=== PATIENT | female | born 1955 | race Caucasian/White ===

== ENCOUNTER → 2019-03-10 | Outpatient (CLI) | payer MEDICARE | END | disposition home or self-care (01) | LOC: LABPAT 17:20 | PROVIDERS: ATTEND Orthopaedic Surgery | DX: Z01.812 Encounter for preprocedural laboratory examination (principal) | CPT/HCPCS: 87070 ==

== ENCOUNTER 2019-04-05 05:51 | Day surgery (SDC) | payer MEDICARE ==
--- NOTE | 2019-04-04 10:35 | HP ---
HISTORY AND PHYSICAL CHIEF COMPLAINT: Right knee pain. HISTORY OF PRESENT ILLNESS: The patient is a 64-year-old female on disability, who presents with progressive right knee pain over the past year. She is having pain with normal weightbearing activities. She notes that it does limit her. She has intermittent swelling as well. She has tried medications in addition to previous injections with only partial temporary relief. PAST MEDICAL HISTORY: Significant for arthritis, depression, type 2 diabetes, and COPD. PAST SURGICAL HISTORY: Significant for previous hysterectomy and eye surgery. CURRENT MEDICATIONS: 1. Albuterol. 2. Fluoxetine. 3. Metformin. 4. Symbicort. She denies drug allergies. FAMILY HISTORY: Significant for cancer, hypertension, and diabetes. SOCIAL HISTORY: Significant for 1/4 pack per day tobacco use. 16 POINT REVIEW OF SYSTEMS: Otherwise reviewed and is noncontributory. PHYSICAL EXAMINATION: The patient is approximately 4 foot 8, 239 pounds of endomorphic habitus. HEENT exam is nonfocal. Neck is supple. She has painless passive motion of her right hip. Straight leg raise is negative. Active motion right knee -10 degrees full extension to 110 degrees of flexion. She is tender about the medial joint line. She has mild effusion. Collaterals are stable, Marcio is negative, Pallavi's is equivocal. She has genu varum alignment. Previous x-rays of the right knee obtained in the office show severe medial and patellofemoral compartment narrowing. IMPRESSION: 1. Right knee severe medial patellofemoral compartment osteoarthrosis. 2. Morbid obesity. 3. Hoy-fzvffvw-znrybjwav diabetes. 4. Chronic obstructive pulmonary disease. RECOMMENDATIONS: I talked to the patient at length regarding her condition along with treatment options. At this point, she is quite symptomatic and limited because of pain related to her osteoarthrosis despite extensive conservative measures. After thorough discussion, she opts to proceed with surgery. We will plan to proceed with right total knee arthroplasty. We will institute DVT prophylaxis postoperatively. Risks and benefits were discussed at length in layman's terms. The patient underwent preoperative pulmonary evaluation by Dr. Whiteside and preoperative cardiac evaluation by Dr. Turner. MMODL / YAMILETN: [id number] /
[~2019-04-05 05:51] MED LIST: ACETAMINOPHEN TAB 500 MG TAB PO ONE; MELOXICAM 7.5 MG TAB PO ONE; TRANEXAMIC ACID 1,000 MG in SODIUM CHLORIDE 0.9% 100 ML IVPB ONE
[2019-04-05] MEDS ORDERED: HYDROmorphone 0.5 MG/0.5 ML SYRINGE IVP PRN ×2 (06:03→09:37)
[2019-04-05] MEDS ORDERED: SCOPOLAMINE 1.5MG/72HR PATCH TRANSDERM ONE (06:03)
[2019-04-05] MEDS ORDERED: ONDANSETRON 4 MG/2 ML VIAL IVP ONE (06:03)
[2019-04-05] MEDS ORDERED: MIDAZOLAM 2 MG/2 ML VIAL IV PRN (06:03)
[2019-04-05] MEDS ORDERED: DEXAMETHASONE SOD PHOSPHATE 10 MG/ML 1 ML VIAL IV ONE (06:03)
[2019-04-05] MEDS: LACTATED RINGERS 1,000 ML IV SCH (06:36)
[2019-04-05] MEDS ORDERED: LIDOCAINE 1% 20 ML VIAL (10MG/ML) FOR IV START INTRADERMA ONE (06:36)
[2019-04-05 06:37] LABS: Glucose,Whole Blood 143 mg/dL (75-99)
[2019-04-05] MEDS ORDERED: PROPOFOL 10 MG/ML 20 ML VIAL IV ONE (08:10)
[2019-04-05] MEDS ORDERED: MIDAZOLAM 2 MG/2 ML VIAL ONE (08:10)
[2019-04-05] MEDS ORDERED: SODIUM CHLORIDE 0.9% 100 ML BAG ONE (08:10)
[2019-04-05] MEDS ORDERED: TRANEXAMIC ACID 1,000 MG/10 ML VIAL ONE (08:10)
[2019-04-05] MEDS ORDERED: KETAMINE 10 MG/ML 20 ML VIAL ONE (08:10)
[2019-04-05] MEDS ORDERED: ROPIVACAINE 5MG/ML 20ML VIAL MISCELLANE ONE (08:48)
[2019-04-05] MEDS ORDERED: ROPIVACAINE 246.25 MG, EPINEPHrine 0.5 MG, KETOROLAC 30 MG, cloNIDine HCL/PF 80 MCG, WA... MISCELLANE ONE ×5 (09:00)
[2019-04-05] MEDS ORDERED: ROPIVACAINE 0.2%-NS ON-Q PUMP 1,090 MG, EMPTY PAIN BALL 1 EACH MISCELLANE PRN (09:12)
--- NOTE | 2019-04-05 09:14 | P.ANPRN ---
Procedure Note - Anesthesia - Nerve Block Performed Right Adductor Canal Infusion Time Out Performed: Yes Date of Procedure: 04/05/19 Procedure Start Time: 07:17 Procedure Stop Time: 07:40 Location of Patient Procedure: PreOp Indication: Acute Post-Operative Pain, Requested by Surgeon (uriah) Specifically requested for management of pain by DrAlex: Jr Perea Sedation Type: Sedate with meaningful contact maintained Preparation: Sterile Prep Position: Supine Catheter Depth at Skin (cm): 8 Catheter: Indwelling Needle Types: Pajunk Needle Gauge: 18 Ultrasound used to visualize needle placement: Yes Ultrasound used to observe medication spread: Yes Injectate: 0.5% Ropivacaine (see comment for volume) (20) Blood Aspirated: No Pain Paresthesia on Injection Noted: No Resistance on Injection: Normal Image Stored and Saved: Yes Events: Other (see comment) (Difficult visualization. used two different machines to achieve only a mediocre view.)
[2019-04-05] MEDS ORDERED: ACETAMINOPHEN TAB 325 MG TAB PO PRN (09:37)
[2019-04-05] MEDS ORDERED: HYDROcodone/APAP 7.5-325MG 1 EACH TAB PO PRN (09:37)
[2019-04-05] MEDS ORDERED: ONDANSETRON 4 MG/2 ML VIAL IVP PRN (09:37)
[2019-04-05] MEDS ORDERED: traMADol 50 MG TAB PO PRN (09:37)
[2019-04-05] MEDS ORDERED: MAGNESIUM HYDROXIDE 2,400 MG/10 ML CUP PO PRN (09:37)
[2019-04-05] MEDS ORDERED: NALOXONE 0.4 MG/ML 1 ML VIAL IV PRN (09:37)
--- NOTE | 2019-04-05 10:04 | P.OP ---
Date of Procedure: 04/05/19 Preoperative Diagnosis: Right knee severe tricompartmental osteoarthrosis Postoperative Diagnosis: Same Procedure(s) Performed: Right total knee arthroplastycruciate retainingcemented Implants: Depuy Attune size 3 narrow cemented femoral component, size 2 cemented tibial component, 9 mm articular surface, 29 mm cemented patellar component. This was a cruciate retaining implant. Anesthesia: regional, local, spinal Surgeon: Jr Perea Agricultural Production Engineer #1: Иван Duffy Estimated Blood Loss (ml): 50 Pathology: other (Bone fragments) Condition: stable Disposition: PACU Indications for Procedure: The patient's a 64-year-old female who presents with progressive right knee pain secondary to osteoarthrosis despite conservative treatment. A discussion of the risks and benefits of operative intervention versus continued conservative measures was made with the patient. She opted to proceed with surgery. Operative risks to include infection, neurovascular injury, development of blood clots, possible component loosening, possible component failure need for subsequent procedures was discussed. Informed consent was obtained. Operative Findings: As below Description of Procedure: The patient was brought to the operating room, and after induction of spinal anesthesia the right lower extremity was prepped and draped in a normal fashion. The tourniquet was inflated to 270 mmHg. A longitudinal incision extending 3 finger breaths above the superior pole of the patella extending to the medial aspect the tibial tubercle was then made. The skin and subcutaneous tissues were divided sharply. Electrocautery was used for hemostasis. A medial parapatellar arthrotomy was then performed. The medial soft tissues to include the superficial and deep portions of the medial collateral ligament as well as the medial hamstring tendons were elevated subperiosteally. The proximal medial tibia osteophytes were carefully removed. The patella was everted. The knee was flexed. A portion of the retropatellar fat pad was excised sharply. The anterior cruciate ligament was sacrificed. A starting hole was made in the distal femur 1 cm anterior to the posterior cruciate origin. An intramedullary femoral guide was gently inserted planning on 5 valgus distal cut with 9 mm distal resection. The cutting block was pinned in place. The distal cut was then made. The posterior referencing sizing guide was utilized. 3 of external rotation was built into the system and verified off the trans- epicondylar axis and the posterior condyles. I felt size 3 was most appropriate. The cutting block was pinned in place. The anterior, posterior, and chamfer cuts were then made. The bone fragments were removed. A sulcus cut was then made with the appropriate guide. The trial size 3 femoral component was then placed and was fully seated. There was good anterior to posterior and medial to lateral fit. The distal peg holes were then drilled. The trial c omponent was then removed. Attention was then paid towards preparing the proximal tibia. An extra medullary guide was utilized in line with the tibial shaft and second metatarsal distally. A 7 posterior slope was planned. I planned on 2 mm resection from the medial compartment. The cutting block was pinned in place. The proximal tibial cut was then made. The bone was removed in one fragment. The remnants of the medial and lateral menisci were excised the capsule junction with electrocautery. The tibia sized most appropriately at size 2. The posterior osteophytes off the distal femur were carefully removed with a curved osteotome. The trial tibial and femoral components were placed along with a 9 millimeters articular surface. I was able to obtain full flexion and extension with good stability with varus and valgus stress. After several flexion and extension cycles, the tibial rotation was marked with electrocautery in line with the medial one third of the tibial tubercle. Attention was then paid towards preparing the patella. A patella reamer was utilized taking this down to 14 mm of bone stock. A good flush cut was made. The patella sized most appropriately at 29 millimeters. The peg holes were then drilled. The trial component was placed. The knee was taken through a range of motion. I had good patellofemoral tracking with no hands technique. The trial components were then removed. The tibia was prepared in the appropriate rotation with appropriate drill and keel punch. The flexion and extension gaps were checked and felt to be symmetric. The posterior soft tissues were injected with ropivacaine. The bony surfaces were prepared with pulsatile lavage and dried. The deep tibial component was then cemented in place and was fully seated. Excess cement was removed. The femoral component was cemented in place and was fully seated. Again excess cement was removed. The trial 9 millimeters surface was then inserted in the knee was put in full extension. The patella component was cemented in place. After the cement had sufficiently hardened, the knee was again taken through a range of motion. Again there was good stability in flexion and extension with varus and valgus stress. The trial articular surface was then removed. The final articular surface was placed and was impacted. Care was taken to avoid any soft tissue interposition. Pulsatile lavage was again utilized. The tourniquet was deflated with approximately 50 minutes total tourniquet time. There was minimal drainage therefore a deep drain was not placed. The medial parapatellar arthrotomy was then closed with #2 Ethibond suture. The subcutaneous tissues were reapproximated interrupted 2-0 Vicryl sutures. The skin was reapproximated with 3-0 subarticular strata fix suture. Skin tape and adhesive was applied. A sterile dressing was applied. The patient was then awoken from sedation and transferred to recovery room in good condition. Blood loss was estimated at 50 milliliters. No complications were incurred. Sponge and needle counts were correct at the end the case. Nickolas TORRES assisted during the major components this case to include exposure, bone resection, and implantation.
--- NOTE | 2019-04-05 10:19 | XR ---
EXAMINATION TYPE: XR knee limited RT DATE OF EXAM: 04/05/2019 COMPARISON: NONE TECHNIQUE: Two views submitted HISTORY: Post op FINDINGS: There is a prosthetic knee in near anatomic alignment. There is soft tissue edema and emphysema. Tamayo rgical drain noted. Soft tissue calcifications are likely vascular. IMPRESSION: 1. Postoperative change. Appears in near-anatomic alignment
[2019-04-05 10:24] LABS: Glucose,Whole Blood 174 mg/dL (75-99)
[2019-04-05 11:00] VITALS: BMI 53.8
--- NOTE | 2019-04-05 12:47 | P.CNPUL ---
History of Present Illness Consult date: 04/05/19 Requesting physician: Jr Perea Reason for consult: COPD Chief complaint: Right knee pain History of present illness: This is a very pleasant 64-year-old female patient who follows with Dr. Lyon as her primary care physician. She has a history of diabetes mellitus, depression, osteoarthritis. She has chronic tobacco dependence and subsequent chronic obstructive pulmonary disease, restrictive lung disease, obstructive sleep apnea on home CPAP and follows with Dr. Whiteside in our office for the same. She was seen in the office 03/25/2019 for preop clearance of the right knee replacement. Pulmonary function tests revealed an FEV1 value 53% of predicted with moderate restrictive lung disease. He is seen today in the postoperative period on the regular medical floor. She did undergo a total right knee replacement this morning by Dr. Perea. She is currently awake and alert in no acute distress. She is maintaining good O2 saturations in the 90s on 3 L/m per nasal cannula. She's been afebrile. Hemodynamically stable. Awake and alert in no acute distress. No shortness of breath, cough or congestion. Her pain is well controlled. Anticoagulated with Xarelto. Pain pump in place. Review of Systems REVIEW OF SYSTEMS: CONSTITUTIONAL: Denies any recent significant weight loss or weight gain. EYES: Denies change in vision. EARS, NOSE, MOUTH, THROAT: Denies headaches, denies sore throat. CARDIOVASCULAR: Denies chest pain, palpitations or syncopal episodes. RESPIRATORY: Denies shortness of breath, cough, congestion or hemoptysis. GASTROINTESTINAL: Denies change in appetite, denies abdominal pain GENITOURINARY: Denies hematuria, denies infections. MUSKULOSKELETAL: Ongoing right knee pain. INTEGUMENTARY: Denies rash, denies eczema. NEUROLOGICAL: Denies recent memory loss, no recent seizure activity. PSYCHIATRIC: Denies anxiety, denies depression. HEMATOLOGIC/LYMPHATIC: Denies anemia, denies enlarged lymph nodes. Past Medical History Past Medical History: Asthma, Cancer, COPD, Diabetes Mellitus, Eye Disorder, Hyperlipidemia, Osteoarthritis (OA), Sleep Apnea/CPAP/BIPAP Additional Past Medical History / Comment(s): Uterine CA 2016. Glaucoma. CTS Rt wrist. Uses CPAP. History of Any Multi-Drug Resistant Organisms: None Reported Past Surgical History: Section, Hysterectomy Additional Past Surgical History / Comment(s): C-S x2. D&C. Eyelid surgery. Past Anesthesia/Blood Transfusion Reactions: Previous Problems w/ Anesthesia Additional Past Anesthesia/Blood Transfusion Reaction / Comment(s): Woke up once trying to pull ET tube out, had to be restrained. Past Psychological History: Depression Smoking Status: Former smoker Past Alcohol Use History: Rare Additional Past Alcohol Use History / Comment(s): Smoked 45 years, 1 ppd, quit 02/16/19. Past Drug Use History: None Reported - Past Family History Father Family Medical History: Cancer Medications and Allergies Home Medications Medication Instructions Recorded Confirmed Type Albuterol Inhaler [Ventolin Hfa 1 - 2 puff INHALATION RT-Q6H PRN 04/01/19 04/05/19 History Inhaler] Albuterol Nebulizer 1 inhalation INHALATION QID PRN 04/01/19 04/05/19 History Budesonide-Formot 160-4.5 Mcg 2 puff INHALATION BID 04/01/19 04/05/19 History [Symbicort 160-4.5 Mcg Inhaler] Dapagliflozin Propanediol [Farxiga] 10 mg PO DAILY 04/01/19 04/05/19 History FLUoxetine HCL [PROzac] 20 mg PO DAILY 04/01/19 04/05/19 History HYDROcodone/APAP 5-325MG [Sharon 1 tab PO TID PRN 04/01/19 04/05/19 History 5-325] Latanoprost/Pf [Latanoprost 0.005% 1 drop BOTH EYES HS 04/01/19 04/05/19 History Eye Drop] Montelukast [Singulair] 10 mg PO HS 04/01/19 04/05/19 History Pioglitazone [Actos] 45 mg PO DAILY 04/01/19 04/05/19 History metFORMIN HCL [Glucophage] 850 mg PO BID 04/01/19 04/05/19 History Allergies Allergy/AdvReac Type Severity Reaction Status Date / Time No Known Allergies Allergy Verified 04/05/19 06:24 Physical Exam Vitals: Vital Signs Temp Pulse Pulse Resp BP BP Pulse Ox 04/05/19 10:30 65 16 109/59 95 04/05/19 10:14 60 16 103/56 94 L 04/05/19 09:59 97 F L 60 14 110/57 95 04/05/19 07:48 65 16 122/57 96 04/05/19 06:13 98.8 F 70 16 145/66 93 L Intake and Output 04/04/19 04/05/19 04/05/19 22:59 06:59 14:59 Intake Total 600 475 Output Total 50 Balance 600 425 Intake: IV 600 475 Output: Estimated Blood Loss 50 GENERAL EXAM: Alert, obese pleasant 64-year-old female on 3 L nasal cannula, comfortable in no apparent distress. HEAD: Normocephalic. EYES: Normal reaction of pupils, equal size. NOSE: Clear with pink turbinates. THROAT: Crowding of the posterior pharynx. No erythema or exudates. NECK: Short. No masses, no JVD. CHEST: No chest wall deformity. LUNGS: Equal air entry with no crackles, wheeze, rhonchi or dullness. CVS: S1 and S2 normal with no audible murmur, regular rhythm. ABDOMEN: No hepatosplenomegaly, normal bowel sounds, no guarding or rigidity. SPINE: No scoliosis or deformity SKIN: No rashes CENTRAL NERVOUS SYSTEM: No focal deficits, tone is normal in all 4 extremities. EXTREMITIES: Genaro wrap to the right knee. Pain pump in place. Peripheral pulses intact. Results - Laboratory Findings Abnormal lab findings: Abnormal Labs 04/05/19 04/05/19 06:35 10:22 POC Glucose (mg/dL) 143 H 174 H Assessment and Plan Assessment: #1 Right knee pain status post total right knee arthroplasty, postoperative day #0. #2 Osteoarthritis. #3 Morbid obesity. #4 Obstructive sleep apnea, utilizing home CPAP. #5 Chronic tobacco dependence. #6 Chronic obstructive/restrictive pulmonary disease, currently inactive and stable. #7 Diabetes mellitus. #8 History of depression. Plan: The patient was seen and evaluated by Dr. Whiteside. She is currently stable from the pulmonary standpoint. We will order Symbicort and albuterol inhalations. Continue Singulair. Pain is adequately controlled. Add incentive spirometer. Increase her activity as tolerated. Anticoagulated with Xarelto. We'll continue to follow and make further recommendations based on her clinical status. I, the cosigning physician, performed a history & physical examination of the patient. Lungs sounds are clear. Maintaining good O2 saturations in the 90s on 3 L/m per nasal cannula. I discussed the assessment and plan of care with my nurse practitioner, Erica Blake. I attest to the above note as dictated by her. Time with Patient: Greater than 30
[2019-04-05] MEDS: HYDROcodone/APAP 7.5-325MG 1 EACH TAB PO PRN ×2 (15:27→19:48)
[2019-04-05] MEDS: metFORMIN 850 MG TAB PO SCH (17:44)
[2019-04-05] MEDS: ALBUTEROL NEBULIZED 2.5 MG/3 ML INHALATION PRN (19:43)
[2019-04-05] MEDS: SYMBICORT 160-4.5 MCG INHALER INHALATION SCH (19:44)
[2019-04-05 20:21] LABS: Glucose,Whole Blood 237 mg/dL (75-99)
[2019-04-05] MEDS ORDERED: SENNOSIDES-DOCUSATE SODIUM 1 EACH TAB PO SCH (21:00)
[2019-04-05] MEDS ORDERED: MONTELUKAST 10 MG TAB PO SCH (21:00)
[2019-04-06] MEDS: HYDROcodone/APAP 7.5-325MG 1 EACH TAB PO PRN ×2 (05:39→12:18)
[2019-04-06] MEDS: LACTATED RINGERS 1,000 ML IV SCH (06:22)
[2019-04-06 07:19] LABS: Anisocytosis Slight; Basophils % (A) 0 %; Eosinophils % (A) 0 %; HCT 45.4 % (34.0-46.0); HGB 13.7 gm/dL (11.4-16.0); Hypochromasia Slight; Lymphocytes % (A) 6 %; MCH 25.1 pg (25.0-35.0); MCHC 30.2 g/dL (31.0-37.0); Mean Platelet Volume 7.4; Monocytes # (A) 0.6 k/uL (0-1.0); Monocytes % (A) 4 %; Neutrophils # (A) 14.5 k/uL (1.3-7.7); Neutrophils % (A) 89 %; Platelet Count 315 k/uL (150-450); RBC 5.47 m/uL (3.80-5.40); RDW 16.6 % (11.5-15.5); WBC 16.3 k/uL (3.8-10.6)
[2019-04-06] MEDS: ALBUTEROL NEBULIZED 2.5 MG/3 ML INHALATION PRN (07:46)
[2019-04-06] MEDS: SYMBICORT 160-4.5 MCG INHALER INHALATION SCH (07:46)
[2019-04-06] MEDS: metFORMIN 850 MG TAB PO SCH (08:17)
[2019-04-06 08:24] VITALS: BP 120/67; PULSE 68; RESP 16; TEMP 98.1
[2019-04-06] MEDS ORDERED: RIVAROXABAN 10 MG TAB PO SCH (09:00)
[2019-04-06] MEDS ORDERED: PIOGLITAZONE 45 MG TAB PO SCH (09:00)
[2019-04-06] MEDS ORDERED: FLUoxetine HCL 20 MG CAP PO SCH (09:00)
--- NOTE | 2019-04-06 11:28 | P.PN ---
Subjective Progress Note Date: 04/06/19 Principal diagnosis: Status post right total knee arthroplasty Patient evaluated at bedside, she's resting comfortably. She's ambulated well with therapy. She denies any chest pain or shortness of breath. Her pain is controlled. Objective - Vital Signs Vital signs: Vital Signs Temp 98.1 F 04/06/19 08:23 Pulse 68 04/06/19 08:23 Resp 16 04/06/19 08:23 BP 120/67 04/06/19 08:23 Pulse Ox 94 L 04/06/19 08:23 Intake & Output 04/05/19 04/06/19 04/06/19 18:59 06:59 18:59 Intake Total 919 Output Total 50 Balance 869 Intake: IV 475 Oral 444 Output: Estimated Blood Loss 50 Other: Voiding Method Toilet Toilet # Voids 1 1 - Exam Right lower extremity: Incision is clean, dry, and intact. The exofin fusion tape is in good condition. There is minimal soft tissue swelling and ecchymosis surrounding the medial and lateral aspects of the incision. Calf is soft, no tenderness with palpation. Plantar flexion, dorsiflexion, EHL, FHL are intact. Sensory exam to light touch throughout the extremity is intact, dorsal pedis pulses 2+. - Labs CBC & Chem 7: 04/06/19 06:46 Labs: Abnormal Lab Results - Last 24 Hours (Table) 04/05/19 04/06/19 Range/Units 20:13 06:46 WBC 16.3 H (3.8-10.6) k/uL RBC 5.47 H (3.80-5.40) m/uL MCHC 30.2 L (31.0-37.0) g/dL RDW 16.6 H (11.5-15.5) % Neutrophils # 14.5 H (1.3-7.7) k/uL POC Glucose (mg/dL) 237 H (75-99) mg/dL Assessment and Plan Plan: Assessment: Postop day #1 status post right total knee arthroplasty Plan: Pain control, discharge on oral medication GI and DVT prophylaxis, aspirin 81 mg twice a day Wound care instructions discussed Ice and elevate often Medical recommendations Plan for discharge home today Time with Patient: Less than 30
--- NOTE | 2019-04-06 11:33 | P.DS ---
Providers Date of admission: 04/05/2019 Expected date of discharge: 04/06/19 Attending physician: Jr Perea Consults: 04/05/19 09:39 Consult Physician Routine Consulting Provider: Gary Whiteside Reason/Comments: Medical Management Do you want consulting provider notified?: Yes Primary care physician: Zachariah Lyon Hospital Course: Date of admission: 04/05/2019 Date of discharge: 04/06/2019 Admission diagnosis: Status post right total knee arthroplasty Discharge diagnosis: Same Attending physician: Dr. Perea Surgical procedures: Right total knee arthroplasty Brief history: Patient is a 64-year-old female with a history of progressive primary right knee osteoarthritis. At this point patient has failed conservative treatment measures and has opted to proceed with a elective right total knee arthroplasty. Hospital course: Details of patient's surgery can be found in operative report. Patient tolerated the procedure well and was subsequently transported to orthopedic floor. Patient's orthopeidc and medical care was provided daily. Patient had daily laboratory tests performed for evaluation of overall blood counts. Patient had daily physical therapy to include strengthening range of motion as well as education with walker ambulation. Patient had daily CPM usage as part of their physical therapy program. Patient was treated with Xarelto for their postoperative DVT prophylaxis during their inpatient stay. Patient was noted to have a relatively uneventful postoperative course. Patient reported satisfactory pain control with oral pain medications by postoperative day 0. Patient showed satisfactory progress with physical therapy. Patient moved steadily through the program and had no difficulty meeting the goals by postoperative day 1. Given patient's otherwise satisfactory course and having met physical therapy goals, plan is to discharge patient home on postoperative day 1. Discharge condition/disposition: Patient will be discharged home in stable condition. Discharge medications: Instructions are given on resumption of patient's normal daily medications per primary care recommendation, in addition patient will be prescribed [place] 7.5 mg/325 mg, Colace 200 mg, Eliquis 2.5mg. Discharge instructions: 1. Wound care and infection precautions, keep incision dry and covered while showering , no lotions, creams, moisturizers. No soaking, tubs, pools, hottubs. Do not scrub over the incision. 2. Weight-bear as tolerated with walker / cane until follow-up. 3. Ice and elevate when necessary. Do not exceed 20 minutes per hour with ice pack. 4. Utilize compression sleeve until seen at first follow up appointment. 5. Visiting nursing care. 6. Home physical therapy including home CPM. 7. Pain meds and anticoagulants per prescription. 8. Pain medication has potential to cause constipation. Increase oral fluid and fiber intake. Contact primary care provider if you have not had a bowel movement within 48 hours after discharge 9. No anti-inflammatory medication until discussed at first post operative visit, this including Motrin, Aleve, Mobic, Diclofenac. 10. Follow up in office at 2 weeks postop with Nickolas Duffy PA-C 11. Follow up with your primary care doctor 7-10 days after discharge. 12. Contact [facility] with any questions, . Procedures: Right total knee arthroplasty Patient Condition at Discharge: Good Plan - Discharge Summary Discharge Rx Participant: No New Discharge Prescriptions: New Docusate [Colace] 100 mg PO DAILY #30 capsule Apixaban [Eliquis] 2.5 mg PO BID #60 tab HYDROcodone/APAP 7.5-325MG [[place] 7.5] 1 - 2 each PO Q6HR PRN #56 tab PRN Reason: Pain No Action Budesonide-Formot 160-4.5 Mcg [Symbicort 160-4.5 Mcg Inhaler] 2 puff INHALATION BID Albuterol Inhaler [Ventolin Hfa Inhaler] 1 - 2 puff INHALATION RT-Q6H PRN PRN Reason: COPD Pioglitazone [Actos] 45 mg PO DAILY FLUoxetine HCL [PROzac] 20 mg PO DAILY HYDROcodone/APAP 5-325MG [[place] 5-325] 1 tab PO TID PRN PRN Reason: Pain Dapagliflozin Propanediol [Farxiga] 10 mg PO DAILY metFORMIN HCL [Glucophage] 850 mg PO BID Montelukast [Singulair] 10 mg PO HS Albuterol Nebulizer 1 inhalation INHALATION QID PRN PRN Reason: COPD Latanoprost/Pf [Latanoprost 0.005% Eye Drop] 1 drop BOTH EYES HS Discharge Medication List Albuterol Inhaler [Ventolin Hfa Inhaler] 1 - 2 puff INHALATION RT-Q6H PRN 04/01/19 [History] Albuterol Nebulizer 1 inhalation INHALATION QID PRN 04/01/19 [History] Budesonide-Formot 160-4.5 Mcg [Symbicort 160-4.5 Mcg Inhaler] 2 puff INHALATION BID 04/01/19 [History] Dapagliflozin Propanediol [Farxiga] 10 mg PO DAILY 04/01/19 [History] FLUoxetine HCL [PROzac] 20 mg PO DAILY 04/01/19 [History] Latanoprost/Pf [Latanoprost 0.005% Eye Drop] 1 drop BOTH EYES HS 04/01/19 [History] Montelukast [Singulair] 10 mg PO HS 04/01/19 [History] Pioglitazone [Actos] 45 mg PO DAILY 04/01/19 [History] metFORMIN HCL [Glucophage] 850 mg PO BID 04/01/19 [History] Apixaban [Eliquis] 2.5 mg PO BID #60 tab 04/06/19 [Rx] Docusate [Colace] 100 mg PO DAILY #30 capsule 04/06/19 [Rx] HYDROcodone/APAP 7.5-325MG [[place] 7.5] 1 - 2 each PO Q6HR PRN #56 tab 04/06/19 [Rx] Follow up Appointment(s)/Referral(s): [facility], [NON-STAFF] - 1 Week Zachariah Lyon MD [Primary Care Provider] - 1 Week Иван Duffy PAC [PHYSICIAN PINION POLISHER] - 04/20/19 3:00 pm Activity/Diet/Wound Care/Special Instructions: Orthopedic Discharge Instructions: 1. Wound care and infection precautions, keep incision dry and covered while showering, no lotions, creams, moisturizers. No soaking, pools, hot tubs. Do not scrub over incision. 2. Weight-bear as tolerated with walker / cane until follow-up. 3. Ice and elevate when necessary. Do not exceed 20 minutes per hour with ice pack. 4. Utilize compression sleeve until seen at first follow up appointment. 5. Pain meds and anticoagulants per prescription. 6. Pain medication has potential to cause constipation. Increase oral fluid and fiber intake. Contact primary care provider if you have not had a bowel movement within 48 hours after discharge. 7. No anti-inflammatory medication until discussed at first post operative visit, this including Motrin, Aleve, Mobic, Diclofenac. 8. Follow up in office at 2 weeks postop with Nickolas Duffy PA-C 9. Follow up with your primary care doctor 7-10 days after discharge. 10. Contact [facility] with any questions, [phone]. 11. *Please call [facility] once home to arrange delivery of Continuous Passive Motion (CPM) machine - [phone] Discharge Disposition: HOME WITH HOME HEALTH SERVICES
[2019-04-06 11:49] LABS: Glucose,Whole Blood 146 mg/dL (75-99)
--- NOTE | 2019-04-06 12:12 | P.PN ---
Progress Note - Text Anesthesia POD 1. Patient is status post right TKR under spinal anesthesia with a right adductor canal catheter placed for postoperative pain relief. With ropivacaine 0.2% running at 8 cc's per hour, the patient's VAS is (1, 3). Catheter site is clean dry and intact.
--- NOTE | 2019-04-06 12:20 | P.PN ---
Subjective Progress Note Date: 04/06/19 Principal diagnosis: Right knee pain status post right total knee arthroplasty, history of COPD, and obstructive sleep apnea On 04/06/2019 patient seen in follow-up on medical surgical floor. She is awake and alert, she is resting comfortably in bed, she is on room air, she did wear her CPAP unit from home last night. She denies any respiratory difficulty, no chest pain, lung sounds are clear to auscultation, no acute issues overnight, she has already been up out of bed with a walker, and physical therapy, tolerated activity very well, she is working on the incentive spirometer, Nasal[place] of coaching and encouragement, she is only to 250-500 on the today. The pain is controlled. Today's labs have been reviewed, white blood cell count of 16.3, hemoglobin is 13.7, there have been no fever or chills, vital signs have been stable. Objective - Vital Signs Vital signs: Vital Signs Temp 98.1 F 04/06/19 08:23 Pulse 68 04/06/19 08:23 Resp 16 04/06/19 08:23 BP 120/67 04/06/19 08:23 Pulse Ox 94 L 04/06/19 08:23 Intake & Output 04/05/19 04/06/19 04/06/19 18:59 06:59 18:59 Intake Total 919 Output Total 50 Balance 869 Intake: IV 475 Oral 444 Output: Estimated Blood Loss 50 Other: Voiding Method Toilet Toilet # Voids 1 1 - Exam GENERAL EXAM: Alert, pleasant, 64-year-old obese white female, comfortable in no apparent distress. HEAD: Normocephalic/atraumatic. EYES: Normal reaction of pupils, equal size. Conjunctiva pink, sclera white. NOSE: Clear with pink turbinates. THROAT: No erythema or exudates. NECK: No masses, no JVD, no thyroid enlargement, no adenopathy. CHEST: No chest wall deformity. Symmetrical expansion. LUNGS: Equal air entry with no crackles, wheeze, rhonchi or dullness. CVS: Regular rate and rhythm, normal S1 and S2, no gallops, no murmurs, no rubs ABDOMEN: Soft, nontender, obese. No hepatosplenomegaly, normal bowel sounds, no guarding or rigidity. EXTREMITIES: No clubbing, no edema, no cyanosis, 2+ pulses and upper and lower extremities. Right knee dressing is clean dry and intact, right thigh pain infusion catheter in place MUSCULOSKELETAL: Muscle strength and tone normal. SPINE: No scoliosis or deformity SKIN: No rashes CENTRAL NERVOUS SYSTEM: Alert and oriented -3. No focal deficits, tone is normal in all 4 extremities. PSYCHIATRIC: Alert and oriented -3. Appropriate affect. Intact judgment and insight. - Labs CBC & Chem 7: 04/06/19 06:46 Labs: Abnormal Lab Results - Last 24 Hours (Table) 04/05/19 04/06/19 04/06/19 Range/Units 20:13 06:46 11:45 WBC 16.3 H (3.8-10.6) k/uL RBC 5.47 H (3.80-5.40) m/uL MCHC 30.2 L (31.0-37.0) g/dL RDW 16.6 H (11.5-15.5) % Neutrophils # 14.5 H (1.3-7.7) k/uL POC Glucose (mg/dL) 237 H 146 H (75-99) mg/dL Assessment and Plan Plan: Assessment: #1 Right knee pain status post total right knee arthroplasty, postoperative day #1. #2 Osteoarthritis. #3 Morbid obesity. #4 Obstructive sleep apnea, utilizing home CPAP. #5 Chronic tobacco dependence. #6 Chronic obstructive/restrictive pulmonary disease, currently inactive and sta ble. #7 Diabetes mellitus. #8 History of depression. Plan: Patient remains stable from pulmonary perspective, no acute issues overnight, continue encouraging deep breathing and coughing, she has been up out of bed with a walker and physical therapy, tolerated activity well, pain is under good control. She is on oral anticoagulation, she has her CPAP unit from home and she is utilizing it at night. No specific complaints. Anticipate discharge home today I performed a history & physical examination of the patient and discussed their management with my nurse practitioner, Pauly Blackburn. I reviewed the nurse practitioner's note and agree with the documented findings and plan of care. Lung sounds are positive for clear breath sounds. The findings and the impression was discussed with the patient. I attest to the documentation by the nurse practitioner. Time with Patient: Less than 30
== END 2019-04-06 13:47 | disposition home health service (06) ==
LOC: OR 05:51 → 4SSUR 09:38 → OR 04-06 13:47
PROVIDERS: ATTEND Orthopaedic Surgery
DX: M17.11 Unilateral primary osteoarthritis, right knee (principal); M21.161 Varus deformity, not elsewhere classified, right knee; F32.9 Major depressive disorder, single episode, unspecified; E11.9 Type 2 diabetes mellitus without complications; J44.9 Chronic obstructive pulmonary disease, unspecified; I25.10 Atherosclerotic heart disease of native coronary artery without angina pectoris; Z90.710 Acquired absence of both cervix and uterus; E66.01 Morbid (severe) obesity due to excess calories; Z87.891 Personal history of nicotine dependence; Z68.43 Body mass index [BMI] 50.0-59.9, adult; Z97.2 Presence of dental prosthetic device (complete) (partial); E78.5 Hyperlipidemia, unspecified; G47.33 Obstructive sleep apnea (adult) (pediatric); Z99.89 Dependence on other enabling machines and devices; Z85.42 Personal history of malignant neoplasm of other parts of uterus; I51.7 Cardiomegaly; Z80.9 Family history of malignant neoplasm, unspecified; Z82.49 Family history of ischemic heart disease and other diseases of the circulatory system; Z84.89 Family history of other specified conditions; Z83.3 Family history of diabetes mellitus; Z80.42 Family history of malignant neoplasm of prostate; Z79.84 Long term (current) use of oral hypoglycemic drugs; Z79.51 Long term (current) use of inhaled steroids; Z79.899 Other long term (current) drug therapy; Z79.891 Long term (current) use of opiate analgesic; H40.9 Unspecified glaucoma
CPT/HCPCS: 94640 ×4; 97161; 64448; 76942; 88305; 85025; 88311; 73560; 27447; C1713; C1776; J2250; J1100; J0690 ×2; J2405; J2704; J1170; J2795 ×2

== ENCOUNTER 2019-11-15 09:42 | Inpatient (IN) | payer MEDICARE ==
--- NOTE | 2019-11-15 10:15 | ED ---
Neuro HPI - General Chief Complaint: Neuro Symptoms/Deficit Stated Complaint: scott's palsy Time Seen by Provider: 11/15/19 09:52 Source: patient, RN notes reviewed Mode of arrival: ambulatory Limitations: no limitations - History of Present Illness Is the patient presenting with stroke symptoms?: Yes Last Known Well Date: 11/15/19 Last Known Well Time: 03:00 Initial Comments: This is a 64-year-old female history of COPD asthma type 2 diabetes also obesity and a smoker who states he had the onset about 3 AM this morning of what she thinks is Scott's palsy she feels similar when she had to 35 years ago 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 She denies any headache blurry vision loss of function to her upper or lower extremities no fevers chills sweats trauma or other modifying factors at this time. - Related Data Home Medications: Home Medications Medication Instructions Recorded Confirmed Dapagliflozin Propanediol [Farxiga] 10 mg PO DAILY 04/01/19 11/15/19 FLUoxetine HCL [PROzac] 20 mg PO DAILY 04/01/19 11/15/19 Montelukast [Singulair] 10 mg PO HS 04/01/19 11/15/19 metFORMIN HCL [Glucophage] 850 mg PO BID 04/01/19 11/15/19 Allergies/Adverse Reactions: Allergies Allergy/AdvReac Type Severity Reaction Status Date / Time No Known Allergies Allergy Verified 11/15/19 11:23 Review of Systems ROS Statement: Those systems with pertinent positive or pertinent negative responses have been documented in the HPI. ROS Other: All systems not noted in ROS Statement are negative. General Exam - General Exam Comments Initial Comments: This is a well-developed morbidly obese female who is awake alert oriented 3 Limitations: no limitations General appearance: alert, in no apparent distress Head exam: Present: atraumatic, normocephalic, normal inspection Eye exam: Present: PERRL, EOMI Pupils: Present: other (There is appear to be lid lag on the left however some facial asymmetry on the right lower face) ENT exam: Present: other Neck exam: Present: normal inspection, full ROM, other (No stridor JVD or bruits) Respiratory exam: Present: normal lung sounds bilaterally. Absent: respiratory distress, wheezes, rales, rhonchi, stridor Cardiovascular Exam: Present: regular rate, normal rhythm, normal heart sounds. Absent: systolic murmur, diastolic murmur, rubs, gallop, clicks GI/Abdominal exam: Present: soft, normal bowel sounds, other (Obese abdomen). Absent: distended, tenderness, guarding, rebound, rigid Extremities exam: Present: normal inspection, full ROM, normal capillary refill. Absent: tenderness, pedal edema, joint swelling, calf tenderness Back exam: Present: normal inspection Neurological exam: Present: alert, oriented X3, CN II-XII intact Psychiatric exam: Present: normal affect, normal mood Skin exam: Present: warm, dry, intact, normal color. Absent: rash Stroke MDM - Lab Data Result diagrams: 11/15/19 10:15 11/15/19 10:18 Lab Results 11/15/19 11/15/19 11/15/19 Range/Units 10:15 10:18 10:18 WBC 7.0 (3.8-10.6) k/uL RBC 6.12 H (3.80-5.40) m/uL Hgb 15.7 (11.4-16.0) gm/dL Hct 50.6 H (34.0-46.0) % MCV 82.7 (80.0-100.0) fL MCH 25.6 (25.0-35.0) pg MCHC 31.0 (31.0-37.0) g/dL RDW 16.0 H (11.5-15.5) % Plt Count 235 (150-450) k/uL Neutrophils % 75 % Lymphocytes % 15 % Monocytes % 5 % Eosinophils % 3 % Basophils % 1 % Neutrophils # 5.3 (1.3-7.7) k/uL Lymphocytes # 1.0 (1.0-4.8) k/uL Monocytes # 0.3 (0-1.0) k/uL Eosinophils # 0.2 (0-0.7) k/uL Basophils # 0.1 (0-0.2) k/uL Hypochromasia Slight PT 10.5 (9.0-12.0) sec INR 1.0 (<1.2) APTT 24.0 (22.0-30.0) sec Sodium 133 L (137-145) mmol/L Potassium 4.8 (3.5-5.1) mmol/L Chloride 101 (98-107) mmol/L Carbon Dioxide 25 (22-30) mmol/L Anion Gap 7 mmol/L BUN 14 (7-17) mg/dL Creatinine 0.69 (0.52-1.04) mg/dL Est GFR (CKD-EPI)AfAm >90 (>60 ml/min/1.73 sqM) Est GFR (CKD-EPI)NonAf >90 (>60 ml/min/1.73 sqM) Glucose 500 H (74-99) mg/dL Calcium 9.0 (8.4-10.2) mg/dL Total Bilirubin 0.4 (0.2-1.3) mg/dL AST 44 H (14-36) U/L ALT 29 (4-34) U/L Alkaline Phosphatase 229 H (38-126) U/L Creatine Kinase 34 (30-135) U/L Troponin I (0.000-0.034) ng/mL Total Protein 6.9 (6.3-8.2) g/dL Albumin 3.5 (3.5-5.0) g/dL 11/15/19 Range/Units 10:18 WBC (3.8-10.6) k/uL RBC (3.80-5.40) m/uL Hgb (11.4-16.0) gm/dL Hct (34.0-46.0) % MCV (80.0-100.0) fL MCH (25.0-35.0) pg MCHC (31.0-37.0) g/dL RDW (11.5-15.5) % Plt Count (150-450) k/uL Neutrophils % % Lymphocytes % % Monocytes % % Eosinophils % % Basophils % % Neutrophils # (1.3-7.7) k/uL Lymphocytes # (1.0-4.8) k/uL Monocytes # (0-1.0) k/uL Eosinophils # (0-0.7) k/uL Basophils # (0-0.2) k/uL Hypochromasia PT (9.0-12.0) sec INR (<1.2) APTT (22.0-30.0) sec Sodium (137-145) mmol/L Potassium (3.5-5.1) mmol/L Chloride (98-107) mmol/L Carbon Dioxide (22-30) mmol/L Anion Gap mmol/L BUN (7-17) mg/dL Creatinine (0.52-1.04) mg/dL Est GFR (CKD-EPI)AfAm (>60 ml/min/1.73 sqM) Est GFR (CKD-EPI)NonAf (>60 ml/min/1.73 sqM) Glucose (74-99) mg/dL Calcium (8.4-10.2) mg/dL Total Bilirubin (0.2-1.3) mg/dL AST (14-36) U/L ALT (4-34) U/L Alkaline Phosphatase (38-126) U/L Creatine Kinase (30-135) U/L Troponin I <0.012 (0.000-0.034) ng/mL Total Protein (6.3-8.2) g/dL Albumin (3.5-5.0) g/dL - NIH Stroke Scale 1a. Level of Consciousness: (0) alert 1b. LOC Questions: (0) answers correctly 1c. LOC Commands: (0) performs tasks correctly 2. Best Gaze: (0) normal 3. Visual: (0) no visual loss 4. Facial Palsy: (2) partial paralysis 5a. Motor Arm Left: (0) no drift 5b. Motor Arm Right: (0) no drift 6a. Motor Leg Left: (0) no drift 6b. Motor Leg Right: (0) no drift 7. Limb Ataxia: (0) absent 8. Sensory: (0) normal 9. Best Language: (0) no aphasia 10. Dysarthria: (0) normal 11. Extinction/Inattention: (0) no abnormality Past Medical History Past Medical History: Asthma, COPD, Diabetes Mellitus, Sleep Apnea/CPAP/BIPAP History of Any Multi-Drug Resistant Organisms: None Reported Past Surgical History: Section, Hysterectomy, Joint Replacement Additional Past Surgical History / Comment(s): eyelid surgery, right knee replacement Past Psychological History: Depression Smoking Status: Current every day smoker Past Alcohol Use History: None Reported Past Drug Use History: None Reported Course Vital Signs 11/15/19 11/15/19 11/15/19 09:45 10:36 10:54 Temperature 97.9 F 98.6 F 98.6 F Pulse Rate 63 63 91 Respiratory 18 18 18 Rate Blood Pressure 139/75 110/53 113/53 O2 Sat by Pulse 93 L 96 93 L Oximetry - Reevaluation(s) Reevaluation #1: 11/15/19 12:46 I did reevaluate patient several occasions I did talk to Dr. Kerr we did respond to a code stroke. Patient now seems to demonstrate evidence of 4 head involvement on the right CTs were negative for evidence of acute obstruction. The recommendation was for admission and neuro evaluation. The patient has agreed with this. Critical Care Time Critical Care Time: Yes Total Critical Care Time: 31 Critical Care Time: 31 minutes of critical care time which includes initial presentation with history physical labs x-rays several reevaluation the patient. Discussion with the neuro interventional is. Discussed with the admitting physician Dr. Mtz admission orders and documentation of the above Disposition Clinical Impression: Cerebrovascular accident (CVA), Scott's palsy Disposition: ADMITTED IP TO THIS HOSP Condition: Fair Referrals: Zachariah Lyon MD [Primary Care Provider] - 1-2 days
--- NOTE | 2019-11-15 10:41 | CT ---
EXAMINATION TYPE: CT brain wo con DATE OF EXAM: 11/15/2019 COMPARISON: None HISTORY: CODE STROKE Unenhanced CT of the brain was performed. The ventricles, basal cisterns and sulci overlying the cerebral convexities demonstrate mild enlargem ent. There is no evidence for intracranial hemorrhage or sulcal effacement. There is decreased attenuation about the periventricular white matter and deep white matter of both c erebral hemispheres, compatible with chronic small vessel ischemia. Differential diagnosis does inclu de demyelination. No mass effects are seen.No midline shift. Osseous calvarium is intact. If symptoms persist consider MRI. IMPRESSION: 1. Age related atrophic and chronic small vessel ischemic change without acute intracranial process s een at this time.
[2019-11-15 10:42] LABS: Basophils # (A) 0.1 k/uL (0-0.2); Basophils % (A) 1 %; Eosinophils # (A) 0.2 k/uL (0-0.7); Eosinophils % (A) 3 %; HCT 50.6 % (34.0-46.0); HGB 15.7 gm/dL (11.4-16.0); Hypochromasia Slight; Lymphocytes % (A) 15 %; MCH 25.6 pg (25.0-35.0); MCV 82.7 fL (80.0-100.0); Mean Platelet Volume 8.7; Monocytes # (A) 0.3 k/uL (0-1.0); Monocytes % (A) 5 %; Neutrophils # (A) 5.3 k/uL (1.3-7.7); Neutrophils % (A) 75 %; Platelet Count 235 k/uL (150-450); RBC 6.12 m/uL (3.80-5.40)
[2019-11-15 10:54] LABS: ALT 29 U/L (4-34); AST 44 U/L (14-36); African American GFR (CKD) >90 (>60 ml/min/1.73 sqM); Albumin 3.5 g/dL (3.5-5.0); Alkaline Phosphatase 229 U/L (38-126); Anion Gap 7 mmol/L; Blood Urea Nitrogen 14 mg/dL (7-17); Carbon Dioxide 25 mmol/L (22-30); Chloride 101 mmol/L (98-107); Creatine Kinase 34 U/L (30-135); Non-African American GFR(CKD) >90 (>60 ml/min/1.73 sqM); Potassium 4.8 mmol/L (3.5-5.1); Sodium 133 mmol/L (137-145); Total Bilirubin 0.4 mg/dL (0.2-1.3); Total Protein 6.9 g/dL (6.3-8.2)
[2019-11-15 10:58] LABS: Prothrombin Time 10.5 sec (9.0-12.0)
[2019-11-15 11:22] LABS: Glucose 500 mg/dL (74-99)
--- NOTE | 2019-11-15 11:35 | XR ---
EXAMINATION TYPE: XR chest 2V DATE OF EXAM: 11/15/2019 COMPARISON: 03/25/2019 TECHNIQUE: PA and lateral views submitted. HISTORY: Left-sided facial weakness FINDINGS: Heart is enlarged there is bilateral areas of pleural thickening and subsegmental consolidation. Biap ical pleural thickening. Mildly prominent interstitium. Hypertrophic and degenerative change of the s [place]. IMPRESSION: 1. Cardiomegaly with basilar infiltrate and tiny effusion or pleural thickening correlate clinically. 2. Prominent interstitium can be associated with chronic interstitial lung disease or interstitial pn eumonitis correlate clinically.
--- NOTE | 2019-11-15 12:10 | CT ---
EXAMINATION TYPE: CT angio head neck DATE OF EXAM: 11/15/2019 COMPARISON: CT brain from earlier in the day HISTORY: Neuro Deficit, acute, stroke suspected CT DLP: 639.5 mGycm CONTRAST: Performed without and with IV Contrast, patient injected with 65 ml mL of Isovue 370. Combination Contrast CTA cervical carotids and [place] CTA cervical carotids with 3-D recons truction Contrast CTA of the cervical carotids was performed 3-D reconstruction imaging obtained at a separate workstation. Right carotid system: Mild plaque is seen of the right common carotid artery. There is mild plaque a lso noted at the carotid bulb and proximal ICA. No significant diameter reduction. ECA is patent. Right vertebral artery appears unremarkable. Left carotid system: Mild plaque is seen of the left common carotid artery. There is mild plaque als o noted at the carotid bulb and proximal ICA. No significant diameter reduction. ECA is patent. Lef t vertebral artery appears unremarkable. IMPRESSION: 1. No significant diameter reduction to account for the patient's symptoms. CTA [place] with 3-D reconstruction Contrast CTA of the [place] was performed 3-D reconstruction imaging obtained at a separate workstation. Vertebrobasilar system as well as intracranial portions of the internal carotid arteries and their ma veronica tributaries are patent. I do not see evidence for sizable aneurysm or vascular malformation. Pl ease note MRI provides greater sensitivity and specificity. Visualized brain appears grossly unremar kable. IMPRESSION: 1. No significant abnormality.
[2019-11-15] MEDS ORDERED: ASPIRIN 325 MG TAB PO STA (12:49)
[2019-11-15] MEDS: SODIUM CHLORIDE 0.9% 1,000 ML IV SCH ×2 (13:22→20:34)
[2019-11-15] MEDS ORDERED: INSULIN ASPART (NovoLOG) 100 UNIT/ML VIAL SQ SCH (17:30)
[2019-11-15] MEDS ORDERED: ALPRAZolam 0.25 MG TAB PO PRN (19:23)
[2019-11-15 19:32] LABS: Glucose,Whole Blood 441 mg/dL (75-99)
--- NOTE | 2019-11-15 20:05 | HP ---
HISTORY AND PHYSICAL DATE OF SERVICE: 11/15/2019 CHIEF COMPLAINTS: Right-sided facial weakness and dribbling of fluids. HISTORY OF PRESENT ILLNESS: This 64-year-old woman with a past medical history of multiple medical problems, including history of asthma, history of COPD, diabetes mellitus, type 2, history of DJD, history of pneumonia, history of sleep apnea, history of section, hysterectomy, history of depression, being followed by Dr. Lyon in the outpatient setting, was noted to have some weakness of the right side of the face; patient unable to drink properly because of some leaking. Patient also had old left palsy on the left side, so the left eye was difficult to close. Because of new symptoms, the patient came to [facility] and was admitted for further evaluation and treatment. Acute stroke was suspected. Neurology evaluation is in progress. CT brain was also done. Neurology CT brain showed age-related atrophic changes and CT angio was also done which was personally reviewed by me. It showed no significant abnormality of stenosis. There is no history of any fever, rigor or chills. No history of headache, loss of consciousness, seizures. PAST MEDICAL HISTORY: History of asthma, COPD, history of diabetes mellitus, type 2, history of GERD, pneumonia, history of Scott's palsy, history of depression. HOME MEDICATIONS: 1. Glucophage 850 mg p.o. b.i.d. 2. Singulair 10 mg at bedtime. 3. Prozac 20 mg p.o. daily. 4. Farxiga 10 mg p.o. daily. ALLERGIES: NONE. FAMILY HISTORY: History of cancer; prostate and renal cancer. SOCIAL HISTORY: History of smoking. Occasional alcohol intake. REVIEW OF SYSTEMS: ENT: As mentioned earlier. CARDIOVASCULAR SYSTEM: No angina, palpitations. RESPIRATORY SYSTEM: As mentioned earlier. GI: No nausea, vomiting. : No dysuria or retention. NERVOUS SYSTEM: As mentioned earlier. ALLERGY/IMMUNOLOGY: No asthma, hayfever. MUSCULOSKELETAL: As mentioned earlier. HEMATOLOGY/ONCOLOGY: No history of anemia. ENDOCRINE: History of diabetes. CONSTITUTIONAL: As mentioned earlier. DERMATOLOGY: Negative. RHEUMATOLOGY: Negative. PSYCHIATRY: As mentioned earlier. PHYSICAL EXAMINATION: Patient alert and oriented x3. Pulse 64, blood pressure 135/83, respiration 14, temperature 97.5, pulse ox 93% on room air. HEENT: Conjunctivae normal. Oral mucosa moist. NECK: No jugular venous distention. No carotid bruit. No lymph node enlargement. CARDIOVASCULAR SYSTEM: S1, S2 muffled. No S3. No S4. RESPIRATORY SYSTEM: Breath sounds diminished at the bases. No rhonchi. No crackles. ABDOMEN: Soft, non-tender. No mass palpable. LEGS: No edema. No swelling. NERVOUS SYSTEM: Higher functions as mentioned earlier. Cranial nerves: possibly minimal weakness on the left side and right facial deviation suggestive of upper motor neuron facial palsy on the right side. The Scott's reflex is absent. Otherwise, moves all 4 limbs. Mild diffuse weakness. LYMPHATICS: No lymph node palpable in neck, axillae or groin. L SKIN: No ulcer, rash, bleeding. JOINTS: No active deforming arthropathy. LABS: WBC 7, hemoglobin 15.7, sodium 133. Glucose is 500. ASSESSMENT: 1. Right-sided facial weakness, possibly acute cerebrovascular accident and acute stroke involving the left hemisphere. 2. Diabetes mellitus, type 2, uncontrolled, with possible hyperosmolar state. 3. Hyponatremia. 4. Elevated alkaline phosphatase and AST. 5. Asthma and chronic obstructive pulmonary disease. 6. History of degenerative joint disease. 7. History of pneumonia. 8. History of obstructive sleep apnea, on CPAP. 9. History or uterine cancer and surgery. 10.History of glaucoma. 11.Macular degeneration. 12.History of section. 13.History of depression. RECOMMENDATIONS AND DISCUSSION: In this 64-year-old woman who presented with multiple complex medical issues, we will monitor the patient closely, continue the current medications, continue with symptomatic treatment. Antiplatelet agents. Neurology evaluation. Neuro checks. Complete neurovascular workup, including 2D echo with Doppler. MR of brain is ordered. Repeat labs. Prognosis guarded because of multiple complex medical issues. Further recommendations to follow. A copy of this dictation is being forwarded to Dr. Lyon, who is the primary physician. MMODL / IJN: [id number] / [facility] CENTERBenjamin
[2019-11-15] MEDS: MONTELUKAST 10 MG TAB PO SCH (20:24)
[2019-11-15] MEDS: HEPARIN SODIUM,PORCINE 5,000 UNIT/ML 1 ML VIAL SQ SCH (20:24)
[2019-11-15] MEDS: metFORMIN 850 MG TAB PO SCH (20:25)
[2019-11-15 20:26] LABS: Glucose,Whole Blood 431 mg/dL (75-99)
[2019-11-15] MEDS: INSULIN REGULAR 100 UNIT in SODIUM CHLORIDE 0.9% 100 ML IV SCH (20:26)
--- NOTE | 2019-11-15 22:19 | P.CNNES ---
History of Present Illness Consult date: 11/15/19 Reason for Consult: Scott's palsy Chief complaint: Acute onset of right facial weakness History of Present Illness: This is a 64-year-old obese poorly controlled diabetic insulin-dependent who reports this morning she got up at approximately 3 AM and noticed that the right side of her face felt numb when she went to the mirror she noticed that her right face was weak. She proceeded to the emergency room and has been admitted now for workup for Scott's palsy. On examination tonight this patient does have a lower motor neuron facial weakness without sparing of the for head. I am particular concern of the right eye it is quite proptotic. This patient has a known history for ophthalmologic old disorders with glaucoma and retinal detachments. The right eye is extremely proptotic and injected which has the appearance more of an acute glaucoma exacerbation versus a dysfunction seen in the eye with Scott's palsy. This evening I contacted the on-call hospitalist and discussed this case and concern for the ophthalmological issues involved. This patient reports that this morning when she got up at 3:00 that she felt this weakness of her face. She reports that she's had many years of insomnia so waking up at 3:00 the morning is not unusual. She had a bout of Scott's palsy 35 years ago that affected the left side of the face. She cannot recall if she had any treatment or if there was any corneal abrasions involved without I. Past Medical History Past Medical History: Asthma, Cancer, COPD, Diabetes Mellitus, Eye Disorder, Osteoarthritis (OA), Pneumonia, Sleep Apnea/CPAP/BIPAP Additional Past Medical History / Comment(s): NIDDM type II, past Scott's palsey affected L side of face/resolved, AMADA with Cpap, uterine cancer with surgery/rad iation, bilateral glaucoma and macular degeneration, UTIs, R carpal tunnel syndrome, current R foot plantar wart. History of Any Multi-Drug Resistant Organisms: None Reported Past Surgical History: Section, Hysterectomy, Joint Replacement Additional Past Surgical History / Comment(s): Total R knee arthroplasty, L e yelid blepharoplasty, bilateral eye surgeries for macular degeneration with L eye done twice, bilateral cataract removals. Additional Past Anesthesia/Blood Transfusion Reaction / Comment(s): Pt states she woke once and tried to pull out her ET tube. Smoking Status: Current every day smoker - Past Family History Father Family Medical History: Cancer Additional Family Medical History / Comment(s): Father had prostate and renal cancer. Mother Family Medical History: Diabetes Mellitus, Hypertension Medications and Allergies Home Medications Medication Instructions Recorded Confirmed Type Dapagliflozin Propanediol [Farxiga] 10 mg PO DAILY 04/01/19 11/15/19 History FLUoxetine HCL [PROzac] 20 mg PO DAILY 04/01/19 11/15/19 History Montelukast [Singulair] 10 mg PO HS 04/01/19 11/15/19 History metFORMIN HCL [Glucophage] 850 mg PO BID 04/01/19 11/15/19 History Allergies Allergy/AdvReac Type Severity Reaction Status Date / Time No Known Allergies Allergy Verified 11/15/19 11:23 Physical Examination - Vital Signs Vital Signs: Vital Signs Temp Pulse Pulse Resp BP BP Pulse Ox 11/15/19 20:03 98.3 F 67 20 174/72 92 L 11/15/19 17:44 64 14 11/15/19 17:43 97.5 F L 64 14 134/83 93 L 11/15/19 16:50 97.6 F 62 18 132/60 97 11/15/19 15:53 63 18 131/63 97 11/15/19 13:28 65 18 120/88 96 11/15/19 10:54 98.6 F 91 18 113/53 93 L 11/15/19 10:36 98.6 F 63 18 110/53 96 11/15/19 09:45 97.9 F 63 18 139/75 93 L Intake and Output 11/15/19 11/15/19 11/15/19 06:59 14:59 22:59 Intake Total 240.017 Balance 240.017 Intake: Intake, IV Titration 0.017 Amount Insulin Regular 100 unit 0.017 In Sodium Chloride 0.9% 100 ml @ Titrate IV .Q0M [facility] Rx#:[id number] Oral 240 Other: # Voids 1 Weight 105.687 kg 105.687 kg Gen. exam: Patient appears very tired and stressed. Next line HEENT injected sclera bilaterally. Significant proptotic noted of the right eye within tearing. Neck appears supple. Patient has overall cushingoid appearance. Pulses: Radial pedal pulses equal and symmetric. Neurologic exam Mental status awake alert oriented 3. Speech fluent. Pupils: 2 mm equally reactive to light and accommodation 3. Patient tracks well there is no nystagmus noted on vertical horizontal gaze. V1 through V3 sensory is intact on the left mildly decreased sensation in V2 V3 on the right. There is definite right facial weakness without sparing of the for head consistent with lower motor neuron lesion. Palate elevates symmetrically. Tongue is midline without fasciculations deviation. Coordination testing: Patient was not very cooperative with exam complaining of feeling very tired and lack of energy and strength to perform the examination. This will be deferred. Tomorrow morning. Motor examination: Again patient had give way weakness and poor effort. This will be reexamined in the morning. Overall patient is able to move all 4 extremities equally. There is no evidence of any hemiparesis present. Unable to assess pronator drift. Sensory exam: Grossly intact to light touch throughout. Deep tendon reflexes are trace throughout. Gait examination deferred Results - Laboratory Findings CBC and BMP: 11/15/19 10:15 11/15/19 10:18 Abnormal Lab Findings: Abnormal Labs 11/15/19 11/15/19 11/15/19 10:15 10:18 19:30 RBC 6.12 H Hct 50.6 H RDW 16.0 H Sodium 133 L Glucose 500 H POC Glucose (mg/dL) 441 H AST 44 H Alkaline Phosphatase 229 H 11/15/19 20:25 RBC Hct RDW Sodium Glucose POC Glucose (mg/dL) 431 H AST Alkaline Phosphatase Assessment and Plan Assessment: This is a 64-year-old obese female with poorly controlled insulin-dependent diabetes sleep apnea who presents with acute onset of right facial weakness along with concern for possible acute glaucoma exacerbation of the right eye. The facial weakness is centered on the right and it is a lower motor neuron lesion is unlikely this is a stroke. We're within the first 72 hours of her signs and symptoms and this patient may be having a good response on steroids and antiviral agent. I discussed this with the on-call hospitalist jenaro and we have agreed that she is on an insulin drip that we can monitor her sugars closely and start her on prednisone taper. She will start on prednisone 60 mg for 6 days followed by a 10 day taper. Valtrex 500 mg twice a day for 5 days. I would also recommend an MRI of her brain to have a better assessment of the orbits. I'm also recommending that ophthalmology be consulted if at all possible this evening the nocturnal skin evaluate this patient's I. Recommendations 1. Apply patch to eye with ophthalmic ointment. Eye should remain patched at all times over the next 72 hours to avoid corneal abrasion. Lubricant should be placed 3 times daily. 2. GI prophylaxis with Pepcid 40 mg. 3. Begin prednisone 60 mg for 5 days followed by taper over total 10 days. ([id number]) 4. A.m. labs: Lipid panel. Hemoglobin A1c. CBC with differential CMP. TSH free T4 total T3. 5. Ophthalmology consult as soon as possible. 6. Speech therapy evaluation. PT evaluation and OT evaluation. 7. Bedside swallow evaluation. Soft mechanical diet for now. 8. Aspiration precautions per nursing protocol. 9. Neuro checks every 4 hours while awake per nursing protocol. 10. Since patient does not have her CPAP this evening we'll recommend respiratory therapy to provide BiPAP to begin with an IPAP of 8 and EPAP for and titrate to comfort. This patient's prognosis remains guarded. Further recommendations will be made as this case evolves. Thank you for allowing me to dissipate in the care of your patient. Manuela Conteh MD Board Certified in Sleep medicine and Neurology
[2019-11-15] MEDS ORDERED: ARTIFICIAL TEARS OINTMENT 3.5 GM TUBE BOTH EYES PRN (22:20)
[2019-11-15 22:32] LABS: Glucose,Whole Blood 251 mg/dL (75-99)
[2019-11-15] MEDS: FAMOTIDINE 20 MG TAB PO SCH (22:40)
[2019-11-15] MEDS: predniSONE 20 MG TAB PO SCH (22:40)
[2019-11-15] MEDS: valACYclovir 500 MG TAB PO SCH (22:40)
[2019-11-15] MEDS: HYDROcodone/APAP 5-325MG 1 EACH TAB PO PRN (22:40)
[2019-11-15 23:36] LABS: T4, Free (Free Thyroxine) 0.92 ng/dL (0.78-2.19)
[2019-11-16 00:27] LABS: Glucose,Whole Blood 127 mg/dL (75-99)
[2019-11-16 01:30] LABS: Glucose,Whole Blood 170 mg/dL (75-99)
[2019-11-16 03:39] LABS: Glucose,Whole Blood 259 mg/dL (75-99)
[2019-11-16] MEDS: INSULIN REGULAR 100 UNIT in SODIUM CHLORIDE 0.9% 100 ML IV SCH ×2 (04:17→17:10)
[2019-11-16 05:36] LABS: Glucose,Whole Blood 212 mg/dL (75-99)
[2019-11-16] MEDS: SODIUM CHLORIDE 0.9% 1,000 ML IV SCH ×2 (05:39→17:13)
[2019-11-16 06:51] LABS: Anisocytosis Slight; Basophils % (A) 0 %; Eosinophils % (A) 1 %; HCT 49.7 % (34.0-46.0); HGB 15.1 gm/dL (11.4-16.0); Hypochromasia Slight; Lymphocytes # (A) 0.6 k/uL (1.0-4.8); Lymphocytes % (A) 9 %; MCH 25.1 pg (25.0-35.0); MCHC 30.4 g/dL (31.0-37.0); MCV 82.7 fL (80.0-100.0); Mean Platelet Volume 8.7; Monocytes # (A) 0.1 k/uL (0-1.0); Monocytes % (A) 1 %; Neutrophils # (A) 5.9 k/uL (1.3-7.7); Neutrophils % (A) 88 %; Platelet Count 207 k/uL (150-450); RBC 6.01 m/uL (3.80-5.40); WBC 6.7 k/uL (3.8-10.6)
[2019-11-16 07:21] LABS: African American GFR (CKD) >90 (>60 ml/min/1.73 sqM); Anion Gap 5 mmol/L; Blood Urea Nitrogen 15 mg/dL (7-17); Calcium 8.5 mg/dL (8.4-10.2); Carbon Dioxide 26 mmol/L (22-30); Chloride 104 mmol/L (98-107); Cholesterol 229 mg/dL (<200); Glucose 214 mg/dL (74-99); HDL Cholesterol 23 mg/dL (40-60); LDL Cholesterol,Calculated 144 mg/dL (0-99); Non-African American GFR(CKD) >90 (>60 ml/min/1.73 sqM); Sodium 135 mmol/L (137-145); Triglycerides 312 mg/dL (<150)
[2019-11-16 07:41] LABS: Glucose,Whole Blood 230 mg/dL (75-99)
[2019-11-16 09:34] LABS: Glucose,Whole Blood 308 mg/dL (75-99)
[2019-11-16] MEDS: predniSONE 20 MG TAB PO SCH (10:35)
[2019-11-16] MEDS: FAMOTIDINE 20 MG TAB PO SCH ×2 (10:35→21:49)
[2019-11-16] MEDS: metFORMIN 850 MG TAB PO SCH ×2 (10:35→21:50)
[2019-11-16] MEDS: FLUoxetine HCL 20 MG CAP PO SCH (10:35)
[2019-11-16] MEDS: valACYclovir 500 MG TAB PO SCH ×2 (10:35→21:50)
[2019-11-16] MEDS: HEPARIN SODIUM,PORCINE 5,000 UNIT/ML 1 ML VIAL SQ SCH ×2 (10:35→21:49)
[2019-11-16 11:30] LABS: Glucose,Whole Blood 296 mg/dL (75-99)
[2019-11-16] MEDS ORDERED: IPRATROPIUM-ALBUTEROL 3 ML NEB INHALATION SCH (12:00)
[2019-11-16 12:01] LABS: Folate, Serum 9.8 ng/mL
[2019-11-16] MEDS: NON FORMULARY DRUG (Dapagliflozin Propanediol [Farxiga] 10 MG) PO SCH (12:38)
[2019-11-16 12:54] LABS: Hemoglobin A1C 13.3 % (4.0-6.0)
[2019-11-16 13:21] LABS: Glucose,Whole Blood 368 mg/dL (75-99)
[2019-11-16] MEDS: ASPIRIN 325 MG TAB PO SCH (14:54)
--- NOTE | 2019-11-16 15:12 | P.PN ---
Subjective Progress Note Date: 11/16/19 Principal diagnosis: Scott's palsy Possible glaucoma exacerbation Patient has remained hemodynamically stable overnight and continues on insulin drip. Glucose at the time of this evaluation was now down to 300. Patient reports that overall she feels much better she has noticed some improvement in her face with there is less numbness and weakness. The eyepatch with ointment h as helped dry reports. Patient is scheduled to undergo MRI shortly. Patient has no new complaints. Objective - Vital Signs Vital signs: Vital Signs Temp 97.9 F 11/16/19 08:00 Pulse 72 11/16/19 08:00 Resp 20 11/16/19 08:00 BP 138/56 11/16/19 08:00 Pulse Ox 92 L 11/16/19 08:00 Intake & Output 11/15/19 11/16/19 11/16/19 18:59 06:59 18:59 Intake Total 240 77.223 526.492 Balance 240 77.223 526.492 Weight 105.687 kg 106 kg Intake: Intake, IV Titration 77.223 50.492 Amount Insulin Regular 100 unit 77.223 50.492 In Sodium Chloride 0.9% 100 ml @ Titrate IV .Q0M [facility] Rx#:[id number] Oral 240 476 Other: Voiding Method Toilet Toilet # Voids 1 - Exam Patient examined chart reviewed. Abnormal lipid panel noted. Examination: Mental status: Patient awake alert oriented. Speech fluent. Patient follows commands well. HEENT: Right eye remains proptotic but slightly less swollen than last night. There is mildly injected. Neck remained supple. No cervical lymphadenopathy noted. Cranial nerves: Patient is able to track well. No nystagmus noted on vertical horizontal gaze. Persistent left facial weakness. Palate elevates symmetrically. Shoulder shrug to symmetric. Motor examination: Moves all 4 extremities equally. Strength appears 5 out of 5 throughout. No tremors noted. Sensory: Formal examination deferred extremities but patient does have still mildly decreased sensation on the left upper and lower face. Coordination and deep tendon reflexes deferred. Extremities: No edema noted in the hands or feet. Next Skin: No rash petechia or hemorrhage noted. - Labs CBC & Chem 7: 11/16/19 06:04 11/16/19 06:04 Labs: Abnormal Lab Results - Last 24 Hours (Table) 06/11/15/19 11/15/19 Range/Units 19:30 20:25 22:26 RBC (3.80-5.40) m/uL Hct (34.0-46.0) % MCHC (31.0-37.0) g/dL RDW (11.5-15.5) % Lymphocytes # (1.0-4.8) k/uL Sodium (137-145) mmol/L Glucose (74-99) mg/dL POC Glucose (mg/dL) 441 H 431 H (75-99) mg/dL Hemoglobin A1c (4.0-6.0) % Triglycerides (<150) mg/dL Cholesterol (<200) mg/dL LDL Cholesterol, Calc (0-99) mg/dL HDL Cholesterol (40-60) mg/dL TSH 4.780 H (0.465-4.680) mIU/L 11/15/19 11/16/19 11/16/19 Range/Units 22:30 00:25 01:28 RBC (3.80-5.40) m/uL Hct (34.0-46.0) % MCHC (31.0-37.0) g/dL RDW (11.5-15.5) % Lymphocytes # (1.0-4.8) k/uL Sodium (137-145) mmol/L Glucose (74-99) mg/dL POC Glucose (mg/dL) 251 H 127 H 170 H (75-99) mg/dL Hemoglobin A1c (4.0-6.0) % Triglycerides (<150) mg/dL Cholesterol (<200) mg/dL LDL Cholesterol, Calc (0-99) mg/dL HDL Cholesterol (40-60) mg/dL TSH (0.465-4.680) mIU/L 11/16/19 11/16/19 11/16/19 Range/Units 03:38 05:33 06:04 RBC (3.80-5.40) m/uL Hct (34.0-46.0) % MCHC (31.0-37.0) g/dL RDW (11.5-15.5) % Lymphocytes # (1.0-4.8) k/uL Sodium (137-145) mmol/L Glucose (74-99) mg/dL POC Glucose (mg/dL) 259 H 212 H (75-99) mg/dL Hemoglobin A1c 13.3 H (4.0-6.0) % Triglycerides (<150) mg/dL Cholesterol (<200) mg/dL LDL Cholesterol, Calc (0-99) mg/dL HDL Cholesterol (40-60) mg/dL TSH (0.465-4.680) mIU/L 11/16/19 11/16/19 11/16/19 Range/Units 06:04 06:04 07:29 RBC 6.01 H (3.80-5.40) m/uL Hct 49.7 H (34.0-46.0) % MCHC 30.4 L (31.0-37.0) g/dL RDW 16.0 H (11.5-15.5) % Lymphocytes # 0.6 L (1.0-4.8) k/uL Sodium 135 L (137-145) mmol/L Glucose 214 H (74-99) mg/dL POC Glucose (mg/dL) 230 H (75-99) mg/dL Hemoglobin A1c (4.0-6.0) % Triglycerides 312 H (<150) mg/dL Cholesterol 229 H (<200) mg/dL LDL Cholesterol, Calc 144 H (0-99) mg/dL HDL Cholesterol 23 L (40-60) mg/dL TSH (0.465-4.680) mIU/L 11/16/19 11/16/19 11/16/19 Range/Units 09:33 11:28 13:19 RBC (3.80-5.40) m/uL Hct (34.0-46.0) % MCHC (31.0-37.0) g/dL RDW (11.5-15.5) % Lymphocytes # (1.0-4.8) k/uL Sodium (137-145) mmol/L Glucose (74-99) mg/dL POC Glucose (mg/dL) 308 H 296 H 368 H (75-99) mg/dL Hemoglobin A1c (4.0-6.0) % Triglycerides (<150) mg/dL Cholesterol (<200) mg/dL LDL Cholesterol, Calc (0-99) mg/dL HDL Cholesterol (40-60) mg/dL TSH (0.465-4.680) mIU/L Assessment and Plan Assessment: This is a 64-year-old obese female with poorly controlled insulin-dependent diabetes sleep apnea who presents with acute onset of right facial weakness along with concern for possible acute glaucoma exacerbation of the right eye. The facial weakness is centered on the left and it is a lower motor neuron lesion is unlikely this is a stroke. A she is currently now on prednisone taper with Valtrex 500 twice a day and appears to have a good response to this. She reports no ill side effects from these medications at this time. Patient is also having protected eye patch to prevent corneal abrasion on the right eye. MRI is scheduled this afternoon. Insulin drip has now lowered her glucose down into the 300s range which is down to 500 range last night. We are still awaiting for ophthalmology to evaluate her for possible exacerbation of glaucoma which is unknown disorder she has in both eyes bilaterally. Patient does report some diminished vision in the right eye. Recommendations 1. Continue with patch to eye with ophthalmic ointment. Eye should remain patched at all times over the next 72 hours to avoid corneal abrasion. Lubricant should be placed 3 times daily. 2. Continue with GI prophylaxis with Pepcid 40 mg. 3. Continue with prednisone 60 mg for 5 days followed by taper over total 10 days. ([id number]) 4. Completed: A.m. labs: Lipid panel. Hemoglobin A1c. CBC with differential CMP. TSH free T4 total T3. 5. Ophthalmology consult as soon as possible. 6. Speech therapy evaluation. PT evaluation and OT evaluation. 7. Continue with Soft mechanical diet for now. 8. Aspiration precautions per nursing protocol. 9. Neuro checks every 4 hours while awake per nursing protocol. 10. Continue with BiPAP at night since patient does not have available her CPAP device. 11. Abnormal lipid panel with elevated cholesterol LDL. Start atorvastatin this evening 40 mg. This patient's prognosis remains guarded. Further recommendations will be made as this case evolves. Thank you for allowing me to dissipate in the care of your patient. Manuela Conteh MD Board Certified in Sleep medicine and Neurology
[2019-11-16] MEDS: IPRATROPIUM-ALBUTEROL 3 ML NEB INHALATION SCH ×3 (15:18→20:50)
--- NOTE | 2019-11-16 16:01 | MR ---
EXAMINATION TYPE: MR brain wo con DATE OF EXAM: 11/16/2019 COMPARISON: None HISTORY: Rt sided facial facial weakness CONTRAST: Performed utilizing 0 mL intravenous Gadavist gadolinium contrast. TECHNIQUE: Multiplanar, multiecho imaging on a 3.0 Miriam magnet is performed through the brain. Stud y is performed within 24 hours of arrival to the hospital. Motion artifact is present causing limitat ion during this exam The craniovertebral junction is normal. The pituitary is normal. Diffusion-weighted imaging is performed. No abnormal hyperintensity is present to suggest an acute i ntracranial infarct or acute ischemic change. Mild periventricular white matter hyperintensity is present which can be compatible with microvascula r ischemic change. Ventricles and sulci are appropriate for the patient age. Temporal lobes are symmetrical. IMPRESSIONS: 1. Chronic appearing periventricular white matter ischemic type changes. 2. No acute intracranial changes evident.
[2019-11-16 16:06] LABS: Glucose,Whole Blood 334 mg/dL (75-99)
[2019-11-16 18:23] LABS: Glucose,Whole Blood 345 mg/dL (75-99)
[2019-11-16] MEDS ORDERED: ARTIFICIAL TEARS-HYPROMELLOSE DROPS 15 ML BTL BOTH EYES PRN (19:31)
[2019-11-16 20:08] LABS: Glucose,Whole Blood 318 mg/dL (75-99)
--- NOTE | 2019-11-16 20:13 | PN ---
PROGRESS NOTE DATE OF SERVICE: 11/16/2019 This 64-year-old woman who was admitted with right-sided facial weakness and drooping of fluid is being closely monitored. The possibility of either Scott's palsy or stroke is being considered. Brain MRI was done today which showed chronic-appearing periventricular white matter changes and no acute intraventricular effects. Angiography was negative yesterday. The patient has also been evaluated for glaucoma exacerbation. Ophthalmology has been consulted. Past medical history reviewed. REVIEW OF SYSTEMS: CARDIOVASCULAR SYSTEM: No angina, palpitations. RESPIRATORY SYSTEM: As mentioned earlier. GI: As mentioned earlier. : No dysuria or retention. NERVOUS SYSTEM: As mentioned earlier. CURRENT MEDICATIONS: Reviewed. They include: 1. [place] 5 mg q.6 p.r.n. 2. DuoNeb q.i.d. and p.r.n. 3. Xanax 0.25 t.i.d. 4. Aspirin. 5. Lipitor. 6. Pepcid. 7. Prozac. 8. Heparin. 9. Glucophage. 10.Singulair. 11.Multivitamins. 12.Prednisone. 13.Valtrex. PHYSICAL EXAMINATION: Patient is alert and oriented x3. Pulse 72, blood pressure 130/56, respiration 20, temperature 97.9, pulse ox 92% on room air. HEENT: Conjunctivae normal. Oral mucosa moist. NECK: No jugular venous distention. No carotid bruit. No lymph node enlargement. CARDIOVASCULAR SYSTEM: S1, S2 muffled. No S3. No S4. RESPIRATORY SYSTEM: Breath sounds diminished at the bases. No rhonchi. No crackles. ABDOMEN: Soft, obese, non-tender. LEGS: No edema. No swelling. NERVOUS SYSTEM: Significant weakness on the right, possible upper motor neuron facial palsy. No other focal deficit. LYMPHATICS: No lymph node palpable in neck, axillae or groin. LABS: Accu-Cheks 368, 334. ASSESSMENT: 1. Right-sided facial weakness; possible acute cerebrovascular accident and acute stroke involving the left hemisphere. 2. Diabetes mellitus, type 2, uncontrolled, with hyperosmolar state, nonketotic state. 3. Hyponatremia. 4. Rule out glaucoma. 5. Elevated alkaline phosphatase and AST. 6. History of asthma, chronic obstructive pulmonary disease. 7. History of degenerative joint disease. 8. History of pneumonia. 9. History of obstructive sleep apnea, on CPAP. 10.History of uterine cancer and surgery. 11.History of glaucoma. 12.Macular degeneration. 13.History of section. 14.History of depression. 15.Hyperlipidemia. 16.Hypercholesterolemia. RECOMMENDATIONS AND DISCUSSION: In this 64-year-old woman who presented with multiple complex medical issues, at this time I recommend to continue the current medications, continue with symptomatic treatment. Continue the antiplatelet agents. Ophthalmology evaluation. Neurology consultation. Continue with insulin drip, currently running at 11 units/hour. The patient was also started on prednisone. Will continue to monitor. Guarded prognosis. Further recommendations to follow. The patient is also on Lipitor. A 2D echo with Doppler also will be ordered. MMODL / IJN: [id number] /
[2019-11-16] MEDS: ATORVASTATIN 40 MG TAB PO SCH (21:49)
[2019-11-16] MEDS: MONTELUKAST 10 MG TAB PO SCH (21:50)
[2019-11-16 21:58] LABS: Glucose,Whole Blood 276 mg/dL (75-99)
[2019-11-16] MEDS: HYDROcodone/APAP 5-325MG 1 EACH TAB PO PRN (23:54)
[2019-11-17 00:04] LABS: Glucose,Whole Blood 280 mg/dL (75-99)
[2019-11-17 02:05] LABS: Glucose,Whole Blood 233 mg/dL (75-99)
[2019-11-17] MEDS: INSULIN REGULAR 100 UNIT in SODIUM CHLORIDE 0.9% 100 ML IV SCH (02:16)
[2019-11-17 03:59] LABS: Glucose,Whole Blood 218 mg/dL (75-99)
[2019-11-17] MEDS: SODIUM CHLORIDE 0.9% 1,000 ML IV SCH ×2 (06:06→18:36)
[2019-11-17 06:09] LABS: Glucose,Whole Blood 187 mg/dL (75-99)
[2019-11-17 07:26] LABS: Anisocytosis Slight; Basophils # (A) 0.1 k/uL (0-0.2); Basophils % (A) 1 %; Eosinophils # (A) 0.1 k/uL (0-0.7); Eosinophils % (A) 1 %; HCT 49.3 % (34.0-46.0); HGB 14.9 gm/dL (11.4-16.0); Hypochromasia Moderate; Lymphocytes # (A) 1.1 k/uL (1.0-4.8); Lymphocytes % (A) 9 %; MCH 25.4 pg (25.0-35.0); MCHC 30.2 g/dL (31.0-37.0); MCV 84.1 fL (80.0-100.0); Mean Platelet Volume 8.6; Monocytes # (A) 0.6 k/uL (0-1.0); Monocytes % (A) 5 %; Neutrophils # (A) 9.3 k/uL (1.3-7.7); Neutrophils % (A) 83 %; Platelet Count 222 k/uL (150-450); RBC 5.86 m/uL (3.80-5.40); RDW 16.1 % (11.5-15.5); WBC 11.2 k/uL (3.8-10.6)
[2019-11-17 08:01] LABS: African American GFR (CKD) >90 (>60 ml/min/1.73 sqM); Anion Gap 7 mmol/L; Blood Urea Nitrogen 13 mg/dL (7-17); Calcium 8.4 mg/dL (8.4-10.2); Carbon Dioxide 23 mmol/L (22-30); Chloride 107 mmol/L (98-107); Glucose 177 mg/dL (74-99); Non-African American GFR(CKD) >90 (>60 ml/min/1.73 sqM); Sodium 137 mmol/L (137-145)
[2019-11-17 08:07] LABS: Glucose,Whole Blood 166 mg/dL (75-99)
[2019-11-17 08:25] LABS: Potassium 4.4 mmol/L (3.5-5.1)
[2019-11-17] MEDS: valACYclovir 500 MG TAB PO SCH ×2 (08:58→20:50)
[2019-11-17] MEDS: FLUoxetine HCL 20 MG CAP PO SCH (08:58)
[2019-11-17] MEDS: metFORMIN 850 MG TAB PO SCH ×2 (08:59→20:50)
[2019-11-17] MEDS: FAMOTIDINE 20 MG TAB PO SCH ×2 (08:59→20:49)
[2019-11-17] MEDS: predniSONE 20 MG TAB PO SCH (08:59)
[2019-11-17] MEDS: HEPARIN SODIUM,PORCINE 5,000 UNIT/ML 1 ML VIAL SQ SCH ×2 (08:59→20:50)
[2019-11-17] MEDS: ASPIRIN 325 MG TAB PO SCH (09:00)
[2019-11-17] MEDS: IPRATROPIUM-ALBUTEROL 3 ML NEB INHALATION SCH ×4 (09:14→19:37)
[2019-11-17 10:08] LABS: Glucose,Whole Blood 192 mg/dL (75-99)
[2019-11-17] MEDS: NON FORMULARY DRUG (Dapagliflozin Propanediol [Farxiga] 10 MG) PO SCH (10:47)
--- NOTE | 2019-11-17 10:58 | ECHOF ---
Referral Reason:Stroke MEASUREMENTS -------- HEIGHT: 147.3 cm WEIGHT: 108.0 kg BP: 138/61 RVIDd: 2.4 cm (< 3.3) IVSd: 1.3 cm (0.6 - 1.1) LVIDd: 4.5 cm (3.9 - 5.3) LVPWd: 1.3 cm (0.6 - 1.1) IVSs: 1.8 cm LVIDs: 2.3 cm LVPWs: 1.8 cm Ao Diam: 2.4 cm (2.0 - 3.7) AV Cusp: 1.6 cm (1.5 - 2.6) LA Diam: 3.0 cm (2.7 - 3.8) MV E Tyrone: 0.43 m/s MV DecT: 252 ms MV A Tyrone: 0.68 m/s MV E/A Ratio: 0.64 FINDINGS -------- Sinus rhythm. This was a technically difficult study with suboptimal views. The left ventricular size is normal. There is mild concentric left ventricular hypertrophy. Overa ll left ventricular systolic function is normal with, an EF between 55 - 60 %. The right ventricle is normal in size. The left atrial size is normal. The right atrial size is normal. Lumason used The aortic valve was not well visualized. The mitral valve was not well visualized. The tricuspid valve was not well visualized. The pulmonic valve was not well visualized. The aortic root size is normal. IVC Not well visulized. CONCLUSIONS -------- 1. Sinus rhythm. 2. This was a technically difficult study with suboptimal views. 3. The left ventricular size is normal. 4. There is mild concentric left ventricular hypertrophy. 5. Overall left ventricular systolic function is normal with, an EF between 55 - 60 %. 6. The right ventricle is normal in size. 7. The left atrial size is normal. 8. The right atrial size is normal. 9. Lumason used 10. The aortic valve was not well visualized. 11. The mitral valve was not well visualized. 12. The tricuspid valve was not well visualized. 13. The pulmonic valve was not well visualized. 14. The aortic root size is normal. 15. IVC Not well visulized. EYELET RIVETER: Jessi Real RD
[2019-11-17 11:44] VITALS: BMI 53.4
[2019-11-17 12:01] LABS: Glucose,Whole Blood 222 mg/dL (75-99)
[2019-11-17 14:20] LABS: Glucose,Whole Blood 290 mg/dL (75-99)
[2019-11-17] MEDS ORDERED: INSULIN DETEMIR (LEVEMIR) 100 UNIT/ML SYR SQ ONE (15:15)
[2019-11-17 17:04] LABS: Glucose,Whole Blood 321 mg/dL (75-99)
--- NOTE | 2019-11-17 17:58 | PN ---
PROGRESS NOTE DATE OF SERVICE: 11/17/2019 This 64-year-old woman who was admitted with Scott's palsy and suspected stroke is on steroids. The patient is also on insulin drip; used about 109 units in the past 24 hours, according to the staff. The patient is being closely monitored. MRI did not show an acute abnormality. Two-D echo with Doppler was done by Cardiology which showed ejection fraction about 50% to 60%. Other are not well visualized. No chest pain. No palpitations. Past medical history reviewed. REVIEW OF SYSTEMS: CARDIOVASCULAR SYSTEM: No angina, palpitations. RESPIRATORY SYSTEM: As mentioned earlier. GI: As mentioned earlier. ENDOCRINE: As mentioned earlier. CURRENT MEDICATIONS: Reviewed. They include: 1. Blanding 5 mg. 2. DuoNeb. 3. Xanax. 4. Artificial Tears. 5. Aspirin. 6. Lipitor. 7. Pepcid. 8. Prozac. 9. Heparin. 10.Insulin. 11.Singulair. 12.Farxiga. 13.Prednisone. 14.Valtrex. PHYSICAL EXAMINATION: Patient alert and oriented x3. Pulse 76, blood pressure 138/61, respiration 20, temperature 97.6, pulse ox 94% on room air. HEENT: Conjunctivae normal. NECK: No jugular venous distention. CARDIOVASCULAR SYSTEM: S1, S2 muffled. RESPIRATORY SYSTEM: Breath sounds diminished at the bases. No rhonchi. No crackles. ABDOMEN: Soft, non-tender. LEGS: No edema. No swelling. NERVOUS SYSTEM: Significant weakness of the right side of the face. Possibly facial palsy present. LABS: WBC 11.2, hemoglobin 14.9. Accu-Cheks noted; 166, 192, 222, 290. ASSESSMENT: 1. Right-sided facial weakness, possibly facial palsy. Stroke seems to be unlikely. 2. Diabetes mellitus, type 2, uncontrolled, with hyperosmolar state, nonketotic. 3. Hyponatremia. 4. Elevated alkaline phosphatase, AST. 5. History of asthma, chronic obstructive pulmonary disease. 6. History of degenerative joint disease. 7. Pneumonia. 8. History of sleep apnea, on CPAP. 9. History of uterine cancer and surgery. 10.History of glaucoma. 11.History of macular degeneration. 12.History of section. 13.History of depression. 14.Hyperlipidemia. 15.Hypercholesterolemia. RECOMMENDATIONS AND DISCUSSION: I recommend to continue current medications, continue with the monitoring, symptomatic treatment. Otherwise at this time I recommend stopping the insulin drip, 20 units Lantus now and then Lantus 40 units subcutaneously b.i.d. and Accu-Cheks before meals and at bedtime. Diabetic education. Discussed with staff and discussed with the patient. Guarded prognosis. Await ophthalmology evaluation. Further recommendations to follow. CHITO / YAMILETN: [id number] / [email or web address]
[2019-11-17 18:27] LABS: Glucose,Whole Blood 346 mg/dL (75-99)
[2019-11-17] MEDS: INSULIN ASPART (NovoLOG) 100 UNIT/ML VIAL SQ SCH ×2 (18:35→20:50)
[2019-11-17 20:05] LABS: Glucose,Whole Blood 335 mg/dL (75-99)
[2019-11-17] MEDS: MONTELUKAST 10 MG TAB PO SCH (20:49)
[2019-11-17] MEDS: ATORVASTATIN 40 MG TAB PO SCH (20:50)
[2019-11-17] MEDS: INSULIN DETEMIR (LEVEMIR) 100 UNIT/ML SYR SQ SCH (20:50)
[2019-11-17 21:59] LABS: Glucose,Whole Blood 354 mg/dL (75-99)
--- NOTE | 2019-11-18 00:22 | CONS ---
CONSULTATION OPHTHALMOLOGY CONSULTATION: DATE OF SERVICE: 11/16/2019. CHIEF COMPLAINT: Right-sided weakness. HISTORY OF PRESENT ILLNESS: Ms. Pollard is a 64-year-old woman with multiple comorbidities who presented with presumed Scott's palsy on the right side. She noted weakness and a strange feeling on both sides of her face several days ago. She notes that her vision is at baseline blurry. The blurry vision has been consistent for several years. This has not recently changed. There is no associated pain, flashes, or floaters. REVIEW OF SYSTEMS: The patient notes occasional shortness of breath and difficulty with drinking fluids. Otherwise, the review of systems is negative. PAST MEDICAL HISTORY: Asthma, COPD, diabetes mellitus type 2, GERD, pneumonia, depression. HOME MEDICATIONS: Glucophage, Singulair, Prozac, Farxiga. ALLERGIES: No known drug allergies. FAMILY HISTORY: History of cancer of the prostate. SOCIAL HISTORY: Positive for tobacco use. Occasional alcohol use. OPHTHALMIC HISTORY: Patient reports previous cataract surgery and retinal surgery. OPHTHALMIC EXAM: Visual acuity is 2100 in the right eye and 2100 in the left eye at near with correction. The pupils are equal, round, reactive to light accommodation. There is no afferent pupillary defect. Extraocular movements are full. The cornea is clear. The lids in the right eye show lower lid retraction consistent with 7th nerve or Scott's palsy. Fortunately, there is a good Scott's phenomenon which provides for good coverage of the cornea upon blinking. There is a 1 mm lagophthalmos in the right eye. There is a posterior chamber intraocular lens in both eyes. Evaluation of the retina is limited. However, microaneurysms are noted in both retina. ASSESSMENT AND PLAN: 1. 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 The patient has a small amount of lagophthalmos with a right lower lid retraction all associated with Scott's palsy. There is no significant proptosis. The treatment for the exposure related to Scott's palsy is lubricating artificial tear drops 3 times daily and lubricating ophthalmic ointment 3 times daily all to the right eye. Fortunately for the patient, she has a positive Scott's phenomenon which is protective of the cornea. When she attempts to blink, her cornea is well covered by the upper lid. 2. Diabetic retinopathy, associated with type 2 diabetes. The patient appears to have diabetic retinopathy on exam. However, further examination in the office is necessary. The patient does report history of possible retinal or macular hole. However, this cannot be evaluated at the bedside. She will need further evaluation in the office as an outpatient to further manage her retinal issues. 3. Primary open-angle glaucoma, both eyes. The patient reports history of primary open-angle glaucoma. The patient reports she has not been using her drops correctly. I recommend starting latanoprost ophthalmic drops 1 drop in both eyes at bedtime for the time being until outpatient evaluation of her glaucoma can be completed. Thank you for allowing me to participate in this patient's care. I would like to see the patient as an outpatient after discharge within 1 week at my office. MMODL / IJN: [id number] /
[2019-11-18] MEDS: SODIUM CHLORIDE 0.9% 1,000 ML IV SCH ×2 (04:38→07:02)
[2019-11-18 06:05] LABS: Glucose,Whole Blood 262 mg/dL (75-99)
[2019-11-18] MEDS: INSULIN ASPART (NovoLOG) 100 UNIT/ML VIAL SQ SCH ×2 (07:00→13:12)
[2019-11-18] MEDS: INSULIN DETEMIR (LEVEMIR) 100 UNIT/ML SYR SQ SCH (07:05)
[2019-11-18 07:15] LABS: Glucose,Whole Blood 270 mg/dL (75-99)
[2019-11-18 07:38] LABS: Anisocytosis Slight; Basophils % (A) 0 %; Eosinophils % (A) 0 %; HCT 46.7 % (34.0-46.0); HGB 14.2 gm/dL (11.4-16.0); Hypochromasia Moderate; Lymphocytes # (A) 0.8 k/uL (1.0-4.8); Lymphocytes % (A) 9 %; MCH 25.4 pg (25.0-35.0); MCHC 30.4 g/dL (31.0-37.0); MCV 83.7 fL (80.0-100.0); Mean Platelet Volume 8.6; Monocytes # (A) 0.5 k/uL (0-1.0); Monocytes % (A) 5 %; Neutrophils # (A) 7.8 k/uL (1.3-7.7); Neutrophils % (A) 84 %; Platelet Count 216 k/uL (150-450); RBC 5.59 m/uL (3.80-5.40); RDW 16.3 % (11.5-15.5); WBC 9.3 k/uL (3.8-10.6)
[2019-11-18 07:46] LABS: African American GFR (CKD) >90 (>60 ml/min/1.73 sqM); Anion Gap 6 mmol/L; Blood Urea Nitrogen 16 mg/dL (7-17); Calcium 8.7 mg/dL (8.4-10.2); Carbon Dioxide 25 mmol/L (22-30); Chloride 106 mmol/L (98-107); Glucose 257 mg/dL (74-99); Non-African American GFR(CKD) >90 (>60 ml/min/1.73 sqM); Potassium 5.2 mmol/L (3.5-5.1); Sodium 137 mmol/L (137-145)
[2019-11-18] MEDS: IPRATROPIUM-ALBUTEROL 3 ML NEB INHALATION SCH ×3 (07:52→16:32)
[2019-11-18] MEDS: FLUoxetine HCL 20 MG CAP PO SCH (08:35)
[2019-11-18] MEDS: FAMOTIDINE 20 MG TAB PO SCH (08:35)
[2019-11-18] MEDS: ASPIRIN 325 MG TAB PO SCH (08:35)
[2019-11-18] MEDS: predniSONE 20 MG TAB PO SCH (08:36)
[2019-11-18] MEDS: valACYclovir 500 MG TAB PO SCH (08:36)
[2019-11-18] MEDS: HEPARIN SODIUM,PORCINE 5,000 UNIT/ML 1 ML VIAL SQ SCH (08:36)
[2019-11-18] MEDS: metFORMIN 850 MG TAB PO SCH (08:37)
[2019-11-18] MEDS: NON FORMULARY DRUG (Dapagliflozin Propanediol [Farxiga] 10 MG) PO SCH (08:42)
[2019-11-18 11:07] VITALS: RESP 20
[2019-11-18 11:36] LABS: Glucose,Whole Blood 263 mg/dL (75-99)
[2019-11-18 15:57] VITALS: BP 155/67; PULSE 74; TEMP 97.9
--- NOTE | 2019-11-19 08:22 | P.DS ---
Providers Date of admission: 11/15/19 12:49 Expected date of discharge: 11/18/19 Attending physician: Gladis Mtz Consults: 11/15/19 12:50 Consult Physician Routine Consulting Provider: Manuela Conteh Consult Reason/Comments: CVA versus Scott's palsy Do you want consulting provider notified?: Yes 11/15/19 22:10 Consult Physician Routine Consulting Provider: Albert Junior Consult Reason/Comments: Glaucoma exacerbation Do you want consulting provider notified?: Yes, Notify in am Primary care physician: Zachariah Lyon Hospital Course: Final diagnosis Right sided facial weakness, possibly facial palsy, Stroke seems to be unlikely Diabetes mellitus, type 2, uncontrolled, with hyperosmolar state, non-ketotic Hyponatremia Elevated alk phosphatase, AST History of asthma, COPD History of DJD Pneumonia History of sleep apnea, on CPAP History of uterine cancer and surgery History of glaucoma History of macular degeneration History of section History of depression Hyperlipidemia Hypercholesterolemia Discharge disposition Patient is being discharged in a stable condition with guarded prognosis to home. Patient will follow-up with Dr. Lyon upon discharge. Patient will also follow up with opthalmology Dr. Junior in the outpatient setting. Patient will continue on a prednisone taper along with Valtrex upon discharge. Total time taken is greater than 35 minutes. History of present illness This is a 64-year-old female who was recently admitted with Scott's Palsy and suspected stroke and was being closely monitored. Patient was placed on steroids and Valtrex and is showing improvement. Patient was also found to have uncontrolled blood sugars with hyperglycemia and was initiated on an insulin drip for tight glycemic control. Patient will be continuing with Basaglar 40 units at bed and instructed to keep a diary of blood sugar readings before each meal and at bed and bring with to follow up appointment with Dr. Lyon. Patient also instructed to follow up with Dr. Junior opthalmology in 1-2 weeks. Patient was evaluated by neurology and underwent an MRI of the brain showing no acute abnormalities. Patient also underwent an echo showing LV function normal with an EF of 55-60%. Currently no reports of chest pain, palpitations, or shortness. Patient is afebrile. No reports of nausea or vomiting and patient is tolerating diet. Patient also instructed to keep the right eye lubricated and taped while drooping to avoid corneal abrasions. On exam vital signs are stable. Temp is 97.9F, pulse is 74, respirations are 20, blood pressure 155/67, oxygen saturation is 94% on room air. Cardio S1, S2 are present. Respiratory shows diminished breath sounds bilaterally with no wheezing or rhonchi. Abdomen is soft and non-tender. Nervous system shows no focal deficits. Please refer to medication reconciliation sheet for a list of medications. Patient Condition at Discharge: Fair Plan - Discharge Summary Discharge Rx Participant: No New Discharge Prescriptions: New Artificial Tears-Hypromellose [Artificial Tear Drops] 2 drops BOTH EYES QID PRN #1 bottle PRN Reason: Dry Eye(S) Aspirin 325 mg PO DAILY 30 Days #30 tab Insulin Glargine,Hum.rec.anlog [Basaglar Kwikpen U-100] 40 unit SQ HS 30 Days #2 pen Ipratropium-Albuterol Nebulize [Duoneb 0.5 mg-3 mg/3 ml Soln] 3 ml INHALATION RT-QID 30 Days #90 ml Atorvastatin [Lipitor] 40 mg PO HS 30 Days #30 tab predniSONE 10 mg PO DIRECTED #21 tab valACYclovir [Valtrex] 500 mg PO BID #30 tab Continue FLUoxetine HCL [PROzac] 20 mg PO DAILY Dapagliflozin Propanediol [Farxiga] 10 mg PO DAILY metFORMIN HCL [Glucophage] 850 mg PO BID Montelukast [Singulair] 10 mg PO HS Discharge Medication List Dapagliflozin Propanediol [Farxiga] 10 mg PO DAILY 04/01/19 [History] FLUoxetine HCL [PROzac] 20 mg PO DAILY 04/01/19 [History] Montelukast [Singulair] 10 mg PO HS 04/01/19 [History] metFORMIN HCL [Glucophage] 850 mg PO BID 04/01/19 [History] Artificial Tears-Hypromellose [Artificial Tear Drops] 2 drops BOTH EYES QID PRN #1 bottle 11/18/19 [Rx] Aspirin 325 mg PO DAILY 30 Days #30 tab 11/18/19 [Rx] Atorvastatin [Lipitor] 40 mg PO HS 30 Days #30 tab 11/18/19 [Rx] Insulin Glargine,Hum.rec.anlog [Basaglar Kwikpen U-100] 40 unit SQ HS 30 Days #2 pen 11/18/19 [Rx] Ipratropium-Albuterol Nebulize [Duoneb 0.5 mg-3 mg/3 ml Soln] 3 ml INHALATION RT-QID 30 Days #90 ml 11/18/19 [Rx] predniSONE 10 mg PO DIRECTED #21 tab 11/18/19 [Rx] valACYclovir [Valtrex] 500 mg PO BID #30 tab 11/18/19 [Rx] Follow up Appointment(s)/Referral(s): Zachariah Lyon MD [Primary Care Provider] - 1-2 days (Office closed. Call during normal business hours to schedule appointment. ) Albert Junior MD [STAFF PHYSICIAN] - 11/25/19 11:15 am Patient Instructions/Handouts: Scott Palsy (GEN), Glaucoma (GEN), Type 2 Diabetes in Adults: New Diagnosis (GEN) Activity/Diet/Wound Care/Special Instructions: Prescription sent to [facility] here in [facility] funds may be needed Activity Limited until follow-up Continue consistent carb heart healthy diet Continue monitoring blood sugars before meals at bedtime and keep a diary for primary care follow-up Continue with basaglar 40 units at night Continue with Valtrex until primary care follow-up Continue to lubricate the eye as instructed by neuro and keep taped for an additional 72 hours Continue with the prednisone taper as instructed Follow-up with ophthalmology outpatient Follow-up with primary care provider upon discharge Discharge Disposition: HOME SELF-CARE
== END 2019-11-18 16:54 | disposition home or self-care (01) | DRG 73 ==
LOC: EC 09:42 → 3SCARD 12:49
PROVIDERS: ADMIT Hospitalist; ATTEND Hospitalist
DX: G51.0 Bell's palsy (principal); E11.00 Type 2 diabetes mellitus with hyperosmolarity without nonketotic hyperglycemic-hyperosmolar coma (NKHHC); E87.1 Hypo-osmolality and hyponatremia; Z68.43 Body mass index [BMI] 50.0-59.9, adult; E78.5 Hyperlipidemia, unspecified; E66.9 Obesity, unspecified; E78.00 Pure hypercholesterolemia, unspecified; F17.200 Nicotine dependence, unspecified, uncomplicated; Z96.653 Presence of artificial knee joint, bilateral; G47.30 Sleep apnea, unspecified; F32.9 Major depressive disorder, single episode, unspecified; K21.9 Gastro-esophageal reflux disease without esophagitis; H35.30 Unspecified macular degeneration; E11.319 Type 2 diabetes mellitus with unspecified diabetic retinopathy without macular edema; G47.00 Insomnia, unspecified; M19.90 Unspecified osteoarthritis, unspecified site; H40.1190 Primary open-angle glaucoma, unspecified eye, stage unspecified; H02.532 Eyelid retraction right lower eyelid; Z11.59 Encounter for screening for other viral diseases; Z98.891 History of uterine scar from previous surgery; Z90.710 Acquired absence of both cervix and uterus; Z79.899 Other long term (current) drug therapy; Z79.4 Long term (current) use of insulin; Z87.01 Personal history of pneumonia (recurrent); Z85.42 Personal history of malignant neoplasm of other parts of uterus; Z83.3 Family history of diabetes mellitus; Z82.49 Family history of ischemic heart disease and other diseases of the circulatory system; Z80.51 Family history of malignant neoplasm of kidney
CPT/HCPCS: 36415; 70450; 70496; 70498; 70551; 71046; 80048; 80053; 80061; 82009; 82550; 82607; 82746; 83036; 84439; 84443; 84480; 84484; 85025; 85610; 85730; 93005; 93306; 94640; 94660; 99291

== ENCOUNTER 2021-01-01 06:48 | Day surgery (SDC) | payer MEDICARE ==
[2020-12-27 15:24] VITALS: BMI 50.2
[~2021-01-01 06:48] MED LIST changes: -ACETAMINOPHEN TAB 500 MG TAB PO ONE; +LACTATED RINGERS 1,000 ML IV SCH; +LIDOCAINE 1% (10MG/ML) FOR IV START INTRADERMA PRN; -MELOXICAM 7.5 MG TAB PO ONE; -TRANEXAMIC ACID 1,000 MG in SODIUM CHLORIDE 0.9% 100 ML IVPB ONE
[2021-01-01 07:19] VITALS: TEMP 97.9
[2021-01-01 07:26] LABS: Glucose,Whole Blood 153 mg/dL (75-99)
[2021-01-01] MEDS ORDERED: LIDOCAINE 1% INJ 10MG/ML (20 ML MDV) ONE (07:44)
[2021-01-01] MEDS ORDERED: PROPOFOL 10 MG/ML 20 ML VIAL IV ONE (07:44)
--- NOTE | 2021-01-01 08:10 | P.PCN ---
Date of Procedure: 01/01/21 Description of Procedure: BRIEF HISTORY: Patient is a 65-year-old female presenting for outpatient colonoscopy for screening for malignant neoplasm of the colon. No prior colonoscopy. Patient reported chronic left lower quadrant abdominal pain. Denied any change of bowel habits. PROCEDURE PERFORMED: Colonoscopy. PREOPERATIVE DIAGNOSIS: Screening for malignant neoplasm of the colon, no prior colonoscopy. ESTIMATED BLOOD LOSS: Minimal. IV sedation per Anesthesia. PROCEDURE: After informed consent was obtained, the patient, was brought into the endoscopy unit. IV sedation was administered by Anesthesia under continuous monitoring. Digital rectal examination was normal. Initially the Olympus CF-190 flexible video colonoscope was then inserted in the rectum, gradually advanced into the cecum without any difficulty. Careful examination was performed as the scope was gradually being withdrawn. Ileocecal valve and the appendiceal orifice were visualized and appeared normal. Prep was excellent. Mucosa of the cecum, ascending colon, transverse colon, descending colon, sigmoid colon, and rectum appeared normal. Retroflexion was performed in the rectum and no lesions were seen, moderate internal hemorrhoids noted. A few scattered diverticula noted in the left colon. The patient tolerated the procedure well. IMPRESSION: Mild left colonic diverticulosis. Internal hemorrhoids. RECOMMENDATIONS: Findings of this examination were discussed with the patient and her family. Okay to resume diet. Okay to resume medications. Recommend repeat colonoscopy in 10 years for screening for malignant neoplasm of the colon or sooner if any worrisome signs or symptoms develop.
[2021-01-01 08:24] VITALS: BP 174/76; PULSE 62; RESP 18
== END 2021-01-01 08:58 | disposition home or self-care (01) ==
LOC: ORWHC2ENDO 06:48
PROVIDERS: ATTEND Internal Medicine
DX: Z12.11 Encounter for screening for malignant neoplasm of colon (principal); K57.30 Diverticulosis of large intestine without perforation or abscess without bleeding; K64.8 Other hemorrhoids; J45.909 Unspecified asthma, uncomplicated; G47.33 Obstructive sleep apnea (adult) (pediatric); F17.200 Nicotine dependence, unspecified, uncomplicated; E11.9 Type 2 diabetes mellitus without complications; Z79.82 Long term (current) use of aspirin
CPT/HCPCS: 45378; J2001; J2704

== ENCOUNTER → 2021-03-14 | Outpatient (CLI) | payer MEDICARE ==
--- NOTE | 2021-03-20 10:39 | MM ---
Reason for exam: screening (asymptomatic). Last mammogram was performed 2 years and 8 months ago. History: Patient is postmenopausal and history of other cancer. Family history of breast cancer in grandmother. Physical Findings: A clinical breast exam by your physician is recommended on an annual basis and results should be correlated with mammographic findings. MG 3D Screening Mammo W/Cad Bilateral CC, MLO, and XCCL view(s) were taken. Prior study comparison: July 20, 2018, mammogram, performed at [place]. June 25, 2017, mammogram, performed at [place]. There are scattered fibroglandular densities. There is no discrete abnormality. No significant changes when compared with prior studies. ASSESSMENT: Negative, BI-RAD 1 RECOMMENDATION: Routine screening mammogram of both breasts in 1 year.
== END | disposition home or self-care (01) ==
LOC: RADMAMWWP 13:36
PROVIDERS: ATTEND Family Medicine
DX: Z12.31 Encounter for screening mammogram for malignant neoplasm of breast (principal); Z78.0 Asymptomatic menopausal state; Z80.3 Family history of malignant neoplasm of breast
CPT/HCPCS: 77063; 77067

== ENCOUNTER 2021-12-11 01:41 | Emergency (ER) | payer MEDICARE ==
[2021-12-11 01:48] VITALS: BP 159/77; PULSE 78; RESP 16; TEMP 97.6
--- NOTE | 2021-12-11 03:13 | XR ---
EXAMINATION TYPE: XR forearm RT DATE OF EXAM: 12/11/2021 COMPARISON: NONE HISTORY: Fall. Pain TECHNIQUE: 2 views FINDINGS: There is some narrowing and spurring at the first carpometacarpal joint. The radius and uln a appear intact. No fracture seen. Wrist joint not well evaluated. IMPRESSION: No acute abnormality of the right forearm. There is probably osteoarthritis at the base o f the thumb.
--- NOTE | 2021-12-11 03:15 | XR ---
EXAMINATION TYPE: XR humerus RT DATE OF EXAM: 12/11/2021 COMPARISON: NONE HISTORY: Fall. Pain TECHNIQUE: 2 views FINDINGS: Elbow joint is intact. There is evidence for impacted acute fracture of the humeral neck. N o dislocation. IMPRESSION: Impacted humeral neck fracture appears acute. No dislocation.
[2021-12-11] MEDS ORDERED: HYDROcodone/APAP 7.5-325MG 1 EACH TAB PO ONE (03:27)
[2021-12-11] MEDS ORDERED: ACET/COD 300 MG/30 MG STARTER PACK 6 TAB BTL PO STA (03:27)
--- NOTE | 2021-12-11 03:30 | ED ---
Upper Extremity HPI - General Chief Complaint: Extremity Injury, Upper Stated Complaint: Fall, Rt Shoulder Injury Time Seen by Provider: 12/11/21 01:52 Source: patient Mode of arrival: ambulatory Limitations: no limitations - History of Present Illness Initial Comments: Patient is a 66-year-old female presenting with chief complaint of right arm pain. Patient states that when she went to sit down in her chair she fell over onto the floor and landed on her right shoulder. Patient did not hit her head, denies any loss of consciousness, no blood thinners. No neck pain, nausea, vomiting, vision or hearing changes. Patient is admitting to pain from the shoulder down to the mid forearm she denies any numbness, tingling, weakness. She is guarding the arm. - Related Data Home Medications Medication Instructions Recorded Confirmed FLUoxetine HCL [PROzac] 20 mg PO DAILY 04/01/19 12/27/20 Montelukast [Singulair] 10 mg PO HS 04/01/19 12/27/20 metFORMIN HCL [Glucophage] 850 mg PO BID 04/01/19 12/27/20 Previous Rx's Medication Instructions Recorded Artificial Tears-Hypromellose 2 drops BOTH EYES QID PRN #1 bottle 11/18/19 [Artificial Tear Drops] Aspirin 325 mg PO DAILY 30 Days #30 tab 11/18/19 Atorvastatin [Lipitor] 40 mg PO HS 30 Days #30 tab 11/18/19 Insulin Glargine,Hum.rec.anlog 40 unit SQ HS 30 Days #2 pen 11/18/19 [Basaglar Kwikpen U-100] Ipratropium-Albuterol Nebulize 3 ml INHALATION RT-QID 30 Days #90 11/18/19 [Duoneb 0.5 mg-3 mg/3 ml Soln] ml Allergies Allergy/AdvReac Type Severity Reaction Status Date / Time No Known Allergies Allergy Verified 01/01/21 07:12 Review of Systems ROS Statement: Those systems with pertinent positive or pertinent negative responses have been documented in the HPI. ROS Other: All systems not noted in ROS Statement are negative. Past Medical History Past Medical History: Asthma, Cancer, COPD, Diabetes Mellitus, Eye Disorder, Osteoarthritis (OA), Pneumonia, Sleep Apnea/CPAP/BIPAP Additional Past Medical History / Comment(s): NIDDM type II, past Scott's palsey affected L side of face/resolved, hx. of uterine cancer with surgery/radiation, bilateral glaucoma and macular degeneration, UTIs, R carpal tunnel syndrome. History of Any Multi-Drug Resistant Organisms: None Reported Past Surgical History: Section, Hysterectomy, Joint Replacement Additional Past Surgical History / Comment(s): Total R knee arthroplasty, L eyelid blepharoplasty, bilateral eye surgeries for macular degeneration with L eye done twice, bilateral cataract removals. Additional Past Anesthesia/Blood Transfusion Reaction / Comment(s): Pt states she woke once and tried to pull out her ET tube. Past Psychological History: Depression Smoking Status: Current every day smoker - Past Family History Father Family Medical History: Cancer Mother Family Medical History: Diabetes Mellitus, Hypertension General Exam Limitations: no limitations General appearance: alert, in no apparent distress Head exam: Present: atraumatic, normocephalic, normal inspection Eye exam: Present: normal appearance, EOMI. Absent: scleral icterus, periorbital swelling Neck exam: Present: normal inspection Right Shoulder Exam: Present: normal inspection, tenderness. Absent: full ROM Upper Arm exam: Present: normal inspection, tenderness. Absent: full ROM Elbow exam: Present: normal inspection, full ROM Neurosensory exam: Present: other (Neurovascularly intact) Neurological exam: Present: alert, oriented X3, CN II-XII intact Psychiatric exam: Present: normal affect, normal mood Skin exam: Present: warm, dry, intact, normal color. Absent: rash Course Vital Signs 12/11/21 01:46 Temperature 97.6 F Pulse Rate 78 Respiratory 16 Rate Blood Pressure 159/77 O2 Sat by Pulse 98 Oximetry Medical Decision Making - Medical Decision Making Patient is a 66-year-old female presenting with chief complaint of right shoulder pain. Patient states this happened when she was trying to adjust herself in a chair and fell off onto the shoulder. She denies any numbness, tingling, weakness on exam there is pain with palpation and limited range of motion secondary to pain. Patient was found to have bed bugs, patient was decontaminated and moved to a clean room after decontamination. X-ray showed i mpacted humeral neck fracture. Patient was placed in an arm sling, instructed to follow-up with orthopedist. Patient is followed with Dr. Cornelius in the past, she is instructed to call him tomorrow morning. Report back to ER with any new or worsening symptoms. I discussed return parameters and answered all questions. I discussed supportive treatment with Motrin, Tylenol, ice, rest. Patient conveyed verbal understanding and agreed to the plan. I discussed this case with my attending Dr. Garcia. Disposition Clinical Impression: Fracture of neck of humerus Disposition: HOME SELF-CARE Condition: Good Instructions (If sedation given, give patient instructions): Arm Fracture in Adults (ED), Proximal Humerus Fracture (ED) Additional Instructions: Follow up with orthopedics in one to 2 days. Report back to ER with any new or worsening symptoms. Take medication as prescribed. Continue the use of the arm sling until cleared by orthopedics. Take Motrin and Tylenol as needed for pain control. Icing and resting the arm will help manage symptoms. Is patient prescribed a controlled substance at d/c from ED?: Yes When asked, does pt state using other controlled substances?: No If prescribed controlled substance>3 days was MAPS reviewed?: Prescribed <3 Days If opioid is for acute pain is fill amount 7 days or less?: Yes Referrals: Zachariah Lyon MD [Primary Care Provider] - 1-2 days Jr Perea MD [STAFF PHYSICIAN] - 1-2 days Time of Disposition: 03:29
== END 2021-12-11 03:57 | disposition home or self-care (01) ==
LOC: EC 01:41
DX: S42.291A Other displaced fracture of upper end of right humerus, initial encounter for closed fracture (principal); E11.9 Type 2 diabetes mellitus without complications; J44.9 Chronic obstructive pulmonary disease, unspecified; M19.90 Unspecified osteoarthritis, unspecified site; F32.A Depression, unspecified; F17.200 Nicotine dependence, unspecified, uncomplicated; Z79.4 Long term (current) use of insulin; Z79.84 Long term (current) use of oral hypoglycemic drugs; Z79.82 Long term (current) use of aspirin; Z79.899 Other long term (current) drug therapy; W07.XXXA Fall from chair, initial encounter
CPT/HCPCS: 99284

== ENCOUNTER 2022-12-10 21:49 | Observation (INO) | payer MEDICARE ==
--- NOTE | 2022-12-10 22:26 | ED ---
General Adult HPI - General Chief complaint: Shortness of Breath Stated complaint: SOB hyperglycemia Time Seen by Provider: 12/10/22 22:12 Source: patient, EMS Mode of arrival: EMS Limitations: no limitations - History of Present Illness Initial comments: Dictation was produced using [employer] dictation software. please excuse any grammatical, word or spelling errors. Chief Complaint: 67-year-old female presents emergency department with chest pain shortness of breath History of Present Illness: Patient is a 67-year-old female presents to the emergency department with chest pain and shortness of breath. Patient states she's had a cough. Been productive of clear sputum. She complains of sharp chest pain to the front back and right thorax. Patient states her symptoms have been ongoing for several days. Denies any fevers. She does however report having some chills. No nausea vomiting. Patient does not wear oxygen at home The ROS documented in this emergency department record has been reviewed and confirmed by me. Those systems with pertinent positive or negative responses have been documented in the HPI. All other systems are other negative and/or noncontributory. - Related Data Home Medications Medication Instructions Recorded Confirmed FLUoxetine HCL [PROzac] 20 mg PO HS 04/01/19 07/11/22 Montelukast [Singulair] 10 mg PO HS 04/01/19 07/11/22 Albuterol Sulfate [Ventolin HFA] 2 puff INHALATION RT-QID PRN 07/11/22 07/11/22 Budesonide/Formoterol Fumarate 2 puff INHALATION RT-BID 07/11/22 07/11/22 [Symbicort 160-4.5 Mcg Inhaler] Previous Rx's Medication Instructions Recorded Atorvastatin [Lipitor] 40 mg PO HS 30 Days #30 tab 11/18/19 Empagliflozin [Jardiance] 10 mg PO DAILY #30 tablet 07/15/22 Magnesium Oxide [Mag-Ox] 400 mg PO BID 14 Days #28 tab 07/15/22 amLODIPine [Norvasc] 5 mg PO DAILY #30 tab 07/15/22 metFORMIN HCL [Glucophage] 1,000 mg PO BID #60 tab 07/15/22 Allergies Allergy/AdvReac Type Severity Reaction Status Date / Time No Known Allergies Allergy Verified 12/10/22 22:08 Review of Systems ROS Statement: Those systems with pertinent positive or pertinent negative responses have been documented in the HPI. ROS Other: All systems not noted in ROS Statement are negative. Past Medical History Past Medical History: Asthma, Cancer, COPD, Diabetes Mellitus, Eye Disorder, Osteoarthritis (OA), Pneumonia, Sleep Apnea/CPAP/BIPAP Additional Past Medical History / Comment(s): NIDDM type II, past Scott's palsey affected L side of face/resolved, hx. of uterine cancer with surgery/radiation, bilateral glaucoma and macular degeneration, UTIs, R carpal tunnel syndrome. History of Any Multi-Drug Resistant Organisms: None Reported Past Surgical History: Section, Hysterectomy, Joint Replacement Additional Past Surgical History / Comment(s): Total R knee arthroplasty, L eyelid blepharoplasty, bilateral eye surgeries for macular degeneration with L eye done twice, bilateral cataract removals. Additional Past Anesthesia/Blood Transfusion Reaction / Comment(s): Pt states she woke once and tried to pull out her ET tube. Past Psychological History: Depression Smoking Status: Current every day smoker Past Alcohol Use History: Rare Past Drug Use History: Marijuana - Past Family History Father Family Medical History: Cancer Mother Family Medical History: Diabetes Mellitus, Hypertension General Exam - General Exam Comments Initial Comments: PHYSICAL EXAM: General Impression: Alert and oriented x3, not in acute distress HEENT: Normocephalic atraumatic, extra-ocular movements intact, pupils equal and reactive to light bilaterally, mucous membranes moist. Cardiovascular: Heart regular rate and rhythm Chest: Able to complete full sentences, diffuse rhonchi Abdomen: abdomen soft, non-tender, non-distended, no organomegaly Musculoskeletal: Pulses present and equal in all extremities, no peripheral edema Motor: no focal deficits noted Neurological: CN II-XII grossly intact, no focal motor or sensory deficits noted Skin: Intact with no visualized rashes Psych: Normal affect and mood Limitations: no limitations Course Vital Signs 12/10/22 12/10/22 12/11/22 21:51 22:05 00:18 Temperature 97.8 F 98.0 F Pulse Rate 68 66 Respiratory 22 24 22 Rate Blood Pressure 171/86 157/71 O2 Sat by Pulse 99 96 Oximetry EKG Findings - EKG Comments: EKG Findings:: My EKG interpretation: Ventricular rate 66, sinus rhythm,. 117, QRS 71, QTC 375. No [place] prolongation, no QTC prolongation, no ST or T-wave changes noted. Overall, this EKG is unremarkable Medical Decision Making - Medical Decision Making Was pt. sent in by a medical professional or institution (, PA, SAFETY NET MAKER, urgent care, hospital, or prison...) When possible be specific @ -No Did you speak to anyone other than the patient for history (EMS, parent, family, police, friend...)? What history was obtained from this source @ -No Did you review nursing and triage notes (agree or disagree)? Why? @ -I reviewed and agree with nursing and triage notes Were old charts reviewed (outside hosp., previous admission, EMS record, old EKG, old radiological studies, urgent care reports/EKG's, prison records)? Report findings @ -No old charts were reviewed Differential Diagnosis (chest pain, altered mental status, abdominal pain women, abdominal pain men, vaginal bleeding, musculoskeletal, weakness, fever, dyspnea, syncope, headache, dizziness, GI bleed, back pain, seizure, CVA, p alpatations, mental health)? @ -Differential Chest Pain: Stable Angina, Unstable Angina, STEMI, NSTEMI Aortic Dissection, Pneumothorax, Musculoskeletal, Esophageal Spasm GERD, Cholecystitis, Pancreatitis, Zoster, this is not meant to be an all-inclusive list. EKG interpreted by me (3pts min.). @ -As above X-rays interpreted by me (1pt min.). @ -Chest x-ray shows no acute processes. CT interpreted by me (1pt min.). @ -None done U/S interpreted by me (1pt. min.). @ -None done What testing was considered but not performed or refused? (CT, X-rays, U/S, labs)? Why? @ -None What meds were considered but not given or refused? Why? @ -None Did you discuss the management of the patient with other professionals (p rofessionals i.e. , PA, SAFETY NET MAKER, lab, RT, psych nurse, social professionals, cloth bin packer, teacher, strategic debriefing officer, porter sample case)? Give summary @ -No Was smoking cessation discussed for >3mins.? @ -No Was critical care preformed (if so, how long)? @ -No Were there social determinants of health that impacted care today? How? (Homelessness, low income, unemployed, alcoholism, drug addiction, transpor tation, low edu. Level, literacy, decrease access to med. care, fdc, rehab)? @ -No Was there de-escalation of care discussed even if they declined (Discuss DNR or withdrawal of care, Hospice)? DNR status @ -No What co-morbidities impacted this encounter? (DM, HTN, Smoking, COPD, CAD, Cancer, CVA, ARF, Chemo, Hep., AIDS, mental health diagnosis, sleep apnea, morbid obesity)? @ -None Was patient admitted / discharged? Hospital course, mention meds given and route, prescriptions, significant lab abnormalities, going to OR and other pertinent info. @ -67-year-old female presents emergency department for a tubal which is very typical features. Vital signs upon arrival are within acceptable limits. EKG is unremarkable. Laboratory evaluation showed mild leukocytosis likely secondary to stress. There is 6.0 potassium with slight hemolysis. Patient pending recheck. Rest of labs within acceptable limits. X-rays unremarkable. Patient be admitted to observation for cardiac monitoring, surgical device sales representative COPD treatment Undiagnosed new problem with uncertain prognosis? @ -No Drug Therapy requiring intensive monitoring for toxicity (Heparin, Nitro, Insulin, Cardizem)? @ -No Were any procedures done? @ -No Diagnosis/symptom? Acute, or Chronic, or Acute on Chronic? Uncomplicated (without systemic symptoms) or Complicated (systemic symptoms)? @ -1. chest pain Side effects of treatment? @ -No Exacerbation, Progression, or Severe Exacerbation? @ -No Poses a threat to life or bodily function? How? (Chest pain, [place], [place], pneumonia, PE, COPD, DKA, ARF, appy, cholecystitis, CVA, Diverticulitis, Homicidal, Tamayo icidal, threat to staff... and all critical care pts) @ -yes - Lab Data Result diagrams: 12/10/22 22:56 12/11/22 00:22 Lab Results 12/10/22 12/10/22 12/10/22 Range/Units 22:56 22:56 22:56 WBC 15.3 H (3.8-10.6) k/uL RBC 6.24 H (3.80-5.40) m/uL Hgb 14.5 (11.4-16.0) gm/dL Hct 48.9 H (34.0-46.0) % MCV 78.2 L (80.0-100.0) fL MCH 23.2 L (25.0-35.0) pg MCHC 29.7 L (31.0-37.0) g/dL RDW 15.2 (11.5-15.5) % Plt Count 376 (150-450) k/uL MPV 8.9 Neutrophils % 86 % Lymphocytes % 8 % Monocytes % 3 % Eosinophils % 2 % Basophils % 0 % Neutrophils # 13.2 H (1.3-7.7) k/uL Lymphocytes # 1.2 (1.0-4.8) k/uL Monocytes # 0.5 (0-1.0) k/uL Eosinophils # 0.3 (0-0.7) k/uL Basophils # 0.0 (0-0.2) k/uL Hypochromasia Marked PT 11.5 (9.0-12.0) sec INR 1.1 (<1.2) APTT 24.7 (22.0-30.0) sec Sodium (137-145) mmol/L Potassium (3.5-5.1) mmol/L Chloride (98-107) mmol/L Carbon Dioxide (22-30) mmol/L Anion Gap mmol/L BUN (7-17) mg/dL Creatinine (0.52-1.04) mg/dL Est GFR (CKD-EPI)AfAm (>60 ml/min/1.73 sqM) Est GFR (CKD-EPI)NonAf (>60 ml/min/1.73 sqM) Glucose (74-99) mg/dL Plasma Lactic Acid Edmond 2.1 H* (0.7-2.0) mmol/L Calcium (8.4-10.2) mg/dL Magnesium (1.6-2.3) mg/dL Total Bilirubin (0.2-1.3) mg/dL AST (14-36) U/L ALT (4-34) U/L Alkaline Phosphatase (38-126) U/L Troponin I (0.000-0.034) ng/mL NT-Pro-B Natriuret Pep pg/mL Total Protein (6.3-8.2) g/dL Albumin (3.5-5.0) g/dL 12/10/22 12/10/22 12/11/22 Range/Units 22:56 22:56 00:22 WBC (3.8-10.6) k/uL RBC (3.80-5.40) m/uL Hgb (11.4-16.0) gm/dL Hct (34.0-46.0) % MCV (80.0-100.0) fL MCH (25.0-35.0) pg MCHC (31.0-37.0) g/dL RDW (11.5-15.5) % Plt Count (150-450) k/uL MPV Neutrophils % % Lymphocytes % % Monocytes % % Eosinophils % % Basophils % % Neutrophils # (1.3-7.7) k/uL Lymphocytes # (1.0-4.8) k/uL Monocytes # (0-1.0) k/uL Eosinophils # (0-0.7) k/uL Basophils # (0-0.2) k/uL Hypochromasia PT (9.0-12.0) sec INR (<1.2) APTT (22.0-30.0) sec Sodium 132 L (137-145) mmol/L Potassium 6.0 H (3.5-5.1) mmol/L Chloride 101 (98-107) mmol/L Carbon Dioxide 26 (22-30) mmol/L Anion Gap 5 mmol/L BUN 15 (7-17) mg/dL Creatinine 0.66 (0.52-1.04) mg/dL Est GFR (CKD-EPI)AfAm >90 (>60 ml/min/1.73 sqM) Est GFR (CKD-EPI)NonAf >90 (>60 ml/min/1.73 sqM) Glucose 331 H (74-99) mg/dL Plasma Lactic Acid Edmond (0.7-2.0) mmol/L Calcium 8.5 (8.4-10.2) mg/dL Magnesium 1.6 (1.6-2.3) mg/dL Total Bilirubin 0.5 (0.2-1.3) mg/dL AST 24 (14-36) U/L ALT 15 (4-34) U/L Alkaline Phosphatase 196 H (38-126) U/L Troponin I <0.012 (0.000-0.034) ng/mL NT-Pro-B Natriuret Pep 172 pg/mL Total Protein 6.8 (6.3-8.2) g/dL Albumin 3.2 L (3.5-5.0) g/dL Disposition Clinical Impression: Chest pain Disposition: ADMITTED IP TO THIS [facility] Condition: Fair Referrals: Zachariah Lyon MD [Primary Care Provider] - 1-2 days Decision Time: 01:29
--- NOTE | 2022-12-10 23:19 | XR ---
EXAMINATION TYPE: XR chest 2V DATE OF EXAM: 12/10/2022 COMPARISON: 07/15/2022 INDICATION: Dyspnea TECHNIQUE: Frontal and lateral views of the chest are obtained. FINDINGS: The heart size is enlarged. The pulmonary vasculature is normal. The lungs are clear. IMPRESSION: 1. No acute pulmonary process. 2. cardiomegaly
[2022-12-10 23:26] LABS: Basophils % (A) 0 %; Eosinophils # (A) 0.3 k/uL (0-0.7); Eosinophils % (A) 2 %; HCT 48.9 % (34.0-46.0); HGB 14.5 gm/dL (11.4-16.0); Hypochromasia Marked; Lymphocytes # (A) 1.2 k/uL (1.0-4.8); Lymphocytes % (A) 8 %; MCH 23.2 pg (25.0-35.0); MCHC 29.7 g/dL (31.0-37.0); MCV 78.2 fL (80.0-100.0); Mean Platelet Volume 8.9; Monocytes # (A) 0.5 k/uL (0-1.0); Monocytes % (A) 3 %; Neutrophils # (A) 13.2 k/uL (1.3-7.7); Neutrophils % (A) 86 %; Platelet Count 376 k/uL (150-450); RBC 6.24 m/uL (3.80-5.40); RDW 15.2 % (11.5-15.5); WBC 15.3 k/uL (3.8-10.6)
[2022-12-10 23:39] LABS: INR 1.1 (<1.2); Partial Thromboplastin Time 24.7 sec (22.0-30.0); Prothrombin Time 11.5 sec (9.0-12.0)
[2022-12-11 01:03] LABS: ALT 15 U/L (4-34); African American GFR (CKD) >90 (>60 ml/min/1.73 sqM); Albumin 3.2 g/dL (3.5-5.0); Anion Gap 5 mmol/L; Blood Urea Nitrogen 15 mg/dL (7-17); Calcium 8.5 mg/dL (8.4-10.2); Carbon Dioxide 26 mmol/L (22-30); Chloride 101 mmol/L (98-107); Glucose 331 mg/dL (74-99); Non-African American GFR(CKD) >90 (>60 ml/min/1.73 sqM); Sodium 132 mmol/L (137-145); Total Bilirubin 0.5 mg/dL (0.2-1.3); Total Protein 6.8 g/dL (6.3-8.2)
[2022-12-11 01:06] LABS: AST 24 U/L (14-36); Alkaline Phosphatase 196 U/L (38-126); Magnesium 1.6 mg/dL (1.6-2.3)
[2022-12-11] MEDS ORDERED: NITROGLYCERIN SL TABS 0.4 MG TAB SUBLINGUAL PRN (01:24)
[2022-12-11] MEDS ORDERED: ASPIRIN 81 MG PO STA (01:24)
[2022-12-11] MEDS ORDERED: IPRATROPIUM-ALBUTEROL 3 ML NEB INHALATION PRN ×2 (01:26→02:08)
[2022-12-11] MEDS ORDERED: DEXAMETHASONE SOD PHOSPHATE 10 MG/ML 1 ML VIAL IV STA (01:26)
[2022-12-11] MEDS ORDERED: DEXTROSE 50% SYRINGE 50 ML IVP PRN ×2 (02:13)
[2022-12-11 03:29] LABS: Glucose,Whole Blood 309 mg/dL (70-110)
[2022-12-11] MEDS: IPRATROPIUM-ALBUTEROL 3 ML NEB INHALATION SCH ×4 (05:22→20:33)
[2022-12-11] MEDS: methylPREDNISolone SOD SUCCI 125 MG/2 ML VIAL IV SCH ×3 (05:30→17:11)
--- NOTE | 2022-12-11 07:00 | P.CNPUL ---
History of Present Illness Consult date: 12/11/22 Requesting physician: Kwabena Dominguez Reason for consult: COPD Chief complaint: Shortness of breath and persistent cough History of present illness: I am seeing this patient in new consultation today 12/11/2022 for suspected COPD exacerbation. Patient is a 64-year-old white female with past medical history significant for COPD, sleep apnea, diabetes mellitus, high cholesterol, high blood pressure, osteoarthritis, and is an ex-smoker. Patient has been seen in the office in the past for management of her obstructive sleep apnea. She apparently needs a new CPAP machine, due to the old machine breaking. Normally manages her COPD with a combination of Symbicort inhaler, Ventolin HFA, and albuterol nebulizations. Patient came into the emergency department late last night complaining of progressively worsening shortness of breath over the last 2 weeks, and a persistent cough that has been ongoing for about 4 months. Patient states that it started with a "cold", and eventually turned into a persistent cough that was originally productive with clear to cloudy sputum production. She states that she has some back and chest pain, that is worse with coughing and deep breathing. She states that she gets sick like this every spring and fall. Denies any fever, chills, myalgias, hemoptysis. Denies sick contacts. Patient is currently lying in bed, on 2 L/m nasal cannula, in no acute distress. She is not normally oxygen dependent at home. Chest x-ray on arrival showed no acute cardiopulmonary process. There was cardiomegaly without any acute heart failure. CBC on arrival shows a WBC count of 15.3, hemoglobin 14.5, hematocrit 48.9, platelets 376. BMP from this morning shows a sodium 132, potassium 6 but hemolyzed, serum bicarb 26, BUN 15, creatinine 0.66, glucose 331. Potassium is being rechecked. NT proBNP low. Troponin less than 0.012. ECG showed no acute evidence of ischemia. Patient is currently receiving DuoNeb's. She is slightly wheezy on auscultation. Vital signs are stable. Review of Systems REVIEW OF SYSTEMS: CONSTITUTIONAL: Denies any recent significant weight loss or weight gain. EYES: Denies change in vision. EARS, NOSE, MOUTH, THROAT: Denies headaches, denies sore throat. CARDIOVASCULAR: Denies chest pain, palpitations or syncopal episodes. RESPIRATORY: See HPI GASTROINTESTINAL: Denies change in appetite, abdominal pain, nausea and vomiting, or diarrhea GENITOURINARY: Denies hematuria, denies infections. MUSKULOSKELETAL: Denies pain, denies swelling. INTEGUMENTARY: Denies rash, denies eczema. NEUROLOGICAL: Denies recent memory loss, no recent seizure activity. PSYCHIATRIC: Denies anxiety, denies depression. HEMATOLOGIC/LYMPHATIC: Denies anemia, denies enlarged lymph node Past Medical History Past Medical History: Asthma, Cancer, COPD, Diabetes Mellitus, Eye Disorder, Osteoarthritis (OA), Pneumonia, Sleep Apnea/CPAP/BIPAP Additional Past Medical History / Comment(s): NIDDM type II, past Scott's palsey affected L side of face/resolved, hx. of uterine cancer with surgery/radiation, bilateral glaucoma and macular degeneration, UTIs, R carpal tunnel syndrome. History of Any Multi-Drug Resistant Organisms: None Reported Past Surgical History: Section, Hysterectomy, Joint Replacement Additional Past Surgical History / Comment(s): Total R knee arthroplasty, L eyelid blepharoplasty, bilateral eye surgeries for macular degeneration with L eye done twice, bilateral cataract removals. Additional Past Anesthesia/Blood Transfusion Reaction / Comment(s): Pt states she woke once and tried to pull out her ET tube. Past Psychological History: Depression Smoking Status: Current every day smoker Past Alcohol Use History: Rare Past Drug Use History: Marijuana - Past Family History Father Family Medical History: Cancer Mother Family Medical History: Diabetes Mellitus, Hypertension Medications and Allergies Home Medications Medication Instructions Recorded Confirmed Type FLUoxetine HCL [PROzac] 20 mg PO HS 04/01/19 07/11/22 History Montelukast [Singulair] 10 mg PO HS 04/01/19 07/11/22 History Atorvastatin [Lipitor] 40 mg PO HS 30 Days #30 tab 11/18/19 07/11/22 Rx Albuterol Sulfate [Ventolin HFA] 2 puff INHALATION RT-QID PRN 07/11/22 07/11/22 History Budesonide/Formoterol Fumarate 2 puff INHALATION RT-BID 07/11/22 07/11/22 History [Symbicort 160-4.5 Mcg Inhaler] Empagliflozin [Jardiance] 10 mg PO DAILY #30 tablet 07/15/22 Rx Magnesium Oxide [Mag-Ox] 400 mg PO BID 14 Days #28 tab 07/15/22 Rx amLODIPine [Norvasc] 5 mg PO DAILY #30 tab 07/15/22 Rx metFORMIN HCL [Glucophage] 1,000 mg PO BID #60 tab 07/15/22 Rx Allergies Allergy/AdvReac Type Severity Reaction Status Date / Time No Known Allergies Allergy Verified 12/10/22 22:08 Physical Exam Vitals: Vital Signs Temp Pulse Resp BP Pulse Ox 12/11/22 05:31 63 12/11/22 05:23 68 12/11/22 04:00 66 20 128/93 95 12/11/22 02:25 66 22 159/89 96 12/11/22 00:18 98.0 F 66 22 157/71 96 12/10/22 22:05 24 12/10/22 21:51 97.8 F 68 22 171/86 99 Intake and Output 12/10/22 12/10/22 12/11/22 14:59 22:59 06:59 Other: Weight 81.647 kg GENERAL EXAM: Alert, 67-year-old morbidly obese white female, comfortable in no apparent distress. HEAD: Normocephalic and atraumatic EYES: Normal reaction of pupils, equal size. NOSE: Clear with pink turbinates. THROAT: No erythema or exudates. NECK: No masses, no JVD. CHEST: No chest wall deformity. LUNGS: Equal air entry with with end expiratory wheezes. no crackles, rhonchi or dullness. On 2 L/m nasal cannula. No conversational dyspnea or accessory muscle use.. CVS: S1 and S2 normal with no audible murmur, regular rhythm. No extra heart sounds ABDOMEN: Obese abdomen, No hepatosplenomegaly, active bowel sounds, no guarding or rigidity. SPINE: No scoliosis or deformity SKIN: No rashes CENTRAL NERVOUS SYSTEM: No focal deficits, tone is normal in all 4 extremities. EXTREMITIES: There is no peripheral edema, clubbing, or cyanosis. Peripheral pulses are intact. Results - Laboratory Findings CBC and BMP: 12/10/22 22:56 12/11/22 00:22 PT/INR, D-dimer PT 11.5 sec (9.0-12.0) 12/10/22 22:56 INR 1.1 (<1.2) 07/19/23 22:56 Abnormal lab findings: Abnormal Labs 12/10/22 12/10/22 12/11/22 22:56 22:56 00:22 WBC 15.3 H RBC 6.24 H Hct 48.9 H MCV 78.2 L MCH 23.2 L MCHC 29.7 L Neutrophils # 13.2 H Sodium 132 L Potassium 6.0 H Glucose 331 H POC Glucose (mg/dL) Plasma Lactic Acid Edmond 2.1 H* Alkaline Phosphatase 196 H Albumin 3.2 L 12/11/22 03:26 WBC RBC Hct MCV MCH MCHC Neutrophils # Sodium Potassium Glucose POC Glucose (mg/dL) 309 H Plasma Lactic Acid Edmond Alkaline Phosphatase Albumin - Diagnostic Findings Chest x-ray: image reviewed Assessment and Plan Assessment: Acute COPD exacerbation, possibly secondary to subacute tracheobronchitis Acute hypoxemic respiratory failure, secondary to above, currently on 2 L/m nasal cannula Leukocytosis Obstructive sleep apnea, needs new CPAP machine due to the old machine being broke Diabetes mellitus type 2 Morbid obesity, with a BMI of 40.4 kg/m Plan: Patient's medications, labs, chest x-ray reviewed Continue supplemental oxygen Start the patient on a combination of bronchodilators, Symbicort inhaler, and IV Solu-Medrol Start the patient on empiric doxycycline and check procalcitonin level NovoLog insulin ACHS to sliding scale Recheck potassium We will continue to follow and make recommendations I have personally seen and examined the patient, performed the documentation and the assessment and plan as written. Number of minutes spent on the visit:20 . Time with Patient: Greater than 30
[2022-12-11 07:25] LABS: Glucose,Whole Blood 396 mg/dL (70-110)
[2022-12-11] MEDS: SYMBICORT 160-4.5 MCG INHALER INHALATION SCH ×2 (08:33→20:33)
[2022-12-11 09:23] LABS: Glucose,Whole Blood 358 mg/dL (70-110)
[2022-12-11] MEDS: DOXYCYCLINE 100 MG CAP PO SCH ×2 (09:46→21:42)
[2022-12-11] MEDS: BENZONATATE 100 MG CAP PO SCH ×3 (09:46→21:45)
[2022-12-11] MEDS: INSULIN ASPART (NovoLOG) 100 UNIT/ML VIAL SQ SCH ×4 (10:04→21:42)
[2022-12-11 11:41] LABS: Glucose,Whole Blood 365 mg/dL (70-110)
--- NOTE | 2022-12-11 13:12 | P.CRDCN ---
History of Present Illness History of present illness: HISTORY OF PRESENT ILLNESS: This is a 67-year-old female with a past medical history significant for COPD, diabetes, sleep apnea, nicotine dependence, and morbid obesity. Patient follows in the office with Dr. Turner but was last seen in the office in March 2020. We have been asked to see the patient in consultation for chest pain. Patient examined at the bedside. Patient states that she has been battling a cold for the past couple weeks and states it has been getting progressively worse. She reports shortness of breath that has increased over the past few days. She also reports increasing nonproductive cough. She presented to the emergency room for further evaluation. Patient is being treated for COPD exacerbation. Patient also complained of chest pain. She states that her chest pain started after she had been coughing repeatedly. She denied any radiation of the pain. Denies any nausea or vomiting. The patient is a current cigarette smoker. * EKG reveals sinus mechanism with low voltage QRS. No signs of acute ischemia. * Chest xray no acute pulmonary process. Cardiomegaly. * Laboratory data: WBC 15.3. Hemoglobin 14.5. Platelet count 376. D-dimer 0.43. Sodium 132. Potassium 6.0. BUN 15. Creatinine 0.66. Lactic acid 2.1. Repeat 1.5. ProBNP 172. Troponin negative 3. Pro-calcitonin 0.13. * Current home cardiac medications include none * Most recent echocardiogram obtained in October 2019 revealed ejection fraction 55-60%. Mild LVH. Echo was a technically difficult study and cardiac valves were not well visualized * Patient underwent Lexiscan stress test in February 2019 in the office which was negative for ischemia REVIEW OF SYSTEMS: At the time of my exam: CONSTITUTIONAL: Denies fever or chills. HEENT: Denies blurred vision, vision changes, or eye pain. Denies hemoptysis CARDIOVASCULAR: Denies chest pain. Denies orthopnea. Denies PND. Denies palpitations RESPIRATORY: Reports shortness of breath. GASTROINTESTINAL: Denies abdominal pain. Denies nausea or vomiting. HEMATOLOGIC: Denies bleeding disorders. GENITOURINARY: Denies any blood in urine. SKIN: Denies pruitis. Denies rash. PHYSICAL EXAM: VITAL SIGNS: Reviewed. GENERAL: Well-developed in no acute distress. HEENT: Head is normocephalic. Pupils are equal, round. Sclerae anicteric. Mucous membranes of the mouth are moist. Neck supple. No JVD or thyromegaly LUNGS: Respirations even and unlabored. Lungs decreased air exchange throughout HEART: Regular rate and rhythm. S1 and S2 heard. ABDOMEN: Soft. Nondistended. Nontender. EXTREMITIES: Normal range of motion. No clubbing or cyanosis. Peripheral pulses intact. No lower extremity edema NEUROLOGIC: Awake and alert. Oriented x 3. ASSESSMENT: Shortness of breath Acute COPD exacerbation Chest pain, appears pleuritic, secondary to above, troponin negative x 3, no evidence of acute coronary syndrome Hyperkalemia, with hemolysis of specimen History of sleep apnea, currently not utilizing a CPAP machine as patient states it is broken Diabetes with hyperglycemia Ongoing nicotine dependence Morbid obesity: BMI 40.4 PLAN: An acute coronary event has been ruled out Hemoglobin A1C and lipid panel pending Once patients acute issues have resolved, she may follow up in the office and will undergo Dobutamine stress test at that time. Smoking cessation recommended Pulmonary following. IV steroids and nebulizers per pulmonary service. Further recommendations pending patient course Nurse practitioner note has been reviewed by physician. Signing provider agrees with the documented findings, assessment, and plan of care. Past Medical History Past Medical History: Asthma, Cancer, COPD, Diabetes Mellitus, Eye Disorder, Osteoarthritis (OA), Pneumonia, Sleep Apnea/CPAP/BIPAP Additional Past Medical History / Comment(s): NIDDM type II, past Scott's palsey affected L side of face/resolved, hx. of uterine cancer with surgery/radiation, bilateral glaucoma and macular degeneration, UTIs, R carpal tunnel syndrome. History of Any Multi-Drug Resistant Organisms: None Reported Past Surgical History: Section, Hysterectomy, Joint Replacement Additional Past Surgical History / Comment(s): Total R knee arthroplasty, L eyel id blepharoplasty, bilateral eye surgeries for macular degeneration with L eye done twice, bilateral cataract removals. Additional Past Anesthesia/Blood Transfusion Reaction / Comment(s): Pt states she woke once and tried to pull out her ET tube. Past Psychological History: Depression Smoking Status: Current every day smoker Past Alcohol Use History: Rare Past Drug Use History: Marijuana - Past Family History Father Family Medical History: Cancer Mother Family Medical History: Diabetes Mellitus, Hypertension Medications and Allergies Home Medications Medication Instructions Recorded Confirmed Type Montelukast [Singulair] 10 mg PO HS 04/01/19 12/11/22 History Albuterol Sulfate [Ventolin HFA] 2 puff INHALATION RT-QID PRN 07/11/22 12/11/22 History Budesonide/Formoterol Fumarate 2 puff INHALATION RT-BID 07/11/22 12/11/22 Hist ory [Symbicort 160-4.5 Mcg Inhaler] Albuterol Nebulized [Ventolin 2.5 mg INHALATION RT-QID 12/11/22 12/11/22 History Nebulized] Allergies Allergy/AdvReac Type Severity Reaction Status Date / Time No Known Allergies Allergy Verified 12/11/22 06:58 Physical Exam Vitals: Vital Signs Temp Pulse Resp BP Pulse Ox 12/11/22 08:59 70 26 H 155/70 97 12/11/22 08:47 66 18 12/11/22 08:36 64 18 98 12/11/22 08:00 63 157/82 12/11/22 05:31 63 12/11/22 05:23 68 12/11/22 04:00 66 20 128/93 95 12/11/22 02:25 66 22 159/89 96 12/11/22 00:18 98.0 F 66 22 157/71 96 12/10/22 22:05 24 12/10/22 21:51 97.8 F 68 22 171/86 99 Intake and Output 12/10/22 12/11/22 12/11/22 22:59 06:59 14:59 Other: Weight 81.647 kg Results 12/10/22 22:56 12/11/22 00:22 Cardiac Enzymes 12/10/22 12/11/22 12/11/22 Range/Units 22:56 00:22 01:49 AST 24 (14-36) U/L Troponin I <0.012 <0.012 (0.000-0.034) ng/mL 12/11/22 Range/Units 04:59 AST (14-36) U/L Troponin I <0.012 (0.000-0.034) ng/mL Coagulation 12/10/22 Range/Units 22:56 PT 11.5 (9.0-12.0) sec APTT 24.7 (22.0-30.0) sec CBC 12/10/22 Range/Units 22:56 WBC 15.3 H (3.8-10.6) k/uL RBC 6.24 H (3.80-5.40) m/uL Hgb 14.5 (11.4-16.0) gm/dL Hct 48.9 H (34.0-46.0) % Plt Count 376 (150-450) k/uL Comprehensive Metabolic Panel 12/11/22 Range/Units 00:22 Sodium 132 L (137-145) mmol/L Potassium 6.0 H (3.5-5.1) mmol/L Chloride 101 (98-107) mmol/L Carbon Dioxide 26 (22-30) mmol/L BUN 15 (7-17) mg/dL Creatinine 0.66 (0.52-1.04) mg/dL Glucose 331 H (74-99) mg/dL Calcium 8.5 (8.4-10.2) mg/dL AST 24 (14-36) U/L ALT 15 (4-34) U/L Alkaline Phosphatase 196 H (38-126) U/L Total Protein 6.8 (6.3-8.2) g/dL Albumin 3.2 L (3.5-5.0) g/dL Current Medications Generic Name Dose Route Start Last Admin Trade Name Freq PRN Reason Stop Dose Admin Albuterol/Ipratropium 3 ml 12/11/22 06:00 12/11/22 08:33 Ipratropium-Albuterol 3 Ml Neb INHALATION 3 ml RT-Q6H CINDI Administration Albuterol/Ipratropium 3 ml 12/11/22 02:08 Ipratropium-Albuterol 3 Ml Neb INHALATION RT-Q2H PRN Shortness Of Breath Or Wheezing Aspirin 325 mg 12/12/22 09:00 Aspirin 325 Mg Tab PO DAILY CINDI Benzonatate 200 mg 12/11/22 09:00 12/11/22 09:46 Benzonatate 100 Mg Cap PO 200 mg TID CINDI Administration Budesonide/Formoterol Fumarate 2 puff 12/11/22 08:00 12/11/22 08:33 Symbicort 160-4.5 Mcg Inhaler INHALATION 2 puff RT-BID CINDI Administration Dextrose/Water 25 ml 12/11/22 02:13 Dextrose 50% Syringe 50 Ml IVP PER PROTOCOL PRN Hypoglycemia Protocol Dextrose/Water 50 ml 12/11/22 02:13 Dextrose 50% Syringe 50 Ml IVP PER PROTOCOL PRN Hypoglycemia Protocol Doxycycline Monohydrate 100 mg 12/11/22 09:00 12/11/22 09:46 Doxycycline 100 Mg Cap PO 100 mg BID CINDI Administration Protocol Insulin Aspart 0 unit 12/11/22 07:30 12/11/22 10:04 Insulin Aspart (Novolog) 100 Unit/Ml Vial SQ Not Given ACHS CINDI Protocol Methylprednisolone Sodium Succinate 60 mg 12/11/22 06:00 12/11/22 05:30 Methylprednisolone Sod Succi 125 Mg/2 Ml Vial IV 60 mg Q6HR CINDI Administration Montelukast Sodium 10 mg 12/11/22 21:00 Montelukast 10 Mg Tab PO HS CINDI Nitroglycerin 0.4 mg 12/11/22 01:24 Nitroglycerin Sl Tabs 0.4 Mg Tab SUBLINGUAL Q5M PRN Chest Pain Intake and Output 12/10/22 12/11/22 12/11/22 22:59 06:59 14:59 Other: Weight 81.647 kg 12/10/22 22:56 12/11/22 00:22
--- NOTE | 2022-12-11 13:42 | P.HPIM ---
History of Present Illness H&P Date: 12/11/22 History of present illness;Patient is a 64-year-old white female with past medical history significant for COPD, sleep apnea, diabetes mellitus, high cholesterol, high blood pressure, osteoarthritis who presented to the ER because of worsening shortness of breath. Patient stated that she has been noticing that her breathing is gradually worsening for the last 2 weeks, she also complaining of productive cough. Patient also complaining of chest pain which is central in location, radiating to the back, no aggravating or relieving factors associated with this chest pain. Denies any orthopnea or PND. No complain of swelling of feet. Denied any fever or chills. Patient states that she normally uses CPAP at home but his machine is broken so she needs a new one. Because of progressive shortness of breath and chest pain, patient came to the ER Initial lab work done in the ER showed WBC 15.3, hemoglobin 14.5, platelet count 376, sodium 132, potassium 6, BUN 15, creatinine 0.66, glucose 331, magnesium 1.6, EKG done in the ER heart rate 66, no T-wave inversion, no significant ST segment elevations seen in any leads, QRS 71 Chest x-ray done in the ER showed no acute pulmonary process Patient admitted to medicine service REVIEW OF SYSTEMS: CONSTITUTIONAL: No fever, no malaise, no fatigue. HEENT: No recent visual problems or hearing problems. Denied any sore throat. CARDIOVASCULAR: As mentioned in HPI PULMONARY: As mentioned in HPI GASTROINTESTINAL: No diarrhea, no nausea, no vomiting, no abdominal pain. NEUROLOGICAL: No headaches, no weakness, no numbness. HEMATOLOGICAL: Denies any bleeding or petechiae. GENITOURINARY: Denies any burning micturition, frequency, or urgency. MUSCULOSKELETAL/RHEUMATOLOGICAL: Denies any joint pain, swelling, or any muscle pain. ENDOCRINE: Denies any polyuria or polydipsia. The rest of the 14-point review of systems is negative. PHYSICAL EXAMINATION: GENERAL: The patient is alert and oriented x3, not in any acute distress. Well developed, well nourished. HEENT: Pupils are round and equally reacting to light. EOMI. No scleral icterus. No conjunctival pallor. Normocephalic, atraumatic. No pharyngeal erythema. No thyromegaly. CARDIOVASCULAR: S1 and S2 present. No murmurs, rubs, or gallops. PULMONARY: Coarse breath some bilaterally, expiratory wheeze audible ABDOMEN: Soft, nontender, nondistended, normoactive bowel sounds. No palpable organomegaly. MUSCULOSKELETAL: No joint swelling or deformity. EXTREMITIES: No cyanosis, clubbing, or pedal edema. NEUROLOGICAL: Gross neurological examination did not reveal any focal deficits. SKIN: No rashes. Assessment and plan Chest pain Acute COPD exacerbation Hyperkalemia Hypomagnesemia Acute hypoxemic respiratory failure, secondary to above, currently on 2 L/m nasal cannula Leukocytosis Obstructive sleep apnea Diabetes mellitus type 2 Morbid obesity, with a BMI of 40.4 kg/m Monitor vital signs Monitor CBC Monitor CMP Continue telemetry monitoring Trend troponins Ordered d-dimer ordered HbA1c levels Continue IV Solu-Medrol Continue breathing treatments Continue doxycycline Consult pulmonology Consult cardiology Labs and medication were reviewed.. Continue same treatment. Continue with symptomatic treatment. Resume home medication. Monitor labs and vitals. DVT and GI prophylaxis. Further recommendations as per clinical course of the patient Dictation was produced using [employer] dictation software. please excuse any grammatical, word or spelling errors. Past Medical History Past Medical History: Asthma, Cancer, COPD, Diabetes Mellitus, Eye Disorder, Osteoarthritis (OA), Pneumonia, Sleep Apnea/CPAP/BIPAP Additional Past Medical History / Comment(s): NIDDM type II, past Scott's palsey affected L side of face/resolved, hx. of uterine cancer with surgery/radiation, bilateral glaucoma and macular degeneration, UTIs, R carpal tunnel syndrome. History of Any Multi-Drug Resistant Organisms: None Reported Past Surgical History: Section, Hysterectomy, Joint Replacement Additional Past Surgical History / Comment(s): Total R knee arthroplasty, L eyelid blepharoplasty, bilateral eye surgeries for macular degeneration with L eye done twice, bilateral cataract removals. Additional Past Anesthesia/Blood Transfusion Reaction / Comment(s): Pt states she woke once and tried to pull out her ET tube. Past Psychological History: Depression Smoking Status: Current every day smoker Past Alcohol Use History: Rare Past Drug Use History: Marijuana - Past Family History Father Family Medical History: Cancer Mother Family Medical History: Diabetes Mellitus, Hypertension Medications and Allergies Home Medications Medication Instructions Recorded Confirmed Type Montelukast [Singulair] 10 mg PO HS 04/01/19 12/11/22 History Albuterol Sulfate [Ventolin HFA] 2 puff INHALATION RT-QID PRN 07/11/22 12/11/22 History Budesonide/Formoterol Fumarate 2 puff INHALATION RT-BID 07/11/22 12/11/22 History [Symbicort 160-4.5 Mcg Inhaler] Albuterol Nebulized [Ventolin 2.5 mg INHALATION RT-QID 12/11/22 12/11/22 History Nebulized] Allergies Allergy/AdvReac Type Severity Reaction Status Date / Time No Known Allergies Allergy Verified 12/11/22 06:58 Physical Exam Vitals: Vital Signs Temp Pulse Resp BP Pulse Ox 12/11/22 08:59 70 26 H 155/70 97 12/11/22 08:47 66 18 12/11/22 08:36 64 18 98 12/11/22 08:00 63 157/82 12/11/22 05:31 63 12/11/22 05:23 68 12/11/22 04:00 66 20 128/93 95 12/11/22 02:25 66 22 159/89 96 12/11/22 00:18 98.0 F 66 22 157/71 96 12/10/22 22:05 24 12/10/22 21:51 97.8 F 68 22 171/86 99 Intake and Output 12/10/22 12/11/22 12/11/22 22:59 06:59 14:59 Other: Weight 81.647 kg Results CBC & Chem 7: 12/10/22 22:56 12/11/22 00:22 Labs: Abnormal Lab Results - Last 24 Hours (Table) 12/10/22 12/10/22 12/11/22 Range/Units 22:56 22:56 00:22 WBC 15.3 H (3.8-10.6) k/uL RBC 6.24 H (3.80-5.40) m/uL Hct 48.9 H (34.0-46.0) % MCV 78.2 L (80.0-100.0) fL MCH 23.2 L (25.0-35.0) pg MCHC 29.7 L (31.0-37.0) g/dL Neutrophils # 13.2 H (1.3-7.7) k/uL Sodium 132 L (137-145) mmol/L Potassium 6.0 H (3.5-5.1) mmol/L Glucose 331 H (74-99) mg/dL POC Glucose (mg/dL) (70-110) mg/dL Plasma Lactic Acid Edmond 2.1 H* (0.7-2.0) mmol/L Alkaline Phosphatase 196 H (38-126) U/L Albumin 3.2 L (3.5-5.0) g/dL Procalcitonin (0.02-0.09) ng/mL 12/11/22 12/11/22 12/11/22 Range/Units 02:35 03:26 07:23 WBC (3.8-10.6) k/uL RBC (3.80-5.40) m/uL Hct (34.0-46.0) % MCV (80.0-100.0) fL MCH (25.0-35.0) pg MCHC (31.0-37.0) g/dL Neutrophils # (1.3-7.7) k/uL Sodium (137-145) mmol/L Potassium (3.5-5.1) mmol/L Glucose (74-99) mg/dL POC Glucose (mg/dL) 309 H 396 H (70-110) mg/dL Plasma Lactic Acid Edmond (0.7-2.0) mmol/L Alkaline Phosphatase (38-126) U/L Albumin (3.5-5.0) g/dL Procalcitonin 0.13 H (0.02-0.09) ng/mL 12/11/22 Range/Units 09:21 WBC (3.8-10.6) k/uL RBC (3.80-5.40) m/uL Hct (34.0-46.0) % MCV (80.0-100.0) fL MCH (25.0-35.0) pg MCHC (31.0-37.0) g/dL Neutrophils # (1.3-7.7) k/uL Sodium (137-145) mmol/L Potassium (3.5-5.1) mmol/L Glucose (74-99) mg/dL POC Glucose (mg/dL) 358 H (70-110) mg/dL Plasma Lactic Acid Edmond (0.7-2.0) mmol/L Alkaline Phosphatase (38-126) U/L Albumin (3.5-5.0) g/dL Procalcitonin (0.02-0.09) ng/mL
[2022-12-11] MEDS ORDERED: ALBUTEROL NEB (CONC) 2.5 MG/0.5 ML INHALATION ONE (17:00)
[2022-12-11] MEDS ORDERED: DEXTROSE 50% SYRINGE 50 ML IVP ONE (17:00)
[2022-12-11] MEDS ORDERED: INSULIN REGULAR 100 UNIT/ML VIAL (IV) IV ONE (17:00)
[2022-12-11] MEDS ORDERED: SODIUM POLYSTYRENE SULFONATE 15 GM/60 ML BOTTLE PO ONE (17:00)
[2022-12-11 17:15] LABS: Glucose,Whole Blood 389 mg/dL (70-110)
[2022-12-11 20:55] LABS: Glucose,Whole Blood 340 mg/dL (70-110)
[2022-12-11] MEDS: MONTELUKAST 10 MG TAB PO SCH (21:42)
[2022-12-12] MEDS: methylPREDNISolone SOD SUCCI 125 MG/2 ML VIAL IV SCH ×2 (00:20→05:53)
[2022-12-12] MEDS: IPRATROPIUM-ALBUTEROL 3 ML NEB INHALATION SCH ×4 (01:48→19:42)
[2022-12-12 06:16] LABS: Glucose,Whole Blood 366 mg/dL (70-110)
[2022-12-12] MEDS: INSULIN ASPART (NovoLOG) 100 UNIT/ML VIAL SQ SCH ×5 (06:57→20:26)
[2022-12-12] MEDS: SYMBICORT 160-4.5 MCG INHALER INHALATION SCH ×2 (07:36→19:42)
--- NOTE | 2022-12-12 08:13 | P.PN ---
Subjective HISTORY OF PRESENT ILLNESS: This is a 67-year-old female with a past medical history significant for COPD, diabetes, sleep apnea, nicotine dependence, and morbid obesity. Patient follows in the office with Dr. Turner but was last seen in the office in March 2020. We have been asked to see the patient in consultation for chest pain. Patient examined at the bedside. Patient states that she has been battling a cold for t he past couple weeks and states it has been getting progressively worse. She reports shortness of breath that has increased over the past few days. She also reports increasing nonproductive cough. She presented to the emergency room for further evaluation. Patient is being treated for COPD exacerbation. Patient also complained of chest pain. She states that her chest pain started after she had been coughing repeatedly. She denied any radiation of the pain. Denies any nausea or vomiting. The patient is a current cigarette smoker. * EKG reveals sinus mechanism with low voltage QRS. No signs of acute ischemia. * Chest xray no acute pulmonary process. Cardiomegaly. * Laboratory data: WBC 15.3. Hemoglobin 14.5. Platelet count 376. D-dimer 0.43. Sodium 132. Potassium 6.0. BUN 15. Creatinine 0.66. Lactic acid 2.1. Repeat 1.5. ProBNP 172. Troponin negative 3. Pro-calcitonin 0.13. * Current home cardiac medications include none * Most recent echocardiogram obtained in October 2019 revealed ejection fraction 55-60%. Mild LVH. Echo was a technically difficult study and cardiac valves were not well visualized * Patient underwent Lexiscan stress test in February 2019 in the office which was negative for ischemia REVIEW OF SYSTEMS: At the time of my exam: CONSTITUTIONAL: Denies fever or chills. HEENT: Denies blurred vision, vision changes, or eye pain. Denies hemoptysis CARDIOVASCULAR: Denies chest pain. Denies orthopnea. Denies PND. Denies palpitations RESPIRATORY: Reports shortness of breath. GASTROINTESTINAL: Denies abdominal pain. Denies nausea or vomiting. HEMATOLOGIC: Denies bleeding disorders. GENITOURINARY: Denies any blood in urine. SKIN: Denies pruitis. Denies rash. PHYSICAL EXAM: VITAL SIGNS: Reviewed. GENERAL: Well-developed in no acute distress. HEENT: Head is normocephalic. Pupils are equal, round. Sclerae anicteric. Mucous membranes of the mouth are moist. Neck supple. No JVD or thyromegaly LUNGS: Respirations even and unlabored. Lungs decreased air exchange throughout HEART: Regular rate and rhythm. S1 and S2 heard. ABDOMEN: Soft. Nondistended. Nontender. EXTREMITIES: Normal range of motion. No clubbing or cyanosis. Peripheral pulses intact. No lower extremity edema NEUROLOGIC: Awake and alert. Oriented x 3. ASSESSMENT: Shortness of breath Acute COPD exacerbation Chest pain, appears pleuritic, secondary to above, troponin negative x 3, no evidence of acute coronary syndrome Hyperkalemia, with hemolysis of specimen History of sleep apnea, currently not utilizing a CPAP machine as patient states it is broken Diabetes with hyperglycemia Ongoing nicotine dependence Morbid obesity: BMI 40.4 PLAN: An acute coronary event has been ruled out Hemoglobin A1C and lipid panel pending Once patients acute issues have resolved, she may follow up in the office and will undergo Dobutamine stress test at that time. Smoking cessation recommended Pulmonary following. IV steroids and nebulizers per pulmonary service. Further recommendations pending patient course Nurse practitioner note has been reviewed by physician. Signing provider agrees with the documented findings, assessment, and plan of care. THURSDAY Objective - Vital Signs Vital signs: Vital Signs Temp 97.8 F 12/12/22 01:26 Pulse 68 12/12/22 07:50 Resp 18 12/12/22 01:26 BP 171/79 12/12/22 01:26 Pulse Ox 95 12/12/22 07:36 FiO2 Intake & Output 12/11/22 12/12/22 12/12/22 18:59 06:59 18:59 Intake Total 120 Balance 120 Intake: Oral 120 Other: # Voids 1 1 - Labs CBC & Chem 7: 12/10/22 22:56 12/11/22 20:15 Labs: Abnormal Lab Results - Last 24 Hours (Table) 12/11/22 12/11/22 12/11/22 Range/Units 02:35 09:21 11:39 Potassium (3.5-5.1) mmol/L POC Glucose (mg/dL) 358 H 365 H (70-110) mg/dL Procalcitonin 0.13 H (0.02-0.09) ng/mL 12/11/22 12/11/22 12/11/22 Range/Units 14:10 17:12 20:15 Potassium 5.8 H 5.2 H (3.5-5.1) mmol/L POC Glucose (mg/dL) 389 H (70-110) mg/dL Procalcitonin (0.02-0.09) ng/mL 12/11/22 12/12/22 Range/Units 20:54 06:15 Potassium (3.5-5.1) mmol/L POC Glucose (mg/dL) 340 H 366 H (70-110) mg/dL Procalcitonin (0.02-0.09) ng/mL
[2022-12-12 08:19] LABS: Basophils # (A) 0.03 X 10*3/uL (0.00-0.10); Basophils % (A) 0.1 %; Eosinophils # (A) 0 X 10*3/uL (0.04-0.35); Eosinophils % (A) 0 %; HCT 45.1 % (37.2-46.3); HGB 13.5 d/dL (12.0-15.0); Lymphocytes # (A) 0.51 X 10*3/uL (0.90-5.00); Lymphocytes % (A) 2.5 %; MCH 23.1 pg (27.0-32.0); MCHC 29.9 d/dL (32.0-37.0); MCV 77.2 FL (80.0-97.0); Mean Platelet Volume 10.7 FL (9.5-12.2); Monocytes # (A) 0.27 X 10*3/uL (0.20-1.00); Monocytes % (A) 1.3 %; NRBC Per 100 WBC 0 X 10*3/uL (0.00-0.01); Neutrophils # (A) 19.21 X 10*3/uL (1.80-7.70); Neutrophils % (A) 95.6 %; Platelet Count 388 X 10*3/uL (140-440); RBC 5.84 X 10*6/uL (4.10-5.20); RDW 15.6 % (11.5-14.5); WBC 20.12 X 10*3/uL (4.50-10.00)
[2022-12-12 08:44] LABS: ALT 10 U/L (8-44); AST 11 U/L (13-35); Albumin 3.3 d/dL (3.8-4.9); Alkaline Phosphatase 166 U/L (41-126); Blood Urea Nitrogen 23.2 mg/dL (9.0-27.0); Calcium 8.9 mg/dL (8.7-10.3); Carbon Dioxide 25.6 mmol/L (21.6-31.8); Chloride 100 mmol/L (96-109); Chol/HDL Ratio 6.89 Ratio; Glucose 388 mg/dL (70-110); LDL Cholesterol,Calculated 163.3 mg/dL (0.0-131.0); Potassium 5.5 mmol/L (3.5-5.5); Sodium 134 mmol/L (135-145); Total Bilirubin <0.2 mg/dL (0.3-1.2); Total Protein 6.3 d/dL (6.2-8.2)
[2022-12-12] MEDS ORDERED: ASPIRIN 325 MG TAB PO SCH (09:00)
[2022-12-12] MEDS: BENZONATATE 100 MG CAP PO SCH ×3 (09:39→20:26)
[2022-12-12] MEDS: DOXYCYCLINE 100 MG CAP PO SCH ×2 (09:39→20:26)
--- NOTE | 2022-12-12 09:48 | P.PN ---
Subjective HISTORY OF PRESENT ILLNESS: This is a 67-year-old female with a past medical history significant for COPD, diabetes, sleep apnea, nicotine dependence, and morbid obesity. Patient follows in the office with Dr. Turner but was last seen in the office in March 2020. We have been asked to see the patient in consultation for chest pain. Patient examined at the bedside. Patient states that she has been battling a cold for t he past couple weeks and states it has been getting progressively worse. She reports shortness of breath that has increased over the past few days. She also reports increasing nonproductive cough. She presented to the emergency room for further evaluation. Patient is being treated for COPD exacerbation. Patient also complained of chest pain. She states that her chest pain started after she had been coughing repeatedly. She denied any radiation of the pain. Denies any nausea or vomiting. The patient is a current cigarette smoker. * EKG reveals sinus mechanism with low voltage QRS. No signs of acute ischemia. * Chest xray no acute pulmonary process. Cardiomegaly. * Laboratory data: WBC 15.3. Hemoglobin 14.5. Platelet count 376. D-dimer 0.43. Sodium 132. Potassium 6.0. BUN 15. Creatinine 0.66. Lactic acid 2.1. Repeat 1.5. ProBNP 172. Troponin negative 3. Pro-calcitonin 0.13. * Current home cardiac medications include none * Most recent echocardiogram obtained in October 2019 revealed ejection fraction 55-60%. Mild LVH. Echo was a technically difficult study and cardiac valves were not well visualized * Patient underwent Lexiscan stress test in February 2019 in the office which was negative for ischemia 12/12/2022 Patient examined this morning at the bedside. Patient reports improvement in her breathing today compared to yesterday. She also reports improvement in her cough. She currently denies any chest pain or pressure. Blood pressure is r unning on the higher side today with a SBP in the 170s. LDL 163. PHYSICAL EXAM: VITAL SIGNS: Reviewed. GENERAL: Well-developed in no acute distress. HEENT: Head is normocephalic. Pupils are equal, round. Sclerae anicteric. Mucous membranes of the mouth are moist. Neck supple. No JVD or thyromegaly LUNGS: Respirations even and unlabored. Lungs decreased air exchange throughout, improved from yesterday HEART: Regular rate and rhythm. S1 and S2 heard. ABDOMEN: Soft. Nondistended. Nontender. EXTREMITIES: Normal range of motion. No clubbing or cyanosis. Peripheral pulses intact. No lower extremity edema NEUROLOGIC: Awake and alert. Oriented x 3. ASSESSMENT: Shortness of breath Acute COPD exacerbation Chest pain, appears pleuritic, secondary to above, troponin negative x 3, no evidence of acute coronary syndrome Hyperkalemia, with hemolysis of specimen History of sleep apnea, currently not utilizing a CPAP machine as patient states it is broken Diabetes with hyperglycemia Ongoing nicotine dependence Morbid obesity: BMI 40.4 Hyperlipidemia, LDL 163 Tobacco smoker PLAN: Hemoglobin A1C 10.5 Lipid panel resulted. LDL 163. Will start atorvastatin 20mg at night Continue to monitor blood pressure. If BP remains elevated, will begin Losartan Once patients acute issues have resolved, she may follow up in the office and will undergo Dobutamine stress test at that time. Smoking cessation recommended Pulmonary following. IV steroids and nebulizers per pulmonary service. Further recommendations pending patient course Importance of smoking cessation was emphasized Nurse practitioner note has been reviewed by physician. Signing provider agrees with the documented findings, assessment, and plan of care. Dr. Lovell's Addendum On exam shortness of breath much better today and oriented moderate lung samaniego. Her chest pain is noncardiac in nature most likely related to repeated coughing in COPD exacerbation. She has multiple risk factors for coronary artery disease which includes poorly controlled diabetes, morbid obesity, dyslipidemia, hypertension and chronic steroid use because of COPD. For this we have started on statins. She needs better control of her blood glucose. We advised the exercise, weight reduction, smoking cessation I have personally seen and examined the patient. I have personally performed all the components of medical care documented above including detailed hisotry, review of system, physican exam, MDM and formulating the assessment and plan. I have personally reviewed the relevant labs, imaging and other diagnostics. I have discussed this in detail with my ELECTROGALVANIZING MACHINE OPERATOR who has helped me with this documentation. I have carefully reviewed this document before finalizing. Total time spent reviewing medical chart, examining patient, counselling patient and documentation [45] mins Thank you for letting cardiology team participating in this patient's care. Dr. Raheem Lovell MD Cardiovascular Disease Objective - Vital Signs Vital signs: Vital Signs Temp 98.1 F 12/12/22 07:00 Pulse 68 12/12/22 07:50 Resp 18 12/12/22 07:00 BP 170/81 12/12/22 07:00 Pulse Ox 95 12/12/22 07:36 FiO2 Intake & Output 12/11/22 12/12/22 12/12/22 18:59 06:59 18:59 Intake Total 120 Balance 120 Intake: Oral 120 Other: # Voids 1 1 1 - Labs CBC & Chem 7: 12/12/22 05:33 12/12/22 05:33 Labs: Abnormal Lab Results - Last 24 Hours (Table) 12/11/22 12/11/22 12/11/22 Range/Units 11:39 14:10 17:12 WBC (4.50-10.00) X 10*3/uL RBC (4.10-5.20) X 10*6/uL MCV (80.0-97.0) FL MCH (27.0-32.0) pg MCHC (32.0-37.0) d/dL RDW (11.5-14.5) % Neutrophils # (1.80-7.70) X 10*3/uL Lymphocytes # (0.90-5.00) X 10*3/uL Eosinophils # (0.04-0.35) X 10*3/uL Sodium (135-145) mmol/L Potassium 5.8 H (3.5-5.1) mmol/L BUN/Creatinine Ratio (12.00-20.00) Ratio Glucose (70-110) mg/dL POC Glucose (mg/dL) 365 H 389 H (70-110) mg/dL Total Bilirubin (0.3-1.2) mg/dL AST (13-35) U/L Alkaline Phosphatase (41-126) U/L Albumin (3.8-4.9) d/dL Albumin/Globulin Ratio (1.60-3.17) Ratio Cholesterol (0.00-200.00) mg/dL LDL Cholesterol, Calc (0.0-131.0) mg/dL HDL Cholesterol (40.00-60.00) mg/dL 12/11/22 12/11/22 12/12/22 Range/Units 20:15 20:54 05:33 WBC (4.50-10.00) X 10*3/uL RBC (4.10-5.20) X 10*6/uL MCV (80.0-97.0) FL MCH (27.0-32.0) pg MCHC (32.0-37.0) d/dL RDW (11.5-14.5) % Neutrophils # (1.80-7.70) X 10*3/uL Lymphocytes # (0.90-5.00) X 10*3/uL Eosinophils # (0.04-0.35) X 10*3/uL Sodium 134 L (135-145) mmol/L Potassium 5.2 H (3.5-5.1) mmol/L BUN/Creatinine Ratio 23.20 H (12.00-20.00) Ratio Glucose 388 H (70-110) mg/dL POC Glucose (mg/dL) 340 H (70-110) mg/dL Total Bilirubin <0.2 L (0.3-1.2) mg/dL AST 11 L (13-35) U/L Alkaline Phosphatase 166 H (41-126) U/L Albumin 3.3 L (3.8-4.9) d/dL Albumin/Globulin Ratio 1.10 L (1.60-3.17) Ratio Cholesterol 224.00 H (0.00-200.00) mg/dL LDL Cholesterol, Calc 163.3 H (0.0-131.0) mg/dL HDL Cholesterol 32.50 L (40.00-60.00) mg/dL 12/12/22 12/12/22 Range/Units 05:33 06:15 WBC 20.12 H (4.50-10.00) X 10*3/uL RBC 5.84 H (4.10-5.20) X 10*6/uL MCV 77.2 L (80.0-97.0) FL MCH 23.1 L (27.0-32.0) pg MCHC 29.9 L (32.0-37.0) d/dL RDW 15.6 H (11.5-14.5) % Neutrophils # 19.21 H (1.80-7.70) X 10*3/uL Lymphocytes # 0.51 L (0.90-5.00) X 10*3/uL Eosinophils # 0 L (0.04-0.35) X 10*3/uL Sodium (135-145) mmol/L Potassium (3.5-5.1) mmol/L BUN/Creatinine Ratio (12.00-20.00) Ratio Glucose (70-110) mg/dL POC Glucose (mg/dL) 366 H (70-110) mg/dL Total Bilirubin (0.3-1.2) mg/dL AST (13-35) U/L Alkaline Phosphatase (41-126) U/L Albumin (3.8-4.9) d/dL Albumin/Globulin Ratio (1.60-3.17) Ratio Cholesterol (0.00-200.00) mg/dL LDL Cholesterol, Calc (0.0-131.0) mg/dL HDL Cholesterol (40.00-60.00) mg/dL
--- NOTE | 2022-12-12 10:12 | P.PN ---
Subjective Progress Note Date: 12/12/22 I am seeing this patient in new consultation today 12/11/2022 for suspected COPD exacerbation. Patient is a 64-year-old white female with past medical history significant for COPD, sleep apnea, diabetes mellitus, high cholesterol, high blood pressure, osteoarthritis, and is an ex-smoker. Patient has been seen in the office in the past for management of her obstructive sleep apnea. She apparently needs a new CPAP machine, due to the old machine breaking. Normally manages her COPD with a combination of Symbicort inhaler, Ventolin HFA, and albuterol nebulizations. Patient came into the emergency department late last night complaining of progressively worsening shortness of breath over the last 2 weeks, and a persistent cough that has been ongoing for about 4 months. Patient states that it started with a "cold", and eventually turned into a persistent cough that was originally productive with clear to cloudy sputum production. She states that she has some back and chest pain, that is worse with coughing and deep breathing. She states that she gets sick like this every spring and fall. Denies any fever, chills, myalgias, hemoptysis. Denies sick contacts. Patient is currently lying in bed, on 2 L/m nasal cannula, in no acute distress. She is not normally oxygen dependent at home. Chest x-ray on arrival showed no acute cardiopulmonary process. There was cardiomegaly without any acute heart failure. CBC on arrival shows a WBC count of 15.3, hemoglobin 14.5, hematocrit 48.9, platelets 376. BMP from this morning shows a sodium 132, potassium 6 but hemolyzed, serum bicarb 26, BUN 15, creatinine 0.66, glucose 331. Potassium is being rechecked. NT proBNP low. Troponin less than 0.012. ECG showed no acute evidence of ischemia. Patient is currently receiving DuoNeb's. She is slightly wheezy on auscultation. Vital signs are stable. The patient is seen today 12/12/2022 in follow-up on the regular medical floor. She is currently sitting up in bed. Awake and alert in no acute distress. Breathing easier today compared to yesterday. Maintaining O2 saturations in the mid 90s on 2 L/m per nasal cannula. White count 20.1. Hemoglobin 13.5. Sodium 134. Potassium 5.5. Bicarb 26. BUN 23. Creatinine 1.0. Glucose 388. She remains on Symbicort, Singulair, DuoNeb inhalations, Solu-Medrol. Empiric doxycycline. Lluvia Bhatt for her cough. Objective - Vital Signs Vital signs: Vital Signs Temp 98.1 F 12/12/22 07:00 Pulse 68 12/12/22 07:50 Resp 18 12/12/22 07:00 BP 170/81 12/12/22 07:00 Pulse Ox 95 12/12/22 07:36 FiO2 Intake & Output 12/11/22 12/12/22 12/12/22 18:59 06:59 18:59 Intake Total 120 Balance 120 Intake: Oral 120 Other: # Voids 1 1 1 - Exam GENERAL EXAM: Alert, pleasant 67-year-old female, obese, sitting up in bed, on 2 L nasal cannula, comfortable in no apparent distress. HEAD: Normocephalic. EYES: Normal reaction of pupils, equal size. NOSE: Clear with pink turbinates. THROAT: No erythema or exudates. NECK: No masses, no JVD. CHEST: No chest wall deformity. LUNGS: Equal air entry with faint and extremities, diminished. CVS: S1 and S2 normal with no audible murmur, regular rhythm. ABDOMEN: No hepatosplenomegaly, normal bowel sounds, no guarding or rigidity. SPINE: No scoliosis or deformity SKIN: No rashes CENTRAL NERVOUS SYSTEM: No focal deficits, tone is normal in all 4 extremities. EXTREMITIES: There is no peripheral edema. No clubbing, no cyanosis. Periphera l pulses are intact. - Labs CBC & Chem 7: 12/12/22 05:33 12/12/22 05:33 Labs: Abnormal Lab Results - Last 24 Hours (Table) 12/11/22 12/11/22 12/11/22 Range/Units 11:39 14:10 17:12 WBC (4.50-10.00) X 10*3/uL RBC (4.10-5.20) X 10*6/uL MCV (80.0-97.0) FL MCH (27.0-32.0) pg MCHC (32.0-37.0) d/dL RDW (11.5-14.5) % Neutrophils # (1.80-7.70) X 10*3/uL Lymphocytes # (0.90-5.00) X 10*3/uL Eosinophils # (0.04-0.35) X 10*3/uL Sodium (135-145) mmol/L Potassium 5.8 H (3.5-5.1) mmol/L BUN/Creatinine Ratio (12.00-20.00) Ratio Glucose (70-110) mg/dL POC Glucose (mg/dL) 365 H 389 H (70-110) mg/dL Total Bilirubin (0.3-1.2) mg/dL AST (13-35) U/L Alkaline Phosphatase (41-126) U/L Albumin (3.8-4.9) d/dL Albumin/Globulin Ratio (1.60-3.17) Ratio Cholesterol (0.00-200.00) mg/dL LDL Cholesterol, Calc (0.0-131.0) mg/dL HDL Cholesterol (40.00-60.00) mg/dL 12/11/22 12/11/22 12/12/22 Range/Units 20:15 20:54 05:33 WBC (4.50-10.00) X 10*3/uL RBC (4.10-5.20) X 10*6/uL MCV (80.0-97.0) FL MCH (27.0-32.0) pg MCHC (32.0-37.0) d/dL RDW (11.5-14.5) % Neutrophils # (1.80-7.70) X 10*3/uL Lymphocytes # (0.90-5.00) X 10*3/uL Eosinophils # (0.04-0.35) X 10*3/uL Sodium 134 L (135-145) mmol/L Potassium 5.2 H (3.5-5.1) mmol/L BUN/Creatinine Ratio 23.20 H (12.00-20.00) Ratio Glucose 388 H (70-110) mg/dL POC Glucose (mg/dL) 340 H (70-110) mg/dL Total Bilirubin <0.2 L (0.3-1.2) mg/dL AST 11 L (13-35) U/L Alkaline Phosphatase 166 H (41-126) U/L Albumin 3.3 L (3.8-4.9) d/dL Albumin/Globulin Ratio 1.10 L (1.60-3.17) Ratio Cholesterol 224.00 H (0.00-200.00) mg/dL LDL Cholesterol, Calc 163.3 H (0.0-131.0) mg/dL HDL Cholesterol 32.50 L (40.00-60.00) mg/dL 12/12/22 12/12/22 Range/Units 05:33 06:15 WBC 20.12 H (4.50-10.00) X 10*3/uL RBC 5.84 H (4.10-5.20) X 10*6/uL MCV 77.2 L (80.0-97.0) FL MCH 23.1 L (27.0-32.0) pg MCHC 29.9 L (32.0-37.0) d/dL RDW 15.6 H (11.5-14.5) % Neutrophils # 19.21 H (1.80-7.70) X 10*3/uL Lymphocytes # 0.51 L (0.90-5.00) X 10*3/uL Eosinophils # 0 L (0.04-0.35) X 10*3/uL Sodium (135-145) mmol/L Potassium (3.5-5.1) mmol/L BUN/Creatinine Ratio (12.00-20.00) Ratio Glucose (70-110) mg/dL POC Glucose (mg/dL) 366 H (70-110) mg/dL Total Bilirubin (0.3-1.2) mg/dL AST (13-35) U/L Alkaline Phosphatase (41-126) U/L Albumin (3.8-4.9) d/dL Albumin/Globulin Ratio (1.60-3.17) Ratio Cholesterol (0.00-200.00) mg/dL LDL Cholesterol, Calc (0.0-131.0) mg/dL HDL Cholesterol (40.00-60.00) mg/dL Assessment and Plan Assessment: Acute COPD exacerbation, possibly secondary to subacute tracheobronchitis Acute hypoxemic respiratory failure, secondary to above, currently on 2 L/m nasal cannula Leukocytosis Obstructive sleep apnea, needs new CPAP machine due to the old machine being broke Diabetes mellitus type 2 Morbid obesity, with a BMI of 40.4 kg/m Hyperglycemia since admission Plan: The patient was seen and evaluated Labs and medications are reviewed Cleared for discharge from the pulmonary standpoint MS Solu-Medrol Initiate a prednisone taper starting at 30 mg daily for 4 days Complete a total of 7 days doxycycline Glucose control per medicine/PCP Follow-up in the office in 1 week I have personally seen and examined the patient, performed the documentation and the assessment and plan as written. Number of minutes spent on the visit: 10.
[2022-12-12 12:44] LABS: Glucose,Whole Blood 439 mg/dL (70-110)
--- NOTE | 2022-12-12 13:36 | P.DS ---
Providers Date of admission: 12/11/22 01:24 Expected date of discharge: 12/12/22 Attending physician: Gladis Mtz Consults: 12/11/22 05:27 Consult Physician Urgent Consulting Provider: Raheem Lovell Consult Reason/Comments: chest pain Do you want consulting provider notified?: Yes Primary care physician: Zachariah Mccormackqvi [facility] Hospital Course: Discharge diagnoses; Chest pain Acute COPD exacerbation Hyperkalemia Hypomagnesemia Acute hypoxemic respiratory failure, secondary to above, currently on 2 L/m nasal cannula Leukocytosis Obstructive sleep apnea Diabetes mellitus type 2 Morbid obesity, with a BMI of 40.4 kg/m Hospital course; Patient is a 64-year-old white female with past medical history significant for COPD, sleep apnea, diabetes mellitus, high cholesterol, high blood pressure, osteoarthritis who presented to the ER because of worsening shortness of breath. Patient stated that she has been noticing that her breathing is gradually w orsening for the last 2 weeks, she also complaining of productive cough. Patient also complaining of chest pain which is central in location, radiating to the back, no aggravating or relieving factors associated with this chest pain. Denies any orthopnea or PND. No complain of swelling of feet. Denied any fever or chills. Patient states that she normally uses CPAP at home but his machine is broken so she needs a new one. Because of progressive shortness of breath and chest pain, patient came to the ER Initial lab work done in the ER showed WBC 15.3, hemoglobin 14.5, platelet count 376, sodium 132, potassium 6, BUN 15, creatinine 0.66, glucose 331, magnesium 1.6, EKG done in the ER heart rate 66, no T-wave inversion, no significant ST segment elevations seen in any leads, QRS 71 Chest x-ray done in the ER showed no acute pulmonary process Patient admitted to medicine service 12/12. Patient seen and examined. Cardiology evaluated the patient, recommended starting patient on Lipitor, recommend outpatient follow-up at which time they will decide about stress test. Pulmonology recommended starting patient on tapered dose of prednisone and doxycycline. PHYSICAL EXAMINATION: GENERAL: The patient is alert and oriented x3, not in any acute distress. Well developed, well nourished. HEENT: Pupils are round and equally reacting to light. EOMI. No scleral icterus. No conjunctival pallor. Normocephalic, atraumatic. No pharyngeal erythema. No thyromegaly. CARDIOVASCULAR: S1 and S2 present. No murmurs, rubs, or gallops. PULMONARY: Chest is clear to auscultation, no wheezing or crackles. ABDOMEN: Soft, nontender, nondistended, normoactive bowel sounds. No palpable organomegaly. MUSCULOSKELETAL: No joint swelling or deformity. EXTREMITIES: No cyanosis, clubbing, or pedal edema. NEUROLOGICAL: Gross neurological examination did not reveal any focal deficits. SKIN: No rashes. Dictation was produced using [employer] dictation software. please excuse any grammatical, word or spelling errors. Patient Condition at Discharge: Fair Plan - Discharge Summary New Discharge Prescriptions: New predniSONE 30 mg PO DAILY #20 tab Doxycycline [Vibramycin] 100 mg PO BID #12 cap Atorvastatin [Lipitor] 20 mg PO HS #30 tab Continue Montelukast [Singulair] 10 mg PO HS Budesonide/Formoterol Fumarate [Symbicort 160-4.5 Mcg Inhaler] 2 puff INHALATION RT-BID Albuterol Sulfate [Ventolin HFA] 2 puff INHALATION RT-QID PRN PRN Reason: Shortness Of Breath Albuterol Nebulized [Ventolin Nebulized] 2.5 mg INHALATION RT-QID Discharge Medication List Montelukast [Singulair] 10 mg PO HS 04/01/19 [History] Albuterol Sulfate [Ventolin HFA] 2 puff INHALATION RT-QID PRN 07/11/22 [History] Budesonide/Formoterol Fumarate [Symbicort 160-4.5 Mcg Inhaler] 2 puff INHALATION RT-BID 07/11/22 [History] Albuterol Nebulized [Ventolin Nebulized] 2.5 mg INHALATION RT-QID 12/11/22 [History] Atorvastatin [Lipitor] 20 mg PO HS #30 tab 12/12/22 [Rx] Doxycycline [Vibramycin] 100 mg PO BID #12 cap 12/12/22 [Rx] predniSONE 30 mg PO DAILY #20 tab 12/12/22 [Rx] Follow up Appointment(s)/Referral(s): Zachariah Lyon MD [Primary Care Provider] - 1-2 days Gary Whiteside MD [Family Provider] - 1 Week Spencer Sanabria DO [STAFF PHYSICIAN] - 1 Week Discharge Disposition: HOME SELF-CARE
[2022-12-12 14:35] VITALS: BMI 40.3
[2022-12-12 17:02] LABS: Glucose,Whole Blood 380 mg/dL (70-110)
[2022-12-12 20:17] LABS: Glucose,Whole Blood 315 mg/dL (70-110)
[2022-12-12] MEDS: MONTELUKAST 10 MG TAB PO SCH (20:26)
[2022-12-12] MEDS ORDERED: INSULIN DETEMIR (LEVEMIR) 100 UNIT/ML SYR SQ SCH (21:00)
[2022-12-12] MEDS ORDERED: ATORVASTATIN 20 MG TAB PO SCH (21:00)
[2022-12-13 06:13] LABS: Glucose,Whole Blood 256 mg/dL (70-110)
[2022-12-13] MEDS: INSULIN ASPART (NovoLOG) 100 UNIT/ML VIAL SQ SCH ×4 (06:38→12:39)
[2022-12-13] MEDS: SYMBICORT 160-4.5 MCG INHALER INHALATION SCH (08:06)
[2022-12-13] MEDS: IPRATROPIUM-ALBUTEROL 3 ML NEB INHALATION SCH ×2 (08:07→10:51)
[2022-12-13 08:24] VITALS: BP 151/82; RESP 18; TEMP 98.3
[2022-12-13] MEDS: BENZONATATE 100 MG CAP PO SCH (08:53)
[2022-12-13] MEDS: DOXYCYCLINE 100 MG CAP PO SCH (08:54)
[2022-12-13] MEDS ORDERED: predniSONE 10 MG TAB PO SCH (09:00)
[2022-12-13] MEDS ORDERED: predniSONE 20 MG TAB PO SCH (09:00)
--- NOTE | 2022-12-13 09:58 | P.PN ---
Subjective Progress Note Date: 12/13/22 I am seeing this patient in new consultation today 12/11/2022 for suspected COPD exacerbation. Patient is a 64-year-old white female with past medical history significant for COPD, sleep apnea, diabetes mellitus, high cholesterol, high blood pressure, osteoarthritis, and is an ex-smoker. Patient has been seen in the office in the past for management of her obstructive sleep apnea. She apparently needs a new CPAP machine, due to the old machine breaking. Normally manages her COPD with a combination of Symbicort inhaler, Ventolin HFA, and albuterol nebulizations. Patient came into the emergency department late last night complaining of progressively worsening shortness of breath over the last 2 weeks, and a persistent cough that has been ongoing for about 4 months. Patient states that it started with a "cold", and eventually turned into a persistent cough that was originally productive with clear to cloudy sputum production. She states that she has some back and chest pain, that is worse with coughing and deep breathing. She states that she gets sick like this every spring and fall. Denies any fever, chills, myalgias, hemoptysis. Denies sick contacts. Patient is currently lying in bed, on 2 L/m nasal cannula, in no acute distress. She is not normally oxygen dependent at home. Chest x-ray on arrival showed no acute cardiopulmonary process. There was cardiomegaly without any acute heart failure. CBC on arrival shows a WBC count of 15.3, hemoglobin 14.5, hematocrit 48.9, platelets 376. BMP from this morning shows a sodium 132, potassium 6 but hemolyzed, serum bicarb 26, BUN 15, creatinine 0.66, glucose 331. Potassium is being rechecked. NT proBNP low. Troponin less than 0.012. ECG showed no acute evidence of ischemia. Patient is currently receiving DuoNeb's. She is slightly wheezy on auscultation. Vital signs are stable. The patient is seen today 12/12/2022 in follow-up on the regular medical floor. She is currently sitting up in bed. Awake and alert in no acute distress. Breathing easier today compared to yesterday. Maintaining O2 saturations in the mid 90s on 2 L/m per nasal cannula. White count 20.1. Hemoglobin 13.5. Sodium 134. Potassium 5.5. Bicarb 26. BUN 23. Creatinine 1.0. Glucose 388. She remains on Symbicort, Singulair, DuoNeb inhalations, Solu-Medrol. Empiric doxycycline. Tessalon Perles for her cough. The patient is seen today 12/13/2022 in follow-up on the regular medical floor. She is sitting up in bed having breakfast. Awake and alert in no acute distress. Breathing easier today compared to yesterday. She had been having issues with elevated blood sugar levels and has been initiated on metformin. She remains on DuoNeb inhalations, Symbicort, Singulair and prednisone taper. Empiric antibiotics in the form of Vibramycin. Tessalon Perles for her cough. Her current blood sugar is 256. Objective - Vital Signs Vital signs: Vital Signs Temp 98.3 F 12/13/22 07:00 Pulse 72 12/13/22 08:24 Resp 18 12/13/22 08:00 BP 151/82 12/13/22 07:00 Pulse Ox 93 L 12/13/22 08:11 FiO2 Intake & Output 12/12/22 12/13/22 12/13/22 18:59 06:59 18:59 Intake Total 590 Balance 590 Weight 81.647 kg Intake: Oral 590 Other: # Voids 2 1 - Exam GENERAL EXAM: Alert, obese 67-year-old female, obese, on 2 L nasal cannula, comfortable in no apparent distress. HEAD: Normocephalic. EYES: Normal reaction of pupils, equal size. NOSE: Clear with pink turbinates. THROAT: No erythema or exudates. NECK: No masses, no JVD. CHEST: No chest wall deformity. LUNGS: Equal air entry with faint and extremities, diminished. CVS: S1 and S2 normal with no audible murmur, regular rhythm. ABDOMEN: No hepatosplenomegaly, normal bowel sounds, no guarding or rigidity. SPINE: No scoliosis or deformity SKIN: No rashes CENTRAL NERVOUS SYSTEM: No focal deficits, tone is normal in all 4 extremities. EXTREMITIES: There is no peripheral edema. No clubbing, no cyanosis. Periphera l pulses are intact. - Labs CBC & Chem 7: 12/12/22 05:33 12/12/22 05:33 Labs: Abnormal Lab Results - Last 24 Hours (Table) 12/12/22 12/12/22 12/12/22 Range/Units 05:33 12:43 17:01 POC Glucose (mg/dL) 439 H 380 H (70-110) mg/dL Hemoglobin A1c 10.5 H (<=6.0) % 12/12/22 12/13/22 Range/Units 20:16 06:12 POC Glucose (mg/dL) 315 H 256 H (70-110) mg/dL Hemoglobin A1c (<=6.0) % Assessment and Plan Assessment: Acute COPD exacerbation, possibly secondary to subacute tracheobronchitis Acute hypoxemic respiratory failure, secondary to above, currently on 2 L/m nasal cannula Leukocytosis Obstructive sleep apnea, needs new CPAP machine due to the old machine being broke Diabetes mellitus type 2 Morbid obesity, with a BMI of 40.4 kg/m Hyperglycemia since admission Plan: The patient was seen and evaluated Labs and medications are reviewed Cleared for discharge from the pulmonary standpoint Decrease prednisone to 20 mg daily and complete a taper Complete a total of 7 days doxycycline Glucose control per medicine/PCP Follow-up in the office in 1 week I have personally seen and examined the patient, performed the documentation and the assessment and plan as written. Number of minutes spent on the visit: 10.
[2022-12-13 10:55] VITALS: PULSE 70
[2022-12-13 12:03] LABS: Glucose,Whole Blood 276 mg/dL (70-110)
--- NOTE | 2022-12-13 14:13 | P.PN ---
Subjective Progress Note Date: 12/13/22 Patient is a 64-year-old white female with past medical history significant for COPD, sleep apnea, diabetes mellitus, high cholesterol, high blood pressure, osteoarthritis who presented to the ER because of worsening shortness of breath. Patient stated that she has been noticing that her breathing is gradually worsening for the last 2 weeks, she also complaining of productive cough. Patient also complaining of chest pain which is central in location, radiating to the back, no aggravating or relieving factors associated with this chest pain. Denies any orthopnea or PND. No complain of swelling of feet. Denied any fever or chills. Patient states that she normally uses CPAP at home but his machine is broken so she needs a new one. Because of progressive shortness of breath and chest pain, patient came to the ER Initial lab work done in the ER showed WBC 15.3, hemoglobin 14.5, platelet count 376, sodium 132, potassium 6, BUN 15, creatinine 0.66, glucose 331, magnesium 1.6, EKG done in the ER heart rate 66, no T-wave inversion, no significant ST segment elevations seen in any leads, QRS 71 Chest x-ray done in the ER showed no acute pulmonary process Patient admitted to medicine service 12/12. Patient seen and examined. Cardiology evaluated the patient, recommended starting patient on Lipitor, recommend outpatient follow-up at which time they will decide about stress test. Pulmonology recommended starting patient on tapered dose of prednisone and doxycycline. 12/13. Patient seen and examined. Was discharged yesterday but was kept for elevated blood sugar levels, after starting metformin and Lantus blood sugars are improved. Being discharged in stable condition REVIEW OF SYSTEMS: CONSTITUTIONAL: No fever, no malaise,. CARDIOVASCULAR: No chest pain, no palpitations, no syncope. PULMONARY: No shortness of breath, no cough, GASTROINTESTINAL: No diarrhea, no nausea, no vomiting, no abdominal pain. NEUROLOGICAL: No headaches, no weakness, PHYSICAL EXAMINATION: GENERAL: The patient is alert and oriented x3, not in any acute distress. Well d eveloped, well nourished. HEENT: Pupils are round and equally reacting to light. EOMI. No scleral icterus. No conjunctival pallor. Normocephalic, atraumatic. No pharyngeal erythema. No thyromegaly. CARDIOVASCULAR: S1 and S2 present. No murmurs, rubs, or gallops. PULMONARY: Chest is clear to auscultation, no wheezing or crackles. ABDOMEN: Soft, nontender, nondistended, normoactive bowel sounds. No palpable organomegaly. MUSCULOSKELETAL: No joint swelling or deformity. EXTREMITIES: No cyanosis, clubbing, or pedal edema. NEUROLOGICAL: Gross neurological examination did not reveal any focal deficits. SKIN: No rashes. Assessment and plan Chest pain Acute COPD exacerbation Hyperkalemia Hypomagnesemia Acute hypoxemic respiratory failure, secondary to above, currently on 2 L/m nasal cannula Leukocytosis Obstructive sleep apnea Diabetes mellitus type 2 Morbid obesity, with a BMI of 40.4 kg/m Monitor vital signs Patient blood sugars are elevated, being discharged on Lantus and metformin. Continue tapering dose of prednisone Continue rest of home meds Labs and medication were reviewed.. Continue same treatment. Continue with symptomatic treatment. Resume home medication. Monitor labs and vitals. DVT and GI prophylaxis. Further recommendations as per clinical course of the patient Dictation was produced using [employer] dictation software. please excuse any grammatical, word or spelling errors. Objective - Vital Signs Vital signs: Vital Signs Temp 98.3 F 12/13/22 07:00 Pulse 70 12/13/22 10:51 Resp 18 12/13/22 08:00 BP 151/82 12/13/22 07:00 Pulse Ox 93 L 12/13/22 08:11 FiO2 Intake & Output 12/12/22 12/13/22 12/13/22 18:59 06:59 18:59 Intake Total 590 Balance 590 Weight 81.647 kg Intake: Oral 590 Other: # Voids 2 1 - Labs CBC & Chem 7: 12/12/22 05:33 12/12/22 05:33 Labs: Abnormal Lab Results - Last 24 Hours (Table) 12/12/22 12/12/22 12/13/22 Range/Units 17:01 20:16 06:12 POC Glucose (mg/dL) 380 H 315 H 256 H (70-110) mg/dL 12/13/22 Range/Units 12:02 POC Glucose (mg/dL) 276 H (70-110) mg/dL
== END 2022-12-13 13:51 | disposition home or self-care (01) ==
LOC: EC 21:49 → 6NMEDSUR 12-11 01:24
PROVIDERS: ADMIT Hospitalist; ATTEND Hospitalist
DX: J44.1 Chronic obstructive pulmonary disease with (acute) exacerbation (principal); R07.9 Chest pain, unspecified; E87.5 Hyperkalemia; E83.42 Hypomagnesemia; J96.01 Acute respiratory failure with hypoxia; Z99.81 Dependence on supplemental oxygen; D72.829 Elevated white blood cell count, unspecified; Z20.822 Contact with and (suspected) exposure to COVID-19; E66.01 Morbid (severe) obesity due to excess calories; Z68.41 Body mass index [BMI] 40.0-44.9, adult; G47.33 Obstructive sleep apnea (adult) (pediatric); E11.9 Type 2 diabetes mellitus without complications; E78.00 Pure hypercholesterolemia, unspecified; I10 Essential (primary) hypertension; M19.90 Unspecified osteoarthritis, unspecified site; Z79.51 Long term (current) use of inhaled steroids; Z79.899 Other long term (current) drug therapy; Z98.891 History of uterine scar from previous surgery; Z90.710 Acquired absence of both cervix and uterus; Z96.651 Presence of right artificial knee joint; Z98.42 Cataract extraction status, left eye; Z98.890 Other specified postprocedural states
CPT/HCPCS: 96376 ×3; 96374; 96375; 99285; 36415 ×2; 94640 ×6; 94760 ×3; 93005; 85379; 83880; 80061; 80053 ×2; 83605 ×2; 83735; 84132; 84484 ×2; 85025 ×2; 85610; 85730; 83036; 84145; 87636; 71046; G0378 ×3; J1100; J2930 ×2; J7512